=== PATIENT | female | born 1955 | race Caucasian/White ===

== ENCOUNTER → 2016-09-09 | Outpatient (REF) | payer MEDICARE ==
[~2016-09-09] MED LIST: AMIT24CA5 PO; CRAN250C2 PO; DITR5TAB PO; FISH1000 PO; GING500C2 PO; MAGN250T2 PO; MIRA33504 PO; OMEP40CA2 PO; PHAZ1CAP7 PO; PROBCAP4 PO; VENL37CA PO; VITA200T2 PO; [UNRECOGNIZED DRUG - OTHER] PO
[2016-09-09 12:07] LABS: BASO # 0.1 K/mm3 (0.0-0.2); BASO % 1.6 % (0.0-1.0); EOS # 0.1 K/mm3 (0.0-0.50); EOS % 2.2 % (0.0-3.0); LARGE UNSTAINED CELL # 0.4 K/mm3 (0.0-0.4); LARGE UNSTAINED CELL % 5.5 % (0.0-4.0); LYMPH # 2.1 K/mm3 (1.5-4.5); LYMPH % 27.1 % (24.0-44.0); MEAN CORPUSCULAR HEMOGLOBIN 29.4 pg (27.0-33.0); MEAN CORPUSCULAR HGB CONC 34.1 g/dl (32.0-36.5); MEAN CORPUSCULAR VOLUME 86.1 fl (80.0-96.0); MONO # 0.8 K/mm3 (0.0-0.8); MONO % 12.1 % (0.0-5.0); NEUTROPHILS # 3.3 K/mm3 (1.8-7.7); NEUTROPHILS % 51.5 % (36.0-66.0); PLATELET COUNT, AUTOMATED 273 k/mm3 (150-450); RED CELL DISTRIBUTION WIDTH 12.9 % (11.5-14.5); WHITE BLOOD COUNT 6.4 K/mm3 (4.0-10.0)
[2016-09-09 12:27] LABS: VITAMIN B12 LEVEL 507 PG/ML (247-911)
[2016-09-09 12:28] LABS: ALBUMIN 3.8 GM/DL (3.2-5.2); ALBUMIN/GLOBULIN RATIO 1.27 (1.00-1.93); ALKALINE PHOSPHATASE 78 U/L (45-117); ALT/SGPT 20 U/L (12-78); ANION GAP 8 MEQ/L (8-16); AST/SGOT 15 U/L (15-37); BILIRUBIN,TOTAL 0.6 MG/DL (0.2-1.0); BLOOD UREA NITROGEN 18 MG/DL (7-18); CALCIUM LEVEL 9.1 MG/DL (8.5-10.1); CARBON DIOXIDE LEVEL 29 MEQ/L (21-32); CHLORIDE LEVEL 106 MEQ/L (98-107); CHOLESTEROL LEVEL 251 MG/DL (<200); CREATININE FOR GFR 0.67 MG/DL (0.55-1.02); FERRITIN 27 NG/ML (8-252); GLOMERULAR FILTRATION RATE > 60.0 (>51); GLUCOSE, FASTING 86 MG/DL (70-105); POTASSIUM SERUM 4.9 MEQ/L (3.5-5.1); SODIUM LEVEL 143 MEQ/L (136-145); TOTAL PROTEIN 6.8 GM/DL (6.4-8.2); TRIGLYCERIDES LEVEL 88 MG/DL (<150)
== END ==
LOC: M SFHCCLAY 09:12
PROVIDERS: ATTEND Family Medicine
DX: R53.83 Other fatigue (principal); E78.2 Mixed hyperlipidemia; E16.2 Hypoglycemia, unspecified; R06.09 Other forms of dyspnea; Z79.899 Other long term (current) drug therapy
CPT/HCPCS: 80053; 80061; 82306; 82607; 82728; 83036; 84439; 84443; 85025; 93005; G0463

== ENCOUNTER → 2017-04-06 | Outpatient (REF) | payer MEDICARE ==
[~2017-04-06] MED LIST changes: -AMIT24CA5 PO; +AMIT24CA7 PO; -MAGN250T2 PO; +MAGN250T7 PO; +VENL37.52 PO; -VENL37CA PO
== END ==
LOC: M SMT 17:09
PROVIDERS: ATTEND Nurse Practitioner Women's Health
DX: N39.46 Mixed incontinence (principal)
CPT/HCPCS: 81001; 87088; 87186; G0463

== ENCOUNTER → 2017-04-14 | Outpatient (CLI) | payer MEDICARE ==
--- NOTE | 2017-04-14 15:54 | REP ---
Acute abdominal series including PA chest, upright abdomen and two supine views of the abdomen, total of four views: PA chest: The there are no comparisons. The lung ramirez are clear. Cardiac size is normal. The mj, mediastinum, and bony thorax are unremarkable. There is no free subdiaphragmatic air. Impression: Negative PA chest. Abdomen, supine upright views: There is a large volume of fecal residue throughout the colon. There is no bowel obstruction. There are one or two air-fluid levels in nondistended bowel loops. There are pelvic calcifications, likely phleboliths. There is a electronic device in the pelvis on the left. Impression: Large volume of fecal residue throughout the colon. Otherwise, negative supine and upright abdomen. There is an electronic device in the pelvis on the left. Signed by Mikel Goddard MD 04/14/2017 03:46 P
== END ==
LOC: M RAD 13:49
PROVIDERS: ATTEND Physician Assistant Medical
DX: K58.1 Irritable bowel syndrome with constipation (principal)

== ENCOUNTER → 2017-04-28 | Outpatient (REF) | payer MEDICARE | LOC: M SMT 17:11 | PROVIDERS: ATTEND Nurse Practitioner Women's Health | DX: N39.0 Urinary tract infection, site not specified (principal) ==

== ENCOUNTER → 2017-05-08 | Outpatient (REF) | payer MEDICARE ==
[2017-05-08 12:27] LABS: ALBUMIN 3.7 GM/DL (3.2-5.2); ALBUMIN/GLOBULIN RATIO 1.19 (1.00-1.93); ALKALINE PHOSPHATASE 75 U/L (45-117); ALT/SGPT 24 U/L (12-78); ANION GAP 9 MEQ/L (8-16); AST/SGOT 19 U/L (15-37); BILIRUBIN,TOTAL 0.6 MG/DL (0.2-1.0); BLOOD UREA NITROGEN 14 MG/DL (7-18); CALCIUM LEVEL 8.8 MG/DL (8.8-10.2); CARBON DIOXIDE LEVEL 29 MEQ/L (21-32); CHLORIDE LEVEL 108 MEQ/L (98-107); CHOLESTEROL LEVEL 274 MG/DL (<200); CREATININE FOR GFR 0.57 MG/DL (0.55-1.02); GLOMERULAR FILTRATION RATE > 60.0 (>45); GLUCOSE, FASTING 93 MG/DL (80-110); SODIUM LEVEL 146 MEQ/L (136-145); TOTAL PROTEIN 6.8 GM/DL (6.4-8.2); TRIGLYCERIDES LEVEL 91 MG/DL (<150)
== END ==
LOC: M SFHCCLAY 08:43
PROVIDERS: ATTEND Family Medicine
DX: E78.2 Mixed hyperlipidemia (principal)

== ENCOUNTER → 2017-05-11 | Outpatient (REF) | payer MEDICARE ==
[2017-05-12 12:38] LABS: MEAN CORPUSCULAR HEMOGLOBIN 30.2 pg (27.0-33.0); MEAN CORPUSCULAR HGB CONC 33.3 g/dl (32.0-36.5); MEAN CORPUSCULAR VOLUME 90.6 fl (80.0-96.0); RED CELL DISTRIBUTION WIDTH 12.4 % (11.5-14.5); WHITE BLOOD COUNT 5.7 K/mm3 (4.0-10.0)
[2017-05-12 23:26] LABS: EOSINOPHILS 2 % (0-5)
== END ==
LOC: M SFHCCLAY 18:52
PROVIDERS: ATTEND Family Medicine
DX: R53.83 Other fatigue (principal); E78.2 Mixed hyperlipidemia; K58.9 Irritable bowel syndrome, unspecified; K21.9 Gastro-esophageal reflux disease without esophagitis; F41.9 Anxiety disorder, unspecified; Z80.3 Family history of malignant neoplasm of breast; Z79.899 Other long term (current) drug therapy
CPT/HCPCS: 82306; 82607; 82728; 84439; 84443; 85007; 85027; G0463

== ENCOUNTER → 2017-11-13 | Outpatient (REF) | payer MEDICARE ==
[2017-11-13 17:36] LABS: ALBUMIN 3.9 GM/DL (3.2-5.2); ALBUMIN/GLOBULIN RATIO 1.26 (1.00-1.93); ALKALINE PHOSPHATASE 71 U/L (45-117); ALT/SGPT 18 U/L (12-78); ANION GAP 9 MEQ/L (8-16); AST/SGOT 20 U/L (7-37); BLOOD UREA NITROGEN 19 MG/DL (7-18); CALCIUM LEVEL 8.9 MG/DL (8.8-10.2); CARBON DIOXIDE LEVEL 29 MEQ/L (21-32); CHLORIDE LEVEL 103 MEQ/L (98-107); CHOLESTEROL LEVEL 241 MG/DL (<200); CHOLESTEROL RISK RATIO 4.547 (<5); CREATININE FOR GFR 0.77 MG/DL (0.55-1.30); FREE T4 1.04 NG/DL (0.76-1.46); GLOMERULAR FILTRATION RATE > 60.0 (>45); GLUCOSE, FASTING 87 MG/DL (70-100); HDL CHOLESTEROL 53 MG/DL (>40); LDL CHOLESTEROL 169.2 MG/DL (<100); NON-HDL-C 188 MG/DL; POTASSIUM SERUM 4.1 MEQ/L (3.5-5.1); SODIUM LEVEL 141 MEQ/L (136-145); TRIGLYCERIDES LEVEL 94 MG/DL (<150)
== END ==
LOC: M SFHCCLAY 09:35
DX: E78.2 Mixed hyperlipidemia (principal); R53.83 Other fatigue
CPT/HCPCS: 84443

== ENCOUNTER → 2017-11-25 | Outpatient (REF) | payer MEDICARE ==
[2017-11-25 16:40] LABS: ERYTHROCYTE SEDIMENTATION RATE 6 mm/hr (0-30)
[2017-11-25 17:07] LABS: C REACTIVE PROTEIN QUANTITATIV < 0.30 MG/DL (0.00-0.30)
[2017-11-25 17:07] LABS: RHEUMATOID FACTOR QUANT < 10.0 IU/ML (<15.0)
[2017-11-28 00:08] LABS: CYCLIC CITRULLINATED PEPTIDE 4 units (0-19)
[2017-11-28 00:08] LABS: ANA (HEP2) Negative (.)
== END ==
LOC: M SFHCCLAY 10:00
DX: R51 Headache (principal); R53.83 Other fatigue; R21 Rash and other nonspecific skin eruption
CPT/HCPCS: 86140

== ENCOUNTER → 2018-04-07 | Outpatient (REF) | payer MEDICARE ==
[2018-04-07 18:31] LABS: APPEARANCE, URINE HAZY (CLEAR); BACTERIA, URINE AUTO 1+ (NEGATIVE); BILIRUBIN, URINE AUTO NEGATIVE (NEGATIVE); BLOOD, URINE BLOOD NEGATIVE (NEGATIVE); CALCIUM OXALATE CRYSTALS LARGE; COLOR, URINE YELLOW (YELLOW); GLUCOSE, URINE (UA) AUTO NEGATIVE (NEGATIVE); KETONE, URINE AUTO NEGATIVE (NEGATIVE); LEUKOCYTE ESTERASE, URINE AUTO TRACE (NEGATIVE); MUCUS, URINE SMALL (NEGATIVE); NITRITE, URINE AUTO NEGATIVE (NEGATIVE); PROTEIN, URINE AUTO NEGATIVE (NEGATIVE); RBC, URINE AUTO 0 /HPF (0-3); SPECIFIC GRAVITY URINE AUTO 1.021 (1.002-1.035); SQUAMOUS EPITHELIAL CELL UR AU 2 /HPF (0-6); UROBILINOGEN, URINE AUTO 0.2 mg/dL (0.0-2.0); WBC, URINE AUTO 6 /HPF (0-3)
== END ==
LOC: M SMT 16:47
DX: R30.0 Dysuria (principal)
CPT/HCPCS: 81001

== ENCOUNTER → 2018-04-20 | Outpatient (REF) | payer MEDICARE ==
[2018-04-20 18:53] LABS: APPEARANCE, URINE CLEAR (CLEAR); BACTERIA, URINE AUTO NEGATIVE (NEGATIVE); BILIRUBIN, URINE AUTO NEGATIVE (NEGATIVE); BLOOD, URINE BLOOD NEGATIVE (NEGATIVE); COLOR, URINE YELLOW (YELLOW); GLUCOSE, URINE (UA) AUTO NEGATIVE (NEGATIVE); KETONE, URINE AUTO NEGATIVE (NEGATIVE); LEUKOCYTE ESTERASE, URINE AUTO NEGATIVE (NEGATIVE); MUCUS, URINE SMALL (NEGATIVE); NITRITE, URINE AUTO NEGATIVE (NEGATIVE); PROTEIN, URINE AUTO NEGATIVE (NEGATIVE); RBC, URINE AUTO 0 /HPF (0-3); SPECIFIC GRAVITY URINE AUTO 1.023 (1.002-1.035); SQUAMOUS EPITHELIAL CELL UR AU 1 /HPF (0-6); UROBILINOGEN, URINE AUTO 0.2 mg/dL (0.0-2.0); WBC, URINE AUTO 2 /HPF (0-3)
== END ==
LOC: M SMT 17:24
DX: N39.0 Urinary tract infection, site not specified (principal)
CPT/HCPCS: 81001

== ENCOUNTER 2018-05-04 15:40 | Emergency (ER) | payer MEDICARE ==
[2018-05-04 17:19] LABS: BASO # 0.1 10^3/uL (0.0-0.2); BASO % 0.6 % (0.0-1.0); EOS # 0.1 10^3/uL (0.0-0.50); EOS % 1.2 % (0.0-3.0); HEMATOCRIT 47.6 % (36.0-47.0); HEMOGLOBIN 15.8 g/dl (12.0-15.5); IMMATURE GRANULOCYTE % 0.4 % (0-3.0); LYMPH # 2.9 10^3/uL (1.5-4.5); LYMPH % 30.9 % (24.0-44.0); MEAN CORPUSCULAR HEMOGLOBIN 29.3 pg (27.0-33.0); MEAN CORPUSCULAR HGB CONC 33.2 g/dl (32.0-36.5); MEAN CORPUSCULAR VOLUME 88.1 fl (80.0-96.0); MONO # 0.7 10^3/uL (0.0-0.8); MONO % 7.6 % (0.0-5.0); NEUTROPHILS # 5.5 10^3/uL (1.8-7.7); NEUTROPHILS % 59.3 % (36.0-66.0); PLATELET COUNT, AUTOMATED 299 10^3/uL (150-450); RED CELL DISTRIBUTION WIDTH 12.1 % (11.5-14.5); WHITE BLOOD COUNT 9.3 10^3/uL (4.0-10.0)
[2018-05-04 17:25] LABS: KETONE, URINE AUTO RFX NEGATIVE (NEGATIVE); LEUKOCYTE ESTERASE UR AUTO RFX NEGATIVE (NEGATIVE); MUCUS, URINE RFX SMALL (NEGATIVE); NITRITE, URINE AUTO RFX NEGATIVE (NEGATIVE); RBC, URINE AUTO RFX 1 /HPF (0-3); SQUAM EPITHELIAL CELL UR AURFX 0 /HPF (0-6); WBC, URINE AUTO RFX 1 /HPF (0-3)
[2018-05-04 17:39] LABS: ALBUMIN 4.4 GM/DL (3.2-5.2); ALKALINE PHOSPHATASE 89 U/L (45-117); ALT/SGPT 21 U/L (12-78); ANION GAP 8 MEQ/L (8-16); AST/SGOT 19 U/L (7-37); BILIRUBIN,DIRECT 0.2 MG/DL (0.0-0.2); BILIRUBIN,TOTAL 0.8 MG/DL (0.2-1.0); BLOOD UREA NITROGEN 13 MG/DL (7-18); CALCIUM LEVEL 9.3 MG/DL (8.8-10.2); CARBON DIOXIDE LEVEL 29 MEQ/L (21-32); CHLORIDE LEVEL 102 MEQ/L (98-107); CREATININE FOR GFR 0.73 MG/DL (0.55-1.30); GLOMERULAR FILTRATION RATE > 60.0 (>45); GLUCOSE, FASTING 85 MG/DL (70-100); LIPASE 144 U/L (73-393); POTASSIUM SERUM 4.2 MEQ/L (3.5-5.1); SODIUM LEVEL 139 MEQ/L (136-145); TOTAL PROTEIN 8.4 GM/DL (6.4-8.2)
[2018-05-04] MEDS ORDERED: ISOVUE-370 76% 100ML VIAL (Q9967) As Ordered (17:51)
== END 2018-05-04 19:34 | disposition home or self-care (01) ==
LOC: M ED 15:40
DX: K59.00 Constipation, unspecified (principal); F41.9 Anxiety disorder, unspecified; K21.9 Gastro-esophageal reflux disease without esophagitis; Z87.19 Personal history of other diseases of the digestive system; Z79.899 Other long term (current) drug therapy
CPT/HCPCS: Q9967

== ENCOUNTER → 2018-06-08 | Outpatient (REF) | payer MEDICARE | LOC: M LAB REF 17:15 | DX: L98.8 Other specified disorders of the skin and subcutaneous tissue (principal) | CPT/HCPCS: 88305 ==

== ENCOUNTER → 2018-07-19 | Outpatient (REF) | payer MEDICARE ==
[2018-07-19 13:33] LABS: APPEARANCE, URINE HAZY (CLEAR); BACTERIA, URINE AUTO 1+ (NEGATIVE); BILIRUBIN, URINE AUTO NEGATIVE (NEGATIVE); BLOOD, URINE BLOOD NEGATIVE (NEGATIVE); COLOR, URINE YELLOW (YELLOW); GLUCOSE, URINE (UA) AUTO NEGATIVE (NEGATIVE); KETONE, URINE AUTO TRACE mg/dL (NEGATIVE); LEUKOCYTE ESTERASE, URINE AUTO 1+ (NEGATIVE); MUCUS, URINE SMALL (NEGATIVE); NITRITE, URINE AUTO NEGATIVE (NEGATIVE); PROTEIN, URINE AUTO 1+ mg/dL (NEGATIVE); RBC, URINE AUTO 1 /HPF (0-3); SPECIFIC GRAVITY URINE AUTO 1.025 (1.002-1.035); SQUAMOUS EPITHELIAL CELL UR AU 5 /HPF (0-6); WBC, URINE AUTO 39 /HPF (0-3); YEAST LIKE CELL URINE AUTO SMALL
== END ==
LOC: M SMT 13:11
DX: R10.9 Unspecified abdominal pain (principal)
CPT/HCPCS: 81001

== ENCOUNTER → 2018-07-28 | Outpatient (CLI) | payer MEDICARE | LOC: M RAD 08:52 | DX: R10.9 Unspecified abdominal pain (principal); Z87.442 Personal history of urinary calculi | CPT/HCPCS: 74176 ==

== ENCOUNTER → 2018-08-19 | Outpatient (REF) | payer MEDICARE ==
[~2018-08-19] MED LIST changes: +MYRB50TA; +YUVA10TA3; +mag citrate
== END ==
LOC: M SFHCCLAY 14:06
PROVIDERS: ATTEND Family Medicine
DX: Z87.440 Personal history of urinary (tract) infections (principal); K59.00 Constipation, unspecified; K58.9 Irritable bowel syndrome, unspecified
CPT/HCPCS: 87088; 87186; G0463

== ENCOUNTER → 2018-11-15 | Outpatient (REF) | payer MEDICARE ==
[2018-11-16 11:41] LABS: BASO # 0.1 10^3/uL (0.0-0.2); BASO % 0.7 % (0.0-1.0); EOS # 0.1 10^3/uL (0.0-0.50); HEMATOCRIT 44.1 % (36.0-47.0); HEMOGLOBIN 14.3 g/dl (12.0-15.5); LYMPH # 2.1 10^3/uL (1.5-4.5); LYMPH % 30.3 % (24.0-44.0); MEAN CORPUSCULAR HEMOGLOBIN 29.5 pg (27.0-33.0); MEAN CORPUSCULAR HGB CONC 32.4 g/dl (32.0-36.5); MEAN CORPUSCULAR VOLUME 90.9 fl (80.0-96.0); MONO # 0.6 10^3/uL (0.0-0.8); MONO % 8.2 % (0.0-5.0); NEUTROPHILS % 59.2 % (36.0-66.0); PLATELET COUNT, AUTOMATED 323 10^3/uL (150-450); RED BLOOD COUNT 4.85 10^6/uL (4.00-5.40); WHITE BLOOD COUNT 6.8 10^3/uL (4.0-10.0)
[2018-11-16 12:56] LABS: ALBUMIN 3.9 GM/DL (3.2-5.2); ALT/SGPT 18 U/L (12-78); BILIRUBIN,TOTAL 0.6 MG/DL (0.2-1.0); BLOOD UREA NITROGEN 15 MG/DL (7-18); CALCIUM LEVEL 8.9 MG/DL (8.8-10.2); CARBON DIOXIDE LEVEL 25 MEQ/L (21-32); CHLORIDE LEVEL 110 MEQ/L (98-107); CHOLESTEROL LEVEL 277 MG/DL (<200); CHOLESTEROL RISK RATIO 5.326 (<5); CREATININE FOR GFR 0.76 MG/DL (0.55-1.30); GLOMERULAR FILTRATION RATE > 60.0 (>45); GLUCOSE, FASTING 84 MG/DL (70-100); HDL CHOLESTEROL 52 MG/DL (>40); LDL CHOLESTEROL 209 MG/DL (<100); NON-HDL-C 225 MG/DL; POTASSIUM SERUM 5.5 MEQ/L (3.5-5.1); SODIUM LEVEL 141 MEQ/L (136-145); TOTAL PROTEIN 7.3 GM/DL (6.4-8.2); TRIGLYCERIDES LEVEL 80 MG/DL (<150)
== END ==
LOC: M SFHCCLAY 14:18
PROVIDERS: ATTEND Family Medicine
DX: E78.2 Mixed hyperlipidemia (principal); R53.82 Chronic fatigue, unspecified; R06.09 Other forms of dyspnea; Z13.21 Encounter for screening for nutritional disorder

== ENCOUNTER 2019-03-15 08:09 | Day surgery (SDC) | payer MEDICARE ==
[~2019-03-15] VITALS: Ht 162.6 cm; Wt 65.8 kg
[~2019-03-15 08:09] MED LIST changes: +EFFE37.5 PO; +EFFE75CA2 PO; +GREE250C2 PO; +LINZ145C PO; +MYRB50TA PO; +OMEG1CAP16 PO; +OSTE5TAB PO; +TOPA100T12 PO
[2019-03-15] MEDS ORDERED: NS 1,000 ML IV ONE (08:30)
[2019-03-15] MEDS ORDERED: PROPOFOL 200 MG/20 ML VIAL As Ordered ONE ×2 (09:10→09:20)
--- NOTE | 2019-03-15 09:35 | ROOR ---
Patient Name: Mirela Briones Procedure Date: 03/15/2019 9:05 AM Date of : 1955 Age: 64 Room: [facility] Gender: Female Note Status: Finalized Procedure: Colonoscopy Indications: High risk colon cancer surveillance: Personal history of colonic polyps, Family history of colon cancer in a first-degree relative Providers: Andrew WEBSTER MD Referring MD: JERRY YU DO Requesting Provider: Medicines: Monitored Anesthesia Care Complications: No immediate complications. Procedure: Pre-Anesthesia Assessment: - The heart rate, respiratory rate, oxygen saturations, blood pressure, adequacy of pulmonary ventilation, and response to care were monitored throughout the procedure. The Colonoscope was introduced through the anus and advanced to the terminal ileum, with identification of the appendiceal orifice and IC valve. The colonoscopy was performed without difficulty. The patient tolerated the procedure well. The quality of the bowel preparation was good. Findings: The perianal and digital rectal examinations were normal. A 5 mm polyp was found in the descending colon. The polyp was sessile. The polyp was removed with a cold snare. Resection and retrieval were complete. Internal hemorrhoids were found during retroflexion. The hemorrhoids were moderate. A diffuse area of mildly melanotic mucosa was found in the entire colon. The exam was otherwise without abnormality on direct and retroflexion views. Impression: - One 5 mm polyp in the descending colon, removed with a cold snare. Resected and retrieved. - Internal hemorrhoids. - The colon examination was otherwise normal on direct and retroflexion views. Recommendation: - Repeat colonoscopy in 5 years. Andrew Webster MD Andrew WEBSTER MD 03/15/2019 9:34:42 AM Electronically signed by Andrew WEBSTER MD Number of Addenda: 0 Note Initiated On: 03/15/2019 9:05 AM Estimated Blood Loss: Estimated blood loss: none.
[2019-03-15 09:50] VITALS: BP 116/68
== END 2019-03-15 09:59 | disposition home or self-care (01) ==
LOC: M OPP 08:09
PROVIDERS: ATTEND Internal Medicine Gastroenterology
DX: Z12.11 Encounter for screening for malignant neoplasm of colon (principal); Z86.010 Personal history of colon polyps; Z80.0 Family history of malignant neoplasm of digestive organs; K64.8 Other hemorrhoids; K63.89 Other specified diseases of intestine

== ENCOUNTER → 2019-05-23 | Outpatient (REF) | payer MEDICARE ==
[~2019-05-23] MED LIST changes: +APPL300T4 PO; +B-122500 PO; +BERBERINE PO; +GNP250TA9 PO; -OMEP40CA2 PO; +OMEP40CA97 PO; +VENL37.598 PO; +[UNRECOGNIZED DRUG - OTHER] PO
[2019-05-24 12:09] LABS: ALBUMIN 3.8 GM/DL (3.2-5.2); ALT/SGPT 15 U/L (12-78); BILIRUBIN,TOTAL 0.6 MG/DL (0.2-1.0); BLOOD UREA NITROGEN 14 MG/DL (7-18); CARBON DIOXIDE LEVEL 24 MEQ/L (21-32); CHLORIDE LEVEL 112 MEQ/L (98-107); CHOLESTEROL LEVEL 256 MG/DL (<200); CHOLESTEROL RISK RATIO 4.413 (<5); CREATININE FOR GFR 0.79 MG/DL (0.55-1.30); GLOMERULAR FILTRATION RATE > 60.0 (>45); GLUCOSE, FASTING 101 MG/DL (70-100); HDL CHOLESTEROL 58 MG/DL (>40); LDL CHOLESTEROL 176 MG/DL (<100); NON-HDL-C 198 MG/DL; POTASSIUM SERUM 4.1 MEQ/L (3.5-5.1); SODIUM LEVEL 142 MEQ/L (136-145); TOTAL PROTEIN 6.8 GM/DL (6.4-8.2); TRIGLYCERIDES LEVEL 108 MG/DL (<150)
[2019-05-24 12:15] LABS: VITAMIN B12 LEVEL 451 PG/ML (247-911)
== END ==
LOC: M SFHCCLAY 14:06
PROVIDERS: ATTEND Family Medicine
DX: E78.2 Mixed hyperlipidemia (principal); E53.8 Deficiency of other specified B group vitamins

== ENCOUNTER 2019-06-02 11:15 | Day surgery (SDC) | payer MEDICARE ==
[~2019-06-02] VITALS: Ht 162.6 cm; Wt 69.8 kg
[~2019-06-02 11:15] MED LIST changes: -APPL300T4 PO; -GNP250TA9 PO; +OMEP40CA2 PO; -OMEP40CA97 PO
[2019-06-02] MEDS ORDERED: NS 1,000 ML IV ONE (11:45)
[2019-06-02] MEDS ORDERED: LIDOCAINE 2% INJ 100 MG/5 ML SDV (FOR ANES.) As Ordered ONE (13:21)
[2019-06-02] MEDS ORDERED: PROPOFOL 200 MG/20 ML VIAL As Ordered ONE ×2 (13:21→13:29)
--- NOTE | 2019-06-02 13:32 | ROOR ---
Patient Name: Mirela Briones Procedure Date: 06/02/2019 1:15 PM Date of : 1955 Age: 64 Room: [facility] Gender: Female Note Status: Finalized Procedure: Upper GI endoscopy Indications: Heartburn, Abnormal CT of the GI tract Providers: Andrew WEBSTER MD Referring MD: JERRY YU DO Requesting Provider: Medicines: Monitored Anesthesia Care Complications: No immediate complications. Procedure: Pre-Anesthesia Assessment: - The heart rate, respiratory rate, oxygen saturations, blood pressure, adequacy of pulmonary ventilation, and response to care were monitored throughout the procedure. The Endoscope was introduced through the mouth, and advanced to the second part of duodenum. The upper GI endoscopy was accomplished without difficulty. The patient tolerated the procedure well. Findings: The esophagus was normal. The stomach was normal. The examined duodenum was normal. Biopsies were taken with a cold forceps in the entire examined stomach for histology. Impression: - Normal esophagus. - Normal stomach. - Normal examined duodenum. - Biopsies were taken with a cold forceps for histology in the entire examined stomach. Recommendation: - Telephone endoscopist for pathology results in 2 weeks. - Observe patient's clinical course. Andrew Webster MD Andrew WEBSTER MD 06/02/2019 1:32:24 PM Electronically signed by Andrew WEBSTER MD Number of Addenda: 0 Note Initiated On: 06/02/2019 1:15 PM Estimated Blood Loss: Estimated blood loss: none.
[2019-06-02 13:55] VITALS: BP 121/84
== END 2019-06-02 14:07 | disposition home or self-care (01) ==
LOC: M OPP 11:15
PROVIDERS: ATTEND Internal Medicine Gastroenterology
DX: R93.3 Abnormal findings on diagnostic imaging of other parts of digestive tract (principal); R12 Heartburn; M19.90 Unspecified osteoarthritis, unspecified site; F41.9 Anxiety disorder, unspecified; R51 Headache; Z97.8 Presence of other specified devices; Z87.442 Personal history of urinary calculi; Z91.048 Other nonmedicinal substance allergy status; Z91.040 Latex allergy status

== ENCOUNTER 2019-09-08 11:23 | Day surgery (SDC) | payer MEDICARE ==
[~2019-09-08] VITALS: Ht 162.6 cm; Wt 72.6 kg
[~2019-09-08 11:23] MED LIST changes: +APPL300T4 PO; +GNP250TA9 PO; +LR 1,000 ML IV ONE; -OMEP40CA2 PO; +OMEP40CA97 PO
[2019-09-08] MEDS ORDERED: BERBERINE PO (12:27)
[2019-09-08] MEDS ORDERED: propofoL 200 MG/20 ML VIAL As Ordered ONE (12:49)
[2019-09-08] MEDS ORDERED: MIDAZOLAM INJ 2 MG/2 ML VIAL (J2250) As Ordered ONE (12:50)
[2019-09-08] MEDS ORDERED: fentaNYL 100 MCG/2 ML INJECTION (J3010) As Ordered ONE (12:51)
[2019-09-08] MEDS ORDERED: LIDOCAINE 2% INJ 100 MG/5 ML SDV (FOR ANES.) As Ordered ONE (12:51)
[2019-09-08] MEDS ORDERED: dexameTHASONE 4 MG/ML 1ML VIAL (J1100) As Ordered ONE (12:51)
[2019-09-08] MEDS ORDERED: ONDANSETRON 4MG/2ML VIAL (J2405) As Ordered ONE (12:51)
[2019-09-08] MEDS ORDERED: ROCURONIUM BROMIDE 50 MG/5 ML VIAL As Ordered ONE (12:52)
[2019-09-08] MEDS ORDERED: LIDOCAINE 1% SDV INJ 30 ML VIAL As Ordered ONE (14:13)
[2019-09-08] MEDS ORDERED: KETAMINE HCL 200 MG/20 ML VIAL As Ordered ONE (15:00)
[2019-09-08 15:55] VITALS: BP 110/61
--- NOTE | 2019-09-08 17:35 | RO ---
DATE OF PROCEDURE: 09/08/2019 PREOPERATIVE DIAGNOSIS: Desire for removal of her InterStim. POSTOPERATIVE DIAGNOSIS: Desire for removal of her InterStim. PROCEDURE: Removal of InterStim device and lead. SURGEON: Saray Triana MD CERTIFIED MEDICINE AIDE: None. ANESTHESIA: Monitored anesthesia care (MAC) and local. DESCRIPTION OF PROCEDURE: Mirela was brought to the operating room where sufficient MAC sedation was given, and she was placed prone as typical for these cases and prepped and draped in the usual fashion. Local 1% lidocaine was injected over the midline site of the lead placement and the site of the pocket placement. That was given a full minute to set up and then we incised over the device, carefully dissected down to the pocket and removed the InterStim device. We then wiggled the connection to the lead so that we could locate the lead over the lower spine/upper sacrum and then made a careful incision there over the site of previous placement. And using the angled forceps, we were able to bring the lead out through that wound. We then cut it from the actual device and withdrew the rest of the lead through the wound so that we could wrap that around a Ava to hold the lead carefully. And placing it in the proper direction and under gentle but persistent tension, carefully sahra the lead out from its third sacrum foramen placement. We were able to draw the lead out and see the end where we had all of the end of the lead all the metal sites, all four of them intact, then we withdrew the lead intact and complete. Then, carefully did a deep closure of the pocket over the patient's posterior left side and then used #3-0 Vicryl for the skin of the two wounds and put dry sterile dressings in place. Estimated blood loss for the procedure was maybe 3 mL. Fluid replacement: Crystalloid. Complications: None. Condition and Disposition: Mirela tolerated the procedure well and was recovering in the recovery room in good condition.
== END 2019-09-08 16:05 | disposition home or self-care (01) ==
LOC: M SDC 11:23
PROVIDERS: ATTEND Obstetrics & Gynecology
DX: Z45.49 Encounter for adjustment and management of other implanted nervous system device (principal); R51 Headache; F41.9 Anxiety disorder, unspecified; K21.9 Gastro-esophageal reflux disease without esophagitis; K58.9 Irritable bowel syndrome, unspecified; K59.00 Constipation, unspecified; E78.2 Mixed hyperlipidemia; J45.909 Unspecified asthma, uncomplicated; N28.9 Disorder of kidney and ureter, unspecified; M54.9 Dorsalgia, unspecified; Z87.440 Personal history of urinary (tract) infections; E53.8 Deficiency of other specified B group vitamins; M19.90 Unspecified osteoarthritis, unspecified site; Z87.891 Personal history of nicotine dependence; Z91.048 Other nonmedicinal substance allergy status; Z79.899 Other long term (current) drug therapy
CPT/HCPCS: 64595; J1100; J2250; J2405; J3010

== ENCOUNTER → 2019-10-14 | Outpatient (CLI) | payer MEDICARE ==
[~2019-10-14] MED LIST changes: -LR 1,000 ML IV ONE
--- NOTE | 2019-10-14 15:04 | REPVR ---
PROCEDURE INFORMATION: Exam: MR Lumbar Spine Without Contrast. Exam date and time: 10/14/2019 1:29 PM Age: 64 years old Clinical indication: Low back pain; Additional info: Lbp TECHNIQUE: Imaging protocol: Multiplanar magnetic resonance images of the lumbar spine without intravenous contrast. COMPARISON: No relevant prior studies available. FINDINGS: Vertebrae: Unremarkable. Spinal cord: Normal signal. No cord compression. L1-L2: There is degenerative disc disease including disc space narrowing and dessication. There is a small right paracentral disc protrusion with moderate compromise of the right lateral recess and right neuroforamen. There is facet arthropathy and ligamentum flavum hypertrophy. L2-L3: There is degenerative disc disease including disc space narrowing and dessication. There is mild disc bulging. Disc bulging extends into both neural foramen causing mild bilateral neural foraminal narrowing. There is facet arthropathy and ligamentum flavum hypertrophy. L3-L4: There is disc desiccation. There is mild disc bulging. Disc bulging extends into both neural foramen causing mild bilateral neural foraminal narrowing. There is exuberant bilateral facet arthropathy and ligamentum flavum hypertrophy. There is mild spinal canal stenosis. L4-L5: There is grade 1 anterior spondylolisthesis at L4/5. There is disc desiccation. There is exuberant bilateral facet arthropathy and ligamentum flavum hypertrophy. There is moderate spinal canal stenosis. L5-S1: There is mild disc bulging. There is facet arthropathy and ligamentum flavum hypertrophy. There is mild spinal canal stenosis. There is what likely represents a right foraminal nerve sheath cyst. Soft tissues: Unremarkable. IMPRESSION: Multilevel degenerative changes causing variable degrees of spinal canal and neuroforaminal narrowing as described above. Electronically signed by: Ashkan Flores On 10/14/2019 15:04:35 PM
== END ==
LOC: M RAD 12:38
PROVIDERS: ATTEND Orthopaedic Surgery
DX: M51.26 Other intervertebral disc displacement, lumbar region (principal)

== ENCOUNTER → 2019-11-02 | Outpatient (CLI) | payer MEDICARE ==
--- NOTE | 2019-11-02 16:57 | REPVR ---
PROCEDURE INFORMATION: Exam: MR Head Without Contrast Exam date and time: 11/02/2019 3:21 PM Age: 64 years old Clinical indication: Condition or disease; Other: Other disorders of pituitary gland; Patient HX: Rathkes cleft cyst TECHNIQUE: Imaging protocol: MR of the head without contrast. COMPARISON: No relevant prior studies available. FINDINGS: Brain: No restricted diffusion is seen to suggest acute infarction. There is no acute intracranial hemorrhage, cerebral edema, or midline shift. Age-related cerebral and cerebellar substance loss is present. Scattered increased T2 and FLAIR signal within the periventricular and subcortical white matter is present. This is nonspecific but likely related to chronic microangiopathic ischemic change. Ventricles: No hydrocephalus. Bones/joints: Unremarkable. Soft tissues: Unremarkable. Sinuses: Normal as visualized. No acute sinusitis. Mastoid air cells: Normal as visualized. No mastoid effusion. Orbits: Unremarkable. Sella: Evaluation of the pituitary gland is limited on this examination. There is a nonspecific 10 x 8 x 6 mm high T1 signal lesion within the posterior pituitary gland. A complex Rathke's cleft cyst or an adenoma with proteinaceous or hemorrhagic material within it are possibilities. Correlation with previous imaging is suggested. IMPRESSION: 1. No acute intracranial abnormality. 2. Nonspecific 10 mm pituitary lesion as discussed above. Correlation with previous imaging is recommended. Electronically signed by: Mariano Baig On 11/02/2019 16:57:31 PM
== END ==
LOC: M RAD 14:49
PROVIDERS: ATTEND Neurological Surgery
DX: E23.6 Other disorders of pituitary gland (principal)

== ENCOUNTER → 2020-02-28 | Outpatient (CLI) | payer MEDICARE ==
[~2020-02-28] MED LIST changes: +PROHANCE 279.3MG/ML 15ML VIAL As Ordered ONE
[2020-02-28 14:07] LABS: BLOOD UREA NITROGEN 10 MG/DL (7-18); CREATININE FOR GFR 0.81 MG/DL (0.55-1.30); GLOMERULAR FILTRATION RATE > 60.0 (>45)
--- NOTE | 2020-03-01 09:50 | REP ---
MRI lumbar spine: 02/28/2020. Indication: Low back pain. Technique: Multiplanar short and long TR sequences of the lumbar spine were obtained including IV gadolinium images. Comparison: 10/14/2019. Findings: There are no areas of pathologic gadolinium enhancement. Interosseous hemangioma is noted within the inferior right L1 vertebral body. There are no significant change as compared to the previous study. There are no new disc herniations or areas of severe spinal canal / neural foraminal narrowing. Minimal anterolisthesis of L4 and L5 is present with diffuse disc uncovering/bulge and bilateral facet arthrosis resulting in mild recess and neural foraminal narrowing. Impression: No areas of pathologic gadolinium enhancement. Otherwise stable examination compared to approximately 4 months earlier. Electronically Signed by Oliver Laurent DO 03/01/2020 09:41 A
== END ==
LOC: M RAD 12:35
PROVIDERS: ATTEND Physician Assistant
DX: M47.896 Other spondylosis, lumbar region (principal)
CPT/HCPCS: 36415; 72158; 82565; 84520; A9576

== ENCOUNTER → 2020-03-16 | Outpatient (REF) | payer MEDICARE ==
[~2020-03-16] MED LIST changes: -PROHANCE 279.3MG/ML 15ML VIAL As Ordered ONE
[2020-03-16 12:49] LABS: BASO # 0.1 10^3/uL (0.0-0.2); BASO % 0.7 % (0.0-1.0); EOS # 0.1 10^3/uL (0.0-0.5); EOS % 1.7 % (0.0-3.0); HEMATOCRIT 43.5 % (36.0-47.0); HEMOGLOBIN 14.2 g/dl (12.0-15.5); LYMPH # 2.2 10^3/uL (1.5-5.0); LYMPH % 28.8 % (24.0-44.0); MEAN CORPUSCULAR HEMOGLOBIN 29.3 pg (27.0-33.0); MEAN CORPUSCULAR HGB CONC 32.6 g/dl (32.0-36.5); MEAN CORPUSCULAR VOLUME 89.9 fl (80.0-96.0); MONO # 0.6 10^3/uL (0.0-0.8); MONO % 7.7 % (0.0-5.0); NEUTROPHILS # 4.6 10^3/uL (1.5-8.5); NEUTROPHILS % 60.7 % (36.0-66.0); PLATELET COUNT, AUTOMATED 277 10^3/uL (150-450); RED BLOOD COUNT 4.84 10^6/uL (4.00-5.40); WHITE BLOOD COUNT 7.6 10^3/uL (4.0-10.0)
[2020-03-16 13:13] LABS: ERYTHROCYTE SEDIMENTATION RATE 10 mm/hr (0-30)
[2020-03-16 13:20] LABS: ALBUMIN 3.5 GM/DL (3.2-5.2); ALT/SGPT 17 U/L (12-78); BILIRUBIN,TOTAL 0.4 MG/DL (0.2-1.0); BLOOD UREA NITROGEN 17 MG/DL (7-18); C REACTIVE PROTEIN QUANTITATIV < 0.30 MG/DL (0.00-0.30); CALCIUM LEVEL 8.4 MG/DL (8.8-10.2); CARBON DIOXIDE LEVEL 26 MEQ/L (21-32); CHLORIDE LEVEL 113 MEQ/L (98-107); CREATININE FOR GFR 0.71 MG/DL (0.55-1.30); GLOMERULAR FILTRATION RATE > 60.0 (>45); GLUCOSE, FASTING 91 MG/DL (70-100); RHEUMATOID FACTOR QUANT < 10.0 IU/ML (<15.0); SODIUM LEVEL 146 MEQ/L (136-145); TOTAL PROTEIN 6.9 GM/DL (6.4-8.2)
[2020-03-18 18:14] LABS: ANA (HEP2) Negative (.); CYCLIC CITRULLINATED PEPTIDE 5 units (0-19); Lyme Disease IgG/IgM Antibodie <0.91 ISR (0.00-0.90); Lyme Disease IgM Ab Quantitati <0.80 index (0.00-0.79)
== END ==
LOC: M SFHCCLAY 09:35
PROVIDERS: ATTEND Family Medicine
DX: R21 Rash and other nonspecific skin eruption (principal)

== ENCOUNTER → 2020-05-16 | Outpatient (REF) | payer MEDICARE ==
[2020-05-16 18:53] LABS: APPEARANCE, URINE CLEAR (CLEAR); BACTERIA, URINE AUTO NEGATIVE (NEGATIVE); BILIRUBIN, URINE AUTO NEGATIVE (NEGATIVE); BLOOD, URINE BLOOD NEGATIVE (NEGATIVE); COLOR, URINE YELLOW (YELLOW); GLUCOSE, URINE (UA) AUTO NEGATIVE (NEGATIVE); KETONE, URINE AUTO TRACE mg/dL (NEGATIVE); LEUKOCYTE ESTERASE, URINE AUTO NEGATIVE (NEGATIVE); MUCUS, URINE SMALL (NEGATIVE); NITRITE, URINE AUTO NEGATIVE (NEGATIVE); PROTEIN, URINE AUTO NEGATIVE (NEGATIVE); RBC, URINE AUTO 1 /HPF (0-3); SPECIFIC GRAVITY URINE AUTO 1.021 (1.002-1.035); SQUAMOUS EPITHELIAL CELL UR AU 1 /HPF (0-6); UROBILINOGEN, URINE AUTO 0.2 mg/dL (0.0-2.0); WBC, URINE AUTO 3 /HPF (0-3)
== END ==
LOC: M SMT 17:10
PROVIDERS: ATTEND Nurse Practitioner Women's Health
DX: R35.0 Frequency of micturition (principal)

== ENCOUNTER → 2020-05-31 | Outpatient (REF) | payer MEDICARE ==
[2020-05-31 13:36] LABS: APPEARANCE, URINE CLEAR (CLEAR); BACTERIA, URINE AUTO NEGATIVE (NEGATIVE); BILIRUBIN, URINE AUTO NEGATIVE (NEGATIVE); BLOOD, URINE BLOOD NEGATIVE (NEGATIVE); COLOR, URINE AMBER (YELLOW); GLUCOSE, URINE (UA) AUTO NEGATIVE (NEGATIVE); KETONE, URINE AUTO NEGATIVE (NEGATIVE); LEUKOCYTE ESTERASE, URINE AUTO TRACE (NEGATIVE); MUCUS, URINE SMALL (NEGATIVE); NITRITE, URINE AUTO NEGATIVE (NEGATIVE); PROTEIN, URINE AUTO NEGATIVE (NEGATIVE); RBC, URINE AUTO 2 /HPF (0-3); SPECIFIC GRAVITY URINE AUTO 1.023 (1.002-1.035); SQUAMOUS EPITHELIAL CELL UR AU 1 /HPF (0-6); UROBILINOGEN, URINE AUTO 0.2 mg/dL (0.0-2.0); WBC, URINE AUTO 11 /HPF (0-3)
== END ==
LOC: M SMT 13:02
PROVIDERS: ATTEND Nurse Practitioner Women's Health
DX: N39.0 Urinary tract infection, site not specified (principal)

== ENCOUNTER → 2020-07-09 | Outpatient (REF) | payer MEDICARE ==
[2020-07-10 11:44] LABS: BASO # 0.1 10^3/uL (0.0-0.2); BASO % 0.9 % (0.0-1.0); EOS # 0.1 10^3/uL (0.0-0.5); EOS % 1.5 % (0.0-3.0); HEMATOCRIT 44.1 % (36.0-47.0); HEMOGLOBIN 14.3 g/dl (12.0-15.5); LYMPH # 2.3 10^3/uL (1.5-5.0); LYMPH % 35.2 % (24.0-44.0); MEAN CORPUSCULAR HEMOGLOBIN 29.5 pg (27.0-33.0); MEAN CORPUSCULAR HGB CONC 32.4 g/dl (32.0-36.5); MEAN CORPUSCULAR VOLUME 90.9 fl (80.0-96.0); MONO # 0.5 10^3/uL (0.0-0.8); MONO % 8.2 % (0.0-5.0); NEUTROPHILS # 3.5 10^3/uL (1.5-8.5); NEUTROPHILS % 53.9 % (36.0-66.0); PLATELET COUNT, AUTOMATED 276 10^3/uL (150-450); RED BLOOD COUNT 4.85 10^6/uL (4.00-5.40); WHITE BLOOD COUNT 6.5 10^3/uL (4.0-10.0)
[2020-07-10 13:12] LABS: ERYTHROCYTE SEDIMENTATION RATE 7 mm/hr (0-30)
[2020-07-10 13:25] LABS: ALBUMIN 3.9 GM/DL (3.2-5.2); ALT/SGPT 17 U/L (12-78); BILIRUBIN,TOTAL 0.8 MG/DL (0.2-1.0); BLOOD UREA NITROGEN 15 MG/DL (7-18); CARBON DIOXIDE LEVEL 25 MEQ/L (21-32); CHLORIDE LEVEL 111 MEQ/L (98-107); CHOLESTEROL LEVEL 252 MG/DL (<200); CREATININE FOR GFR 0.78 MG/DL (0.55-1.30); GLOMERULAR FILTRATION RATE > 60.0 (>45); GLUCOSE, FASTING 86 MG/DL (70-100); HDL CHOLESTEROL 56 MG/DL (>40); LDL CHOLESTEROL 175 MG/DL (<100); NON-HDL-C 196 MG/DL; POTASSIUM SERUM 5.3 MEQ/L (3.5-5.1); SODIUM LEVEL 141 MEQ/L (136-145); TRIGLYCERIDES LEVEL 105 MG/DL (<150)
== END ==
LOC: M SFHCCLAY 14:28
PROVIDERS: ATTEND Family Medicine
DX: R51.9 Headache, unspecified (principal); K58.9 Irritable bowel syndrome, unspecified; R53.82 Chronic fatigue, unspecified; E78.2 Mixed hyperlipidemia

== ENCOUNTER → 2020-08-22 | Outpatient (CLI) | payer MEDICARE ==
--- NOTE | 2020-08-22 09:44 | REP ---
INDICATION: R06.09,DYSPNEA ON EXERTION,R05,COUGH COMPARISON: 04/14/2017 TECHNIQUE: PA and lateral. FINDINGS: The mediastinum and cardiac silhouette are normal. The lung ramirez are clear and without acute consolidation, effusion, or pneumothorax. The skeletal structures are intact and normal. IMPRESSION: No acute cardiopulmonary process. If the patient remains symptomatic consider chest CT for further investigation <Electronically signed by Bandar Koo > 08/22/20 0918
== END ==
LOC: M CLY 08:58
PROVIDERS: ATTEND Family Medicine
DX: R06.09 Other forms of dyspnea (principal); R05 Cough

== ENCOUNTER → 2020-10-12 | Outpatient (CLI) | payer MEDICARE ==
--- NOTE | 2020-10-12 15:54 | REPVR ---
PROCEDURE INFORMATION: Exam: MR Head Without Contrast Exam date and time: 10/12/2020 2:57 PM Age: 65 years old Clinical indication: Condition or disease; Other: Cyst; Additional info: Rathkes cleft cyst TECHNIQUE: Imaging protocol: MR of the head without contrast. COMPARISON: MRI-Brain without Contrast 11/02/2019 3:06 PM FINDINGS: Brain: Comparison to the previous MRI brain study from 11/02/2019 shows no interval change in the high T1 signal pituitary gland mass measuring 10 x 8 x 7 mm in size. No acute infarct or intracerebral bleed. Moderately extensive patchy periventricular leukomalacia in both cerebral hemispheres, consistent most likely with chronic underlying small vessel ischemic disease. The position, size and shape of the cerebellar tonsils are normal. The vestibulocochlear complexes bilaterally are normal. Normal base of skull vasculature flow voids. The mesial temporal lobes and hippocampal regions are normal. Cerebral ventricles: Normal. No ventriculomegaly. Bones/joints: Unremarkable. Paranasal sinuses: Normal as visualized. No acute sinusitis. Mastoid air cells: Normal as visualized. No mastoid effusion. Orbital cavity: Unremarkable. Soft tissues: Unremarkable. IMPRESSION: 1. Comparison to the previous MRI brain study from 11/02/2019 shows no interval change in the high T1 signal pituitary gland mass measuring 10 x 8 x 7 mm in size. The differential diagnosis is principally a complex Rathke's cleft cyst versus less likely a pituitary adenoma containing proteinaceous or hemorrhagic material or an intrasellar craniopharyngioma. 2. No acute infarct or intracerebral bleed. 3. Moderately extensive patchy periventricular leukomalacia in both cerebral hemispheres, consistent most likely with chronic underlying small vessel ischemic disease. Electronically signed by: Mendel Enrique On 10/12/2020 15:54:40 PM
== END ==
LOC: M RAD 14:16
PROVIDERS: ATTEND Neurological Surgery
DX: E23.6 Other disorders of pituitary gland (principal)

== ENCOUNTER 2020-10-22 16:11 | Emergency (ER) | payer MEDICARE ==
[~2020-10-22] VITALS: Ht 162.6 cm; Wt 76.9 kg
[2020-10-22] MEDS ORDERED: DULO1CAP5 (16:20)
[2020-10-22] MEDS ORDERED: OXYB-54 (16:20)
[2020-10-22] MEDS ORDERED: TOPI100T9 (16:20)
[2020-10-22] MEDS ORDERED: ALEN70TA82 (16:20)
--- OUTSIDE RECORDS SUMMARY | 2020-10-22 16:22 | CCD | Continuity of Care Document ---
Author Author Mirela REID MD Organization Unknown Address [address] [place] [id number] Phone [phone] Care Team Providers Care Hydraulic Riveter Name Role Phone Sherin Aburto N.P. AUTM Donovan Jensen D.O. AUTM [phone] Problems Active Problems Provider Date Urinary tract infectious disease Ruth Pompa MD Onset: 12/09/2011 Angel hematuria Lashell Rogers, N.P. Onset: 12/09/2011 Disorder of kidney and/or ureter Lashell Rogers N.P. Onsbrian t: 12/09/2011 H/O: urinary stone Lashell Rogers, N.P. Onset: 04/05/2012 Disorder of kidney and/or ureter Lashell Rogers N.PInez Onsbrian t: 04/05/2012 Social History Type Date Description Comments Sex Unknown Tobacco Use Start: Unknown End: Former Cigarette Sm oker Smoking Status Reviewed: 09/20/20 Former Cigarette Smoker ETOH Use Occ Alcohol Intake Allergies, Adverse Reactions, Alerts Description No Known Drug Allergies Medications Active Medications SIG Qnty Indications Ordering Provide r Date Osteo Bi-Flex Capsules Unknown Topiramate 100mg Tablets Take One Tablet By Mouth Twice A Day Unknown Alendronate Sodium 70mg Tablets Take 1 Tablet By Mouth 30 Minutes Before The First Food Beverage Or Medicine Of The Day With Plain Water Once Weekly Unknown Duloxetine HCL 30mg Caps DR Part Take One Capsule By Mouth Every Day Unknown Oxybutynin Chloride ER 5mg Tablets ER 24HR Take One Tablet By Mouth Once Daily Unkno wn Omeprazole 40mg Capsules DR Take One Capsule By Mouth Twice A Day Unknown Berberine 1000MG Unknown 00 Multi Vitamin Tablets take 1 tablet by mouth daily. Unknown Vitamin B12 100mcg Tablets 1 by mouth every day Unknown Apple Cider Vinegar Unknown Immunizations Description No Information Available Vital Signs Date Vital Result Comment 09/24/2020 12:47pm Body Temperature 97.0 F 09/05/2020 11:55am Height 64 inches 5'4" Weight 163.00 lb Weight 73.937 kg BMI (Body Mass Index) 28.0 kg/m2 BP Systolic 127 mmHg BP Diastolic 90 mmHg Heart Rate 78 /min Results Test Acquired Date Facility Test Result H/L Range Note 230 Ua Routine 09/24/2020 [facility] REF TO ADDRESS ON ORDER FOR (979)- - Ua Glucose Negative Ua Protein Negative Ua Nitrite Positive Ua Leuko Negative Ua Blood Negative Ua Color Not Entered Ua Ketones Negative Ua Clarity Not Entered Ua Specific [place] <=1.005 1.003-1.030 Ua PH 5.5 5.0-7.5 Ua Bilirubin Negative Ua Urobilinogen 0.2 E.U./dL 0.0-1.0 BUN And Creatinine 09/05/2020 [facility] [address] [place] [address] [id number] [phone] BUN 14.0 mg/dL 7.0-24.0 #Creat 09/05/2020 [facility] [address] [address] [phone] Creatinine 0.74 mg/dL 0.57-1.11 eGFR - Descent 93.3 >60.0 eGFR -- Non- Descent 77.0 >60.0 230 Ua Routine 09/05/2020 [facility] REF TO ADDRESS ON ORDER FOR (391)- - Ua Glucose Negative Ua Protein Negative Ua Nitrite Negative Ua Leuko Negative Ua Blood Negative Ua Color Not Entered Ua Ketones Trace Ua Clarity Not Entered Ua Specific [place] 1.020 1.003-1.030 Ua PH 5.5 5.0-7.5 Ua Bilirubin Small Ua Urobilinogen 0.2 E.U./dL 0.0-1.0 Procedures Date Code Description Status 09/24/2020 58998 Cystourethroscopy, Separate Proc edure Completed Medical Devices Description No Information Available Encounters Type Date Location Provider Dx Diagnosis Office Visit 09/24/2020 2:30p [facility] Aby Rueda MD N28.1 Cyst of kidney, acquired Z87.442 Personal history of urinary calculi Z87.440 Personal history of urinary (tract) infections N32.81 Overactive bladder Office Visit 09/05/2020 11:30a [facility]/ [facility] Aby Rueda MD R31.29 Other microscopic hematuria N39.0 Urinary tract infection, sit e not specified Z87.442 Personal history of urinary calculi Assessments Date Code Description Provider 09/24/2020 N28.1 Cyst of kidney, acquired Aby Sims MD 09/24/2020 Z87.442 Personal history of urinary calc arabella Aby Reid MD 09/24/2020 Z87.440 Personal history of urinary (tra ct) infections Aby Rueda MD 09/24/2020 N32.81 Overactive bladder Aby Rueda MD 09/05/2020 R31.29 Other microscopic hematuria Kristel Reid MD 09/05/2020 N39.0 Urinary tract infection, site no t specified Aby Rueda MD 09/05/2020 Z87.442 Personal history of urinary calc arabella Aby Reid MD 09/05/2020 R31.29 Other microscopic hematuria Niru Ruvalcaba MD Plan of Treatment No Information Available Functional Status Description No Information Available Mental Status Description No Information Available Referrals Refer to Dr Reason for Referral Status Appt Date Aby Reid M.D. Per Dylan Arroyo ([employer]) CPT Code: 01915 Description: CT ABD & PELV W/O & W CONTRAST Authorization Number: [id number] Review Date: 09/11/2020 2:49:03 PM Expiration Date: 03/10/2021 Status: Your case has been Approved. Created [facility] [address] [place] [address] [phone]
--- OUTSIDE RECORDS SUMMARY | 2020-10-22 16:22 | CCD ---
Author Author [facility] Organization [facility] Address Unknown Phone Unavailable Care Team Providers Care Block Layer Name Role Phone Donovan Jensen Unavailable PROBLEMS Type Condition ICD9-CM Code QDE78-RO Code Onset Dates Condition S tatus SNOMED Code Notes Problem History of nephrolithiasis Z87.442 Active 38000 5008 Problem Overactive Bladder 596.51 Active 782319641 Problem GERD (gastroesophageal reflux disease) K21.9 A ctive 018896354 Problem IBS (irritable bowel syndrome) K58.9 Active 1 1875333 Problem Mixed hyperlipidemia E78.2 Active 924100954 Problem Anxiety F41.9 Active 85160274 Problem Chronic sinusitis, unspecified location J32.9 Active 56547202 Problem Low blood sugar E16.2 Active 806474869 Problem Overactive bladder N32.81 Active 889376711 Problem 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 Active 672734 08 Problem Constipation, unspecified constipation type K59.00 Active 35250217 Problem 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 Active 83960818 Problem Mixed incontinence N39.46 Active 778976176 Problem 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 Active 698260686 Problem Family history of breast cancer Z80.3 Active 397095579 Problem Mixed incontinence urge and stress (male)(female) 788.33 Active 390797744 Problem 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 Act bryce 004570202 Problem Chronic fatigue R53.82 Active 11707528 Problem Post menopausal syndrome N95.1 Active 0830870 00 Problem Age-related osteoporosis without current pathological fracture M81.0 Active 28155892 ALLERGIES Allergen (clinical drug ingredient) Drug/Non Drug Allergy do cumented on EMR Reaction Allergy Type Onset Date Status oxybutynin Oxybutynin Chloride ER([facility] Code:[address]-95) Unknown Drug Allergy Active ENCOUNTERS from 1955 to 2020-08-21 Encounter Location Date Provider Diagnosis [facility] [place] [address] Jul Donovan Huizengalisa Dyspnea on exertion R06.09 and Cough R05 IMMUNIZATIONS Vaccine Route Administration Date Status Influenza (18 yrs & older) Flublok IM Intramuscular Jul 06, 2020 Administered Influenza (18 yrs & older) Flublok IM Intramuscular Aug 15, 2019 Administered Influenza (6mo & up) Fluzone IM Intramuscular May 20, 2016 Ad ministered SOCIAL HISTORY Tobacco Use: Social History Observation Description Date Details (start date - stop date) Former Smoker Sex Assigned At : Social History Observation Description Sex Assigned At Unknown Audit Question Answer Notes Total Score: 1 Interpretation: Alcohol Education Yarsani: Question Answer Notes Yarsani 25 [employer] Drug and Alcohol Question Answer Notes Total Score: 0 Interpretation: No problems reported Alcohol Screening: Question Answer Notes Did you have a drink containing alcohol in the past year? Ye s Points 2 Interpretation Negative How often did you have six or more drinks on one occas ion in the past year? Never (0 points) How many drinks did you have on a typica l day when you were drinking in the past year? 1 or 2 (0 points) How often did you have a drink containing alcohol in t he past year? Two to four times a month (2 points) BMI Care Goal Follow-Up Question Answer Notes Above Normal BMI Follow-Up Giving encouragement to exercise Tobacco Use: Question Answer Notes Are you a: former smoker How long has it been since you last smoked? > 10 years REASON FOR REFERRAL No Information VITAL SIGNS No information MEDICATIONS Medication SIG (Take, Route, Frequency, Duration) Notes Start Da te End Date Status Ct Root 550 MG Orally Dailyprn Active Omeprazole 40 MG TAKE ONE CAPSULE BY MOUTH TWICE A DAY Active Hydrocortisone 2.5 % 1 application Externally Four times a day Feb, Active Alendronate Sodium 70 MG 1 tablet 30 minutes before t he first food, beverage or medicine of the day with plain water Orally Weekly Aug, Active Topamax 100 MG 1 tablet Orally Twice a day Active Oxybutynin Chloride ER 5 MG 1 tablet Orally Once a day for 30 day(s) Active Probiotic - Orally Daily Active Osteo Bi-Flex Regular Strength 250-200 MG 1 tablet wit h a meal Orally Once a day Active Aleve 220 MG 1 tablet as needed Orally every 12 hrs Active Green Tea Orally Daily Active Maxalt 10 MG 1 tablet Orally Once a day- may repeat in 2 hours if headache persists for 30 Days Jul, Active Duloxetine HCl 30 MG 1 capsule Orally Once a day for 30 day(s) May, Active Linzess 145 MCG 1 capsule Orally Once a day for 90 day(s) Active PROCEDURES No Information RESULTS No Results REASON FOR VISIT requesting xray order MEDICAL (GENERAL) HISTORY Type Description Date Medical History Anxiety Medical History Nephrolithiasis Medical History Hypertension-previous Medical History Hematuria-unknown etiology Medical History Overactive bladder, pelvic floor dysfunc tion Medical History Constipation Medical History IBS Medical History Pituitary cyst- follows with Dr Marcus Medical History Frequent UTIs Surgical History Hysterectomy 1995 Surgical History Lumpectomy - left breast (benign) 1996 Surgical History Tumor like cyst removed from pituitary g land 2004 Surgical History Stent placement (kidney) 2010 Surgical History Removal of bone spurs from e ach shoulder & repair of torn bicep 2011 Surgical History Interstim implant 04/18/13 Surgical History Cyst removed from left foot 2013 Surgical History Cyst removed from back 2015 Surgical History Colonoscopy- 3 incomplete Surgical History Colonoscopy- Dr Webster- 2 polyps 11/2015 Surgical History BIOPSY OF THUMB MAY-2017 Surgical History Colonscopy- polyp x1 - repeat in 5 yrs Surgical History EGD- Dr Webster- normal 05/2019 Hospitalization History Surgery related Goals Section No Information Health Concerns No Information MEDICAL EQUIPMENT No Information MENTAL STATUS No Information FUNCTIONAL STATUS No Information ASSESSMENTS Encounter Date Diagnosis Assessment Notes Treatment Notes Treatm ent Clinical Notes Jul, Dyspnea on exertion (ICD-10 - R06.09) Jul, Cough (ICD-10 - R05) PLAN OF TREATMENT Medication Medication Name Sig Start Date Stop Date Maxalt 10 MG 1 tablet Orally Once a day- may repeat in 2 hours if headache persists for 30 Days Jul, Linzess 145 MCG 1 capsule Orally Once a day for 90 day(s) Treatment Notes Test Name Order Date SOCRATES CHEST 2 VIEW 2020-08-21 Next Appt Details Provider Name:Donovan Jensen, 02:00:00 PM, [address], [place], [address], Provider Name:Lucretia Scott Wong, 2020-10-29 7 09:30:00 AM, [address], [place], [address], Insurance Providers Payer Name Payer Address Payer Phone Insured Name Patient Relati onship to Insured Coverage Start Date Coverage End Date AETNA MEDICARE A[employer] INSURANCE [facility] [address] [facility] [id number] [place] self
--- OUTSIDE RECORDS SUMMARY | 2020-10-22 16:22 | CCD | Continuity of Care Document ---
Author Author Mirela REID MD Organization Unknown Address [address] [place] [address] Phone [phone] Care Team Providers Care Laundry Assistant Name Role Phone Sherin Aburto N.P. AUTM Donovan Jensen D.O. AUTM [phone] Problems Active Problems Provider Date Urinary tract infectious disease Ruth Pompa MD Onset: 12/09/2011 Angel hematuria Lashell Rogers, N.P. Onset: 12/09/2011 Disorder of kidney and/or ureter Lashell Rogers, N.P. Onsbrian t: 12/09/2011 H/O: urinary stone Lashell Rogers, N.P. Onset: 04/05/2012 Disorder of kidney and/or ureter Lashell Rogers, N.P. Onsbrian t: 04/05/2012 Social History Type Date Description Comments Sex Unknown Tobacco Use Start: Unknown End: Former Cigarette Sm oker ETOH Use Occ Alcohol Intake Allergies, Adverse [...] Available Vital Signs Date Vital Result Comment 09/05/2020 11:55am Height 64 inches 5'4" Weight 163.00 lb Weight 73.937 kg BMI (Body Mass Index) 28.0 kg/m2 BP Systolic 127 mmHg BP Diastolic 90 mmHg Heart Rate 78 /min 04/05/2012 11:50am Height 64 inches 5'4" Weight 160.00 lb Weight 72.576 kg BMI (Body Mass Index) 27.5 kg/m2 BP Systolic 138 mmHg BP Diastolic 98 mmHg Results Test Acquired Date Facility Test Result H/L Range Note BUN And Creatinine 09/05/2020 [facility] [address] [id number] [phone] BUN 14.0 mg/dL 7.0-24.0 #Creat 09/05/2020 [facility] [address] [address] [phone] Creatinine 0.74 mg/dL 0.57-1.11 eGFR - Descent 93.3 >60.0 eGFR -- Non- Descent 77.0 >60.0 230 Ua Routine 09/05/2020 [facility] REF TO DR ADDRESS ON ORDER FOR (592)- - Ua Glucose Negative Ua Protein Negative Ua Nitrite Negative Ua Leuko Negative Ua Blood Negative Ua Color Not Entered Ua Ketones Trace Ua Clarity Not Entered Ua Specific [place] 1.020 1.003-1.030 Ua PH 5.5 5.0-7.5 Ua Bilirubin Small Ua Urobilinogen 0.2 E.U./dL 0.0-1.0 Procedures Description No Information Available Medical Devices Description No Information Available Encounters Type Date Location Provider Dx Diagnosis Office Visit 09/05/2020 11:30a [facility]/ [facility] Aby Rueda MD R31.29 Other microscopic hematuria N39.0 Urinary tract infection, sit e not specified Z87.442 Personal history of urinary calculi Assessments Date Code Description Provider 09/05/2020 R31.29 Other microscopic hematuria Kristel Reid MD 09/05/2020 N39.0 Urinary tract infection, site no t specified Aby Rueda MD 09/05/2020 Z87.442 Personal history of urinary calc arabella Aby Reid MD 09/05/2020 R31.29 Other microscopic hematuria Niru Ruvalcaba MD Plan of Treatment Future Appointment(s):* 09/24/2020 2:30 pm - Aby Reid MD at [facility]/ [facility] 09/05/2020 - Aby Reid MD* R31.29 Other microscopic hematuria* New Xrays:* CT Abdomen And Pelvis W/O And W Contrast, Scheduled: 09/24/20 * N39.0 Urinary tract infection, site not specified * Z87.442 Personal history of urinary calculi Functional Status Description No Information Available Mental Status Description No Information Available Referrals Description No Information Available
--- OUTSIDE RECORDS SUMMARY | 2020-10-22 16:22 | CCD | Summary of Care ---
Author Author [facility] Organization [facility] Address Unknown Phone Unavailable Care Team Providers Care Supervisor Transcribing Operators Name Role Phone Juan RRicci cuellar Mirela HEBERT PCP Reason for Visit * Reason Comments Brain Tumor Encounter Details Care Team Description Date Type Department Jordin Marcus MD [address] [facility] [address] [place] [address] Rathke's cleft cyst (Primary Dx) 10/16/2020 Telemedicine [facility] [address] [facility] 1[address] [place] [address] Allergies No Known Allergiesdocumented as of this encounter (statuses as of 10/16/2020) Medications End Date Status Medication Sig Dispensed Refills Start Date Active omeprazole (PRILOSEC) 40 0 MG capsule 6 Active oxybutynin (DITROPAN-XL) 0 5 MG 24 hr tablet 6 Active venlafaxine (EFFEXOR-XR) 0 37.5 MG 24 hr capsule 6 Active YUVAFEM 10 MCG TABS 0 7 Active mupirocin (BACTROBAN) 2 % Use to left 22 g 3 ointment nares BID for 7 2 weeks Active Sennosides (SENNA) 8.6 MG TAKE TWO 3 11/30 TABS tablet TABLETS BY 8 MOUTH EVERY DAY FOR CONSTIPATION documented as of this encounter (statuses as of 10/16/2020) Active Problems Problem Noted Date Chronic rhinitis 01/22/2017 Rathke's cleft cyst 07/25/2014 documented as of this encounter (statuses as of 10/16/2020) Social History Date Tobacco Use Types Packs/Day Years Used Former Smoker Smokeless Tobacco: Never Used Drinks/Week oz/Week Comments Alcohol Use Yes Sex Assigned at Date Recorded Not on file documented as of this encounter Last Filed Vital Signs Not on filedocumented in this encounter Progress Notes * Jordin Marcus MD - 10/16/2020 1:00 PM EST The telephone service was performed during the state of emergency during the COV ID-19 outbreak. I have discussed this request and the patient has given their verbal consent to use Telecommunications in lieu of a [id number] visit in the office. I have spent 11-20 minutes reviewing imaging and discussing current symptoms, fi ndings and recommendations. Patient had a Rathke's cleft cyst drained in 2008. She was last seen in 02/15. She has no complaints. On my review, the new MRI is stable when compared to her last MRI scan. The last few radiology reports have indicated that the cyst is stable in size. RTC with repeat MRI in 2 years. documented in this encounter Plan of Treatment Health Maintenance Due Date Last Done Comments Hepatitis C Screening (B. 1955 [id number]) MMR Vaccines (1 of 1 - 1958 Standard series) Varicella Vaccines (1 of 1958 2 - 2-dose childhood series) DTaP,Tdap,and Td Vaccines 02/21/1964 (1 - Tdap) HIV Screening 1970 Cervical Cancer Screening 1978 5 years Breast Cancer Screening 2 2007 years Colon Cancer Screening 10 2007 yrs Zoster Vaccines (1 of 2) 2007 Influenza Vaccine 05/31/2020 Pneumococcal Vaccine: 65+ 2022 Years (1 of 1 - PPSV23) HIB Vaccines Aged Out No longer eligible based on patient's age to complete this topic Hepatitis A Vaccines Aged Out No longer eligibl e based on patient's age to complete this topic Hepatitis B Vaccines Aged Out No longer eligibl e based on patient's age to complete this topic IPV Vaccines Aged Out No longer eligible based on patient's age to complete this topic Pneumococcal Vaccine: Aged Out No longer eligib le based on patient's age to Pediatrics (0 to 5 Years) complete this topic and At-Risk Patients (6 to 64 Years) documented as of this encounter Results Not on filedocumented in this encounter Visit Diagnoses Diagnosis Rathke's cleft cyst - Primary 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
--- OUTSIDE RECORDS SUMMARY | 2020-10-22 16:22 | CCD | Continuity of Care Document ---
Author Author Mirela REID MD Organization Unknown Address [address] [place] [address] Phone [phone] Care Team Providers Care Banking Attorney Name Role Phone Sherin Aburto N.P. AUTM [phone] Donovan Jensen D.O. AUTM [phone] Problems Active Problems Provider Date Urinary tract [...] Lab REF TO ADDRESS ON ORDER FOR (697)- - Ua Glucose Negative Ua Protein Negative Ua Nitrite Positive Ua Leuko Negative Ua Blood Negative Ua Color Not Entered Ua Ketones Negative Ua Clarity Not Entered Ua Specific [place] <=1.005 1.003-1.030 Ua PH 5.5 5.0-7.5 Ua Bilirubin Negative Ua Urobilinogen 0.2 E.U./dL 0.0-1.0 BUN And Creatinine 09/05/2020 [facility] [address] [place] [address] [id number] [phone] BUN 14.0 mg/dL 7.0-24.0 #Creat 09/05/2020 [facility] [address] [address] [phone] Creatinine 0.74 mg/dL 0.57-1.11 eGFR - Descent 93.3 >60.0 eGFR -- Non- Descent 77.0 >60.0 230 Ua Routine 09/05/2020 [facility] REF TO ADDRESS ON ORDER FOR (001)- - Ua Glucose Negative Ua Protein Negative Ua Nitrite Negative Ua Leuko Negative Ua Blood Negative Ua Color Not Entered Ua Ketones Trace Ua Clarity Not Entered Ua Specific [place] 1.020 1.003-1.030 Ua PH 5.5 5.0-7.5 Ua Bilirubin Small Ua Urobilinogen 0.2 E.U./dL 0.0-1.0 Procedures Date Code Description Status 09/24/[address] Abdomen/Pelvis With W/Wo Cont rast Completed 09/24/2020 54549 Cystourethroscopy, Separate Proc edure Completed Medical Devices Description No Information Available Encounters Type Date Location Provider Dx Diagnosis Office Visit 09/24/2020 2:30p [facility]/ [facility] Aby Rueda MD N28.1 Cyst of kidney, acquired Z87.442 Personal history of urinary calculi Z87.440 Personal history of urinary (tract) infections N32.81 Overactive bladder Office Visit 09/05/2020 11:30a [facility]/ [facility] Aby Rueda MD R31.29 Other microscopic hematuria N39.0 Urinary tract infection, sit e not specified Z87.442 Personal history of urinary calculi Assessments Date Code Description Provider 09/24/2020 N28.9 Disorder of kidney and ureter, u nspecified Aby Rueda MD 09/24/2020 N28.1 Cyst of kidney, acquired Aby [...] Description No Information Available Referrals Refer to Reason for Referral Status Appt Date Aby Reid M.D. Per [employer] [facility] ([employer]) CPT Code: 73618 Description: CT ABD & PELV W/O & W CONTRAST Authorization Number: [id number] Review Date: 09/11/2020 2:49:03 PM Expiration Date: 03/10/2021 Status: Your case has been Approved. Created [facility] [address] [place] [phone]
--- OUTSIDE RECORDS SUMMARY | 2020-10-22 16:22 | CCD | Continuity of Care Document ---
Author Author Mirela REID MD Organization Unknown Address [address] [place] [address] Phone [phone] Care Team Providers Care Field Coil Winder Name Role Phone Sherin Aburto N.P. AUTM Donovan Jensen D.O. AUTM [phone] Problems Active Problems Provider Date Urinary tract [...] Note BUN And Creatinine 09/05/2020 [place] [address] [phone] BUN <pending> #Creat <pending> 230 Ua Routine 09/05/2020 [facility] REF TO DR ADDRESS ON ORDER FOR (588)- - Ua Glucose Negative Ua Protein Negative Ua Nitrite Negative Ua Leuko Negative Ua Blood Negative Ua Color Not Entered Ua Ketones Trace Ua Clarity Not Entered Ua Specific [place] 1.020 1.003-1.030 Ua PH 5.5 5.0-7.5 Ua Bilirubin Small Ua Urobilinogen 0.2 E.U./dL 0.0-1.0 Procedures Description No Information Available Medical Devices Description No Information Available Encounters Type Date Location Provider Dx Diagnosis Office Visit 09/05/2020 11:30a [facility]/ [facility] Aby Rueda MD R31.29 Other microscopic hematuria N39.0 Urinary tract infection, sit e not specified Z87.442 Personal history of urinary calculi Assessments Date Code Description Provider 09/05/2020 R31.29 Other microscopic hematuria Kristel Reid MD 09/05/2020 N39.0 Urinary tract infection, site no t specified Aby Rueda MD 09/05/2020 Z87.442 Personal history of urinary calc arabella Aby Reid MD Plan of Treatment Future Appointment(s):* 09/24/2020 2:30 pm - Aby Reid MD at [facility]/ [facility] 09/05/2020 - Aby Reid MD* R31.29 Other microscopic hematuria* New Xrays:* CT Abdomen And Pelvis W/O And W Contrast, Scheduled: 09/24/20 * N39.0 Urinary tract infection, site not specified * Z87.442 Personal history of urinary calculi Functional Status Description No Information Available Mental Status Description No Information Available Referrals Description No Information Available
--- OUTSIDE RECORDS SUMMARY | 2020-10-22 16:22 | CCD ---
Author Author [facility] Organization [facility] Address Unknown Phone Unavailable Care Team Providers Care Fire Technology Instructor Name Role Phone Donovan Jensen Unavailable PROBLEMS Type Condition ICD9-CM Code [id number] Code Onset Dates Condition S tatus W/U Status Risk SNOMED Code Notes Problem History of nephrolithiasis Z87.442 Active confirmed 458115163 Problem Overactive Bladder 596.51 Active confirmed 2 65423642 Problem GERD (gastroesophageal reflux disease) K21.9 A ctive confirmed 836919184 Problem IBS (irritable bowel syndrome) K58.9 Active confir med 30997347 Problem Mixed hyperlipidemia E78.2 Active confirmed 900271625 Problem Anxiety F41.9 Active confirmed 22253076 Problem Chronic sinusitis, unspecified location J32.9 Active confirmed 63991438 Problem Low blood sugar E16.2 Active confirmed 3028 42197 Problem Overactive bladder N32.81 Active confirmed 2 32943894 Problem 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 Active confirmed 24081885 Problem Constipation, unspecified constipation type K59.00 Active confirmed 53184722 Problem 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 Active confirmed 95363431 Problem Mixed incontinence N39.46 Active confirmed 4 83587210 Problem 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 Active confirmed 73930 6008 Problem Family history of breast cancer Z80.3 Active confi rmed 990263131 Problem Mixed incontinence urge and stress (male)(female) 788.33 Active confirmed 412470384 Problem 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 Act bryce confirmed 393068057 Problem Chronic fatigue R53.82 Active confirmed 8422 9001 Problem Post menopausal syndrome N95.1 Active confirmed 473183394 Problem Age-related osteoporosis without current pathological fracture M81.0 Active confirmed 97450395 ALLERGIES Allergen (clinical drug ingredient) Drug/Non Drug Allergy do cumented on EMR Reaction Allergy Type Onset Date Status oxybutynin Oxybutynin Chloride ER([facility] Code:[address]-48) Unknown Drug Allergy Active ENCOUNTERS from 1955 to 2020-10-05 Encounter Location Date Provider Diagnosis [facility] [address] [place] [address] Oct Donovan Jensen Daily headache R51.9 ; Anxiety F41.9 ; G ERD (gastroesophageal reflux disease) K21.9 ; IBS (irritable bowel syndrome) K58.9 ; Constipation, unspecified constipation type K59.00 ; Mixed hyperlipidemia E78.2 ; History of urinary tract infection Z87.440 ; Chronic fatigue R53.82 ; B12 deficiency E53.8 ; 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 and Difficulty breathing R06.89 IMMUNIZATIONS Vaccine Route Administration Date Status Influenza [...] Unknown Audit Question Answer Notes Total Score: 0 Interpretation: Alcohol Education Anabaptist: Question Answer Notes Anabaptist 23 Jehovah Witness Drug and Alcohol Question [...] REASON FOR REFERRAL No Information VITAL SIGNS Weight 165 lbs Oct, Height 5'3.5" in Oct, BMI 28.77 kg/m2 Oct, Heart Rate 95 /min Oct, Respiratory Rate 16 /min Oct, Temperature 97.3 degrees Fahrenheit Oct, Oximetry 99ra Oct, Blood pressure systolic 115 mm Hg Oct, Blood pressure diastolic 79 mm Hg Oct, MEDICATIONS Medication SIG (Take, Route, Frequency, Duration) Notes Start Da te End Date Status Hydrocortisone 2.5 % 1 application Externally Four times a day Feb, Active Osteo Bi-Flex Regular Strength 250-200 MG 1 tablet wit h a meal Orally Once a day Active Alendronate Sodium 70 MG 1 tablet 30 minutes before t he first food, beverage or medicine of the day with plain water Orally Weekly for 28 Active Linzess 145 MCG 1 capsule Orally Once a day for 90 day(s) Active Aleve 220 MG 1 tablet as needed Orally every 12 hrs Active Omeprazole 40 MG TAKE ONE CAPSULE BY MOUTH TWICE A DAY Active Oxybutynin Chloride ER 5 MG 1 tablet Orally Once a day for 30 day(s) Active Green Tea Orally Daily Active Topamax 100 MG 1 tablet Orally Twice a day Active Probiotic - Orally Daily Active Maxalt 10 MG 1 tablet Orally Once a day- may repeat in 2 hours if headache persists for 30 Days Active Duloxetine HCl 30 MG 1 capsule Orally Once a day for [address] Root 550 MG Orally Dailyprn Active PROCEDURES No Information RESULTS No Results REASON FOR VISIT 3 mo followup MEDICAL (GENERAL) HISTORY Type Description Date Medical [...] 2013 Surgical History Cyst removed from back 2014 Surgical History Colonoscopy- 3 incomplete Surgical History Colonoscopy- Dr Webster- 2 polyps 11/2015 Surgical History BIOPSY OF THUMB MAY-2017 Surgical History Colonscopy- polyp x1 - repeat in 5 yrs Surgical History EGD- Dr Webster- normal 05/2019 Surgical History Interstim removal- Dr Triana 08/2019 Hospitalization History Surgery related Goals Section No Information Health Concerns No Information MEDICAL EQUIPMENT No Information MENTAL STATUS No Information FUNCTIONAL STATUS No Information ASSESSMENTS Encounter Date Diagnosis Assessment Notes Treatment Notes Treatm ent Clinical Notes Oct, Daily headache (ICD-10 - R51.9) Cont topamax. She will trial maxalt, was afraid to use both. Will check on neuro referral. Pt agreeable. Oct, Anxiety (ICD-10 - F41.9) She will remain on cymbalta. Doing okay at this time. Pt agreeable. Oct, GERD (gastroesophageal reflux disease) (ICD-10 - K21.9) Cont to f/u with Dr Webster. Oct, IBS (irritable bowel syndrome) (ICD-10 - K58.9) Cont with Dr Webster. Oct, Constipation, unspecified constipation type (ICD -10 - K59.00) Currently doing okay on Pro Colostrum-LD and Linzess. Oct, Mixed hyperlipidemia (ICD-10 - E78.2) Cont to monitor risk. Pt is agreeable. Oct, History of urinary tract infection (ICD-10 - Z87 .440) Currently stable. Oct, Chronic fatigue (ICD-10 - R53.82) Likely multifactorial with some concern for mild depression. She is mostly stable. She has seen cardiology. Pt agreeable. Oct, B12 deficiency (ICD-10 - E53.8) Stable. Oct, Rathke's cleft cyst (ICD-10 - E23.6) Cont with Dr Marcus. Oct, Difficulty breathing (ICD-10 - R06.89) Will get PFTs. PLAN OF TREATMENT Medication Medication Name Sig Start Date Stop Date Maxalt 10 MG 1 tablet Orally Once a day- may repeat in 2 hours if headache persists for 30 Days Linzess 145 MCG 1 capsule Orally Once a day for 90 day(s) Treatment Notes Assessment Notes Clinical Notes Daily headache Cont topamax. She w ill trial maxalt, was afraid to use both. Will check on neuro referral. Pt agreeable. Anxiety She will remain on c ymbalta. Doing okay at this time. Pt agreeable. GERD (gastroesophageal reflux disease) C ont to f/u with Dr Webster. IBS (irritable bowel syndrome) Cont with Dr Webster. Constipation, unspecified constipation type Currently doing okay on Pro Colostrum-LD and Linzess. Mixed hyperlipidemia Cont to monitor ris k. Pt is agreeable. History of urinary tract infection Curre ntly stable. Chronic fatigue Likely multifactoria l with some concern for mild depression. She is mostly stable. She has seen cardiology. Pt agreeable. B12 deficiency Stable. Rathke's cleft cyst Cont with Dr Marcus. Difficulty breathing Will get PFTs. Treatment Notes Test Name Order Date PFT with DLCO 2020-10-02 Future Test Test Name Order Date CBC - Complete Blood Count [id number] Next Appt Details 3 Months Reason: Provider Name:Lucretia Wong, 2020-10-29 7 09:30:00 AM, [address], [place], [address], Provider Name:Donovan Jensen, 01:45:00 PM, [address], [place], [address], Insurance Providers Payer Name Payer Address Payer Phone Insured Name Patient Relati onship to Insured Coverage Start Date Coverage End Date AETNA MEDICARE AETNA [employer] INSURANCE [employer] [address] [facility] [phone] SANTOS GARCIA self
--- OUTSIDE RECORDS SUMMARY | 2020-10-22 16:22 | CCD ---
Author Author [facility] Organization [facility] Address Unknown Phone Unavailable Care Team Providers Care Loan Funder Name Role Phone Donovan Jensen Unavailable PROBLEMS Type Condition ICD9-CM Code IPJ41-IE Code Onset Dates Condition S tatus W/U Status Risk SNOMED Code Notes Problem History of nephrolithiasis Z87.442 Active confirmed 172479859 Problem Overactive Bladder 596.51 Active confirmed 2 37353159 Problem GERD (gastroesophageal reflux disease) K21.9 A ctive confirmed 970627446 Problem IBS (irritable bowel syndrome) K58.9 Active confir med 22833373 Problem Mixed hyperlipidemia E78.2 Active confirmed 142962632 Problem Anxiety F41.9 Active confirmed 33311029 Problem Chronic sinusitis, unspecified location J32.9 Active confirmed 82695960 Problem Low blood sugar E16.2 Active confirmed 3028 06157 Problem Overactive bladder N32.81 Active confirmed 2 64682034 Problem 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 Active confirmed 04010897 Problem Constipation, unspecified constipation type K59.00 Active confirmed 71140643 Problem 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 Active confirmed 83626042 Problem Mixed incontinence N39.46 Active confirmed 4 00652439 Problem 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 Active confirmed 76972 6008 Problem Family history of breast cancer Z80.3 Active confi rmed 056127682 Problem Mixed incontinence urge and stress (male)(female) 788.33 Active confirmed 357660356 Problem 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 Act bryce confirmed 596847613 Problem Chronic fatigue R53.82 Active confirmed 8422 9001 Problem Post menopausal syndrome N95.1 Active confirmed 684260539 Problem Age-related osteoporosis without current pathological fracture M81.0 Active confirmed 40445105 ALLERGIES Allergen (clinical drug ingredient) Drug/Non Drug Allergy do cumented on EMR Reaction Allergy Type Onset Date Status oxybutynin Oxybutynin Chloride ER([facility] Code:[address]-39) Unknown Drug Allergy Active ENCOUNTERS from 1955 to 2020-10-05 Encounter Location Date Provider Diagnosis [facility] [address] [place] [address] Oct Donovan Jensen IMMUNIZATIONS Vaccine Route Administration Date Status Influenza [...] Notes Total Score: 0 Interpretation: Alcohol Education Catholic: Question Answer Notes Catholic 23 Jehovah Witness Drug and Alcohol Question [...] Information RESULTS No Results REASON FOR VISIT Neuro referral MEDICAL (GENERAL) HISTORY Type Description Date Medical [...] polyps 11/2015 Surgical History BIOPSY OF THUMB MAY-2018 Surgical History Colonscopy- polyp x1 - repeat in 5 yrs Surgical History EGD- Dr Webster- normal 05/2019 Surgical History Interstim removal- Dr Triana 08/2019 Hospitalization History Surgery related Goals Section No Information Health Concerns No Information MEDICAL EQUIPMENT No Information MENTAL STATUS No Information FUNCTIONAL STATUS No Information ASSESSMENTS No Information PLAN OF TREATMENT Medication Medication Name Sig Start Date Stop Date Maxalt 10 MG 1 tablet Orally Once a day- may repeat in 2 hours if headache persists for 30 Days Linzess 145 MCG 1 capsule Orally Once a day for 90 day(s) Next Appt Details Provider Name:Lucretia Wong, 2020-10-29 7 09:30:00 AM, [address], [place], [address], Provider Name:Donovan Jensen, 01:45:00 PM, [address], [place], [address], Insurance Providers Payer Name Payer Address Payer Phone Insured Name Patient Relati onship to Insured Coverage Start Date Coverage End Date AETNA MEDICARE AETNA [employer] INSURANCE [employer] [address] [facility] [phone] S[place]OS GARCIA self
--- OUTSIDE RECORDS SUMMARY | 2020-10-22 16:22 | CCD ---
Author Author [facility] Organization [facility] Address Unknown Phone Unavailable Care Team Providers Care Director Of Content And Programming Name Role Phone Donovan Jensen Unavailable PROBLEMS Type Condition ICD9-CM Code OXW08-JN Code Onset Dates Condition S tatus SNOMED Code Notes Problem History of nephrolithiasis Z87.442 Active 34708 5008 Problem Overactive Bladder 596.51 Active 282272335 Problem GERD (gastroesophageal reflux disease) K21.9 A ctive 914437796 Problem IBS (irritable bowel syndrome) K58.9 Active 1 3050467 Problem Mixed hyperlipidemia E78.2 Active 687987752 Problem Anxiety F41.9 Active 40172358 Problem Chronic sinusitis, unspecified location J32.9 Active 86995480 Problem Low blood sugar E16.2 Active 314421305 Problem Overactive bladder N32.81 Active 456429650 Problem 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 Active 764157 08 Problem Constipation, unspecified constipation type K59.00 Active 81846273 Problem 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 Active 70188279 Problem Mixed incontinence N39.46 Active 514819773 Problem 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 Active 482480338 Problem Family history of breast cancer Z80.3 Active 510002285 Problem Mixed incontinence urge and stress (male)(female) 788.33 Active 080924657 Problem 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 Act bryce 678027717 Problem Chronic fatigue R53.82 Active 89546418 Problem Post menopausal syndrome N95.1 Active 6155353 00 Problem Age-related osteoporosis without current pathological fracture M81.0 Active 36659962 ALLERGIES Allergen (clinical drug ingredient) Drug/Non Drug Allergy do cumented on EMR Reaction Allergy Type Onset Date Status oxybutynin Oxybutynin Chloride ER([facility] Code:[address]-16) Unknown Drug Allergy Active ENCOUNTERS from 1955 to 2020-08-23 Encounter Location Date Provider Diagnosis [facility] [place] [address] Jul Donovan Mikey IMMUNIZATIONS Vaccine Route Administration Date Status Influenza [...] Notes Total Score: 1 Interpretation: Alcohol Education Anabaptism: Question Answer Notes Anabaptism 23 Jehovah Witness Drug and Alcohol Question [...] Information RESULTS No Results REASON FOR VISIT CXR results MEDICAL (GENERAL) HISTORY Type Description Date Medical [...] for 90 day(s) Next Appt Details Provider Name:Donovan Jensen, 02:00:00 PM, [address], [place], [address], Provider Name:Lucretia Wong, 2020-10-29 7 09:30:00 AM, [address], [place], [address], Insurance Providers Payer Name Payer Address Payer Phone Insured Name Patient Relati onship to Insured Coverage Start Date Coverage End Date AETNA MEDICARE AETNA [employer] INSURANCE [employer] [address] [facility] [id number] SANTOS GARCIA self
--- OUTSIDE RECORDS SUMMARY | 2020-10-22 16:22 | CCD | Continuity of Care Document ---
Author Author Mirela RUVALCABA MD Organization Unknown Address [address] [place] [address] Phone [phone] Care Team Providers Care Poultry Farmworker Name Role Phone Sherin Aburto N.P. AUTM [phone] Donovan Jensen D.O. AUTM [phone] Problems Active Problems Provider Date Urinary tract infectious disease Ruth Pompa MD Onset: 12/09/2011 Angel hematuria Lashell Rogers, N.P. Onset: 12/09/2011 Disorder of kidney and/or ureter Lashell Rogers N.PInez Onsbrian t: 12/09/2011 H/O: urinary stone Lashell Rogers, N.P. Onset: 04/05/2012 Disorder of kidney and/or ureter Lashell Rogers N.Zeina Onsbrian t: 04/05/2012 Social History Type Date [...] Note BUN And Creatinine 09/05/2020 [facility] [address] [id number] [phone] BUN 14.0 mg/dL 7.0-24.0 #Creat 09/05/[address] [facility] [address] [id number] [phone] Creatinine 0.74 mg/dL 0.57-1.11 eGFR - Descent 93.3 >60.0 eGFR -- Non- Descent 77.0 >60.0 230 Ua Routine 09/05/2020 [facility] REF TO DR ADDRESS ON ORDER FOR (946)- - Ua Glucose Negative Ua Protein Negative Ua Nitrite Negative Ua Leuko Negative Ua Blood Negative Ua Color Not Entered Ua Ketones Trace Ua Clarity Not Entered Ua Specific Mcclure 1.020 1.003-1.030 Ua PH 5.5 5.0-7.5 Ua Bilirubin Small Ua Urobilinogen 0.2 E.U./dL 0.0-1.0 Procedures Description No Information Available Medical Devices Description No Information Available Encounters Type Date Location Provider Dx Diagnosis Office Visit 09/05/2020 11:30a [facility] Aby Rueda MD R31.29 Other microscopic hematuria N39.0 Urinary tract infection, sit e not specified Z87.442 Personal history of urinary calculi Assessments Date Code Description Provider 09/05/2020 R31.29 Other microscopic hematuria Kristel Bass MD 09/05/2020 N39.0 Urinary tract infection, site no t specified Aby Rueda MD 09/05/2020 Z87.442 Personal history of urinary calc arabella Aby Bass MD 09/05/2020 R31.29 Other microscopic hematuria Niru Ruvalcaba MD Plan of Treatment Future Appointment(s):* 09/24/2020 2:30 pm - Aby Bass MD at [facility] 09/05/2020 - Aby Bass MD* R31.29 Other microscopic hematuria* New Xrays:* CT Abdomen And Pelvis W/O And W Contrast, Scheduled: 09/24/20 * N39.0 Urinary tract infection, site not specified * Z87.442 Personal history of urinary calculi Functional Status Description No Information Available Mental Status Description No Information Available Referrals Description No Information Available
--- OUTSIDE RECORDS SUMMARY | 2020-10-22 16:23 | CCD ---
Author Author [facility] Organization [facility] Address Unknown Phone Unavailable Care Team Providers Care Catering Operations Manager Name Role Phone Hammad YU DO Unavailable Unavailable HUIZENGA, D JERRY DO Unavailable Unavailable HUIZENGA, D JERRY DO Unavailable Unavailable HUIZENGA, D JERRY DO Unavailable Unavailable HUIZENGAHammad DO Unavailable Unavailable HUIZENGA D JERRY DO Unavailable Unavailable HUIZENGAHammad DO Unavailable Unavailable HUIZENGAHammad DO Unavailable Unavailable HUIZENGAHammad DO Unavailable Unavailable HUIZENGAHammad DO Unavailable Unavailable HUIZENGAHammad DO Unavailable Unavailable HUIZENGAHammad DO Unavailable Unavailable HUIZENGAHammad DO Unavailable Unavailable HUIZENGA D JERRY DO Unavailable Unavailable HUIZENGAHammad DO Unavailable Unavailable HUIZENGA D JERRY DO Unavailable Unavailable HUIZENGA D JERRY DO Unavailable Unavailable HUIZENGA D JERRY DO Unavailable Unavailable HUIZENGA D JERRY DO Unavailable Unavailable HUIZENGA D JERRY DO Unavailable Unavailable HUIZENGA Hammad EDWARDS DO Unavailable Unavailable HUIZENGA, Hammad EDWARDS DO Unavailable Unavailable HUIZENGA, Hammad EDWARDS DO Unavailable Unavailable HUIZENGA, Hammad EDWARDS DO Unavailable Unavailable HUIZENGA, Hammad EDWARDS DO Unavailable Unavailable HUIZENGA, Hammad EDWARDS DO Unavailable Unavailable HUIZENGA, Hammad EDWARDS DO Unavailable Unavailable HUIZENGA, Hammad EDWARDS DO Unavailable Unavailable HUIZENGA, Hammad EDWARDS DO Unavailable Unavailable HUIZENGA, Hammad EDWARDS DO Unavailable Unavailable HUIZENGA, Hammad EDWARDS DO Unavailable Unavailable HUIZENGA, Hammad EDWARDS DO Unavailable Unavailable HUIZENGA, Hammad EDWARDS DO Unavailable Unavailable HUIZENGA, Hammad EDWARDS DO Unavailable Unavailable HUIZENGA, Hammad EDWARDS DO Unavailable Unavailable HUIZENGA, Hammad EDWARDS DO Unavailable Unavailable HUIZENGA, Hammad EDWARDS DO Unavailable Unavailable HUIZENGA, Hammad EDWARDS DO Unavailable Unavailable HUIZENGA, Hammad EDWARDS DO Unavailable Unavailable HUIZENGA, Hammad EDWARDS DO Unavailable Unavailable HUIZENGA, Hammad EDWARDS DO Unavailable Unavailable HUIZENGA, Hammad EDWARDS DO Unavailable Unavailable HUIZENGA, Hammad EDWARDS DO Unavailable Unavailable HUIZENGA, Hammad EDWADRS DO Unavailable Unavailable HUIZENGA, Hammad EDWARDS DO Unavailable Unavailable HUIZENGA, Hammad EDWARDS DO Unavailable Unavailable HUIZENGA, Hammad EDWARDS DO Unavailable Unavailable HUIZENGA, Hammad EDWARDS DO Unavailable Unavailable HUIZENGA, Hammad EDWARDS DO Unavailable Unavailable HUIZENGA, Hammad EDWARDS DO Unavailable Unavailable HUIZENGA, Hammad EDWARDS DO Unavailable Unavailable HUIZENGA, Hammad EDWARDS DO Unavailable Unavailable HUIZENGA, Hammad EDWARDS DO Unavailable Unavailable HUIZENGA, Hammad EDWARDS DO Unavailable Unavailable HUIZENGA, Hammad EDWARDS DO Unavailable Unavailable HUIZENGA, Hammad EDWARDS DO Unavailable Unavailable HUIZENGA, Hammad EDWARDS DO Unavailable Unavailable HUIZENGA, Hammad EDWARDS DO Unavailable Unavailable HUIZENGA, Hammad EDWARDS DO Unavailable Unavailable HUIZENGA, Hammad EDWARDS DO Unavailable Unavailable HUIZENGA, Hammad EDWARDS DO Unavailable Unavailable HUIZENGA, Hammad EDWARDS DO Unavailable Unavailable HUIZENGA, Hammad EDWARDS DO Unavailable Unavailable HUIZENGA, Hammad EDWARDS DO Unavailable Unavailable HUIZENGA, Hammad EDWARDS DO Unavailable Unavailable HUIZENGA, D JERRY DO Unavailable Unavailable HUIZENGA, D JERRY DO Unavailable Unavailable HUIZENGA, D JERRY DO Unavailable Unavailable HUIZENGA, D JERRY DO Unavailable Unavailable HUIZENGA, D JERRY DO Unavailable Unavailable HUIZENGA, D JERRY DO Unavailable Unavailable HUIZENGA, D JERRY DO Unavailable Unavailable HUIZENGA, D JERRY DO Unavailable Unavailable Maxime Zuleta MD Unavailable Unavailable Maxime Zuleta MD Unavailable Unavailable Maxime Zuleta MD Unavailable Unavailable Maxime Zuleta MD Unavailable Unavailable Maxime Zuleta MD Unavailable Unavailable Maxime Zuleta MD Unavailable Unavailable Maxime Zuleta MD Unavailable Unavailable Maxime Zuleta MD Unavailable Unavailable Maxime Zuleta MD Unavailable Unavailable Maxime Zuleta MD Unavailable Unavailable Maxime Zuleta MD Unavailable Unavailable Maxime Zuleta MD Unavailable Unavailable Maxime Zuleta MD Unavailable Unavailable Maxime Zuleta MD Unavailable Unavailable Maxime Zuleta MD Unavailable Unavailable Maxime Zuleta MD Unavailable Unavailable Maxime Zuleta MD Unavailable Unavailable Maxime Zuleta MD Unavailable Unavailable Maxime Zuleta MD Unavailable Unavailable Maxime Zuleta MD Unavailable Unavailable Maxime Zuleta MD Unavailable Unavailable Maxime Zuleta MD Unavailable Unavailable Maxime Zuleta MD Unavailable Unavailable Maxime Zuleta MD Unavailable Unavailable Maxime Zuleta MD Unavailable Unavailable Maxime Zuleta MD Unavailable Unavailable Maxime Zuleta MD Unavailable Unavailable Maxime Zuleta MD Unavailable Unavailable Maxime Zuleta MD Unavailable Unavailable Maxime Zuleta MD Unavailable Unavailable Maxime Zuleta MD Unavailable Unavailable Maxime Zuleta MD Unavailable Unavailable Maxime Zuleta MD Unavailable Unavailable Maxime Zuleta MD Unavailable Unavailable Maxime Zuleta MD Unavailable Unavailable Maxime Zuleta MD Unavailable Unavailable Maxime Zuleta MD Unavailable Unavailable Maxime Zuleta MD Unavailable Unavailable Maxime Zuleta MD Unavailable Unavailable Maxime Zuleta MD Unavailable Unavailable Maxime Zuleta MD Unavailable Unavailable Maxime Zuleta MD Unavailable Unavailable Maxime Zuleta MD Unavailable Unavailable Maxime Zuleta MD Unavailable Unavailable Maxime Zuleta MD Unavailable Unavailable Maxime Zuleta MD Unavailable Unavailable Maxime Zuleta MD Unavailable Unavailable Maxime Zuleta MD Unavailable Unavailable Maxime Zuleta MD Unavailable Unavailable Maxime Zuleta MD Unavailable Unavailable Maxime Zuleta MD Unavailable Unavailable Maxime Zuleta MD Unavailable Unavailable Maxime Zuleta MD Unavailable Unavailable Maxime Zuleta MD Unavailable Unavailable Maxime Zuleta MD Unavailable Unavailable Maxime Zuleta MD Unavailable Unavailable Maxime Zuleta MD Unavailable Unavailable Maxime Zuleta MD Unavailable Unavailable VILLALBA, MARLENE OLGA DISCHARGE SPECIALIST Unavailable Unavailable VILLALBA, MARLENE OLGA DISCHARGE SPECIALIST Unavailable Unavailable VILLALBA, MARLENE OLGA DISCHARGE SPECIALIST Unavailable Unavailable VILLALBA, MARLENE OLGA DISCHARGE SPECIALIST Unavailable Unavailable VILLALBA, MARLENE OLGA DISCHARGE SPECIALIST Unavailable Unavailable VILLALBA, MARLENE OLGA DISCHARGE SPECIALIST Unavailable Unavailable VILLALBA, MARLENE OLGA DISCHARGE SPECIALIST Unavailable Unavailable VILLALBA, MARLENE OLGA DISCHARGE SPECIALIST Unavailable Unavailable VILLALBA, MARLENE OLGA DISCHARGE SPECIALIST Unavailable Unavailable VILLALBA, MARLENE OLGA DISCHARGE SPECIALIST Unavailable Unavailable VILLALBA, MARLENE OLGA DISCHARGE SPECIALIST Unavailable Unavailable VILLALBA, MARLENE OLGA DISCHARGE SPECIALIST Unavailable Unavailable VILLALBA, MARLENE OLGA DISCHARGE SPECIALIST Unavailable Unavailable VILLALBA, MARLENE OLGA DISCHARGE SPECIALIST Unavailable Unavailable VILLALBA, MARLENE OLGA DISCHARGE SPECIALIST Unavailable Unavailable VILLALBA, MARLENE OLGA DISCHARGE SPECIALIST Unavailable Unavailable VILLALBA, MARLENE OLGA DISCHARGE SPECIALIST Unavailable Unavailable VILLALBA, MARLENE OLGA DISCHARGE SPECIALIST Unavailable Unavailable VILLALBA, MARLENE OLGA DISCHARGE SPECIALIST Unavailable Unavailable VILLALBA, MARLENE OLGA DISCHARGE SPECIALIST Unavailable Unavailable VILLALBA, MARLENE OLGA DISCHARGE SPECIALIST Unavailable Unavailable VILLALBA, MARLENE OLGA DISCHARGE SPECIALIST Unavailable Unavailable VILLALBA, MARLENE OLGA DISCHARGE SPECIALIST Unavailable Unavailable VILLALBA, MARLENE OLGA DISCHARGE SPECIALIST Unavailable Unavailable VILLALBA, MARLENE OLGA DISCHARGE SPECIALIST Unavailable Unavailable VILLALBA, MARLENE OLGA DISCHARGE SPECIALIST Unavailable Unavailable VILLALBA, MARLENE OLGA DISCHARGE SPECIALIST Unavailable Unavailable VILLALBA, MARLENE OLGA DISCHARGE SPECIALIST Unavailable Unavailable VILLALBA, MARLENE OLGA DISCHARGE SPECIALIST Unavailable Unavailable VILLALBA, MARLENE OLGA DISCHARGE SPECIALIST Unavailable Unavailable VILLALBA, MARLENE OLGA DISCHARGE SPECIALIST Unavailable Unavailable VILLALBA, MARLENE OLGA DISCHARGE SPECIALIST Unavailable Unavailable VILLALBA, MARLENE OLGA DISCHARGE SPECIALIST Unavailable Unavailable VILLALBA, MARLENE OLGA DISCHARGE SPECIALIST Unavailable Unavailable VILLALBA, MARLENE OLGA DISCHARGE SPECIALIST Unavailable Unavailable VILLALBA, MARLENE OLGA DISCHARGE SPECIALIST Unavailable Unavailable VILLALBA, MARLENE OLGA DISCHARGE SPECIALIST Unavailable Unavailable VILLALBA, MARLENE OLGA DISCHARGE SPECIALIST Unavailable Unavailable VILLALBA, MARLENE OLGA DISCHARGE SPECIALIST Unavailable Unavailable VILLALBA, MARLENE OLGA DISCHARGE SPECIALIST Unavailable Unavailable VILLALBA, MARLENE OLGA DISCHARGE SPECIALIST Unavailable Unavailable VILLALBA, MARLENE OLGA DISCHARGE SPECIALIST Unavailable Unavailable VILLALBA, MARLENE OLGA DISCHARGE SPECIALIST Unavailable Unavailable VILLALBA, MARLENE OLGA DISCHARGE SPECIALIST Unavailable Unavailable VILLALBA, MARLENE OLGA DISCHARGE SPECIALIST Unavailable Unavailable VILLALBA, MARLENE OLGA DISCHARGE SPECIALIST Unavailable Unavailable VILLALBA, MARLENE OLGA DISCHARGE SPECIALIST Unavailable Unavailable VILLALBA, MARLENE OLGA DISCHARGE SPECIALIST Unavailable Unavailable VILLALBA, MARLENE OLGA DISCHARGE SPECIALIST Unavailable Unavailable VILLALBA, MARLENE OLGA DISCHARGE SPECIALIST Unavailable Unavailable Fish, B Paco RAE Unavailable Unavailable Fish, B Paco RAE Unavailable Unavailable Fish, B Paco RAE Unavailable Unavailable Fish, B Paco RAE Unavailable Unavailable Fish, B Paco RAE Unavailable Unavailable Fish, B Paco RAE Unavailable Unavailable Fish, B Paco RAE Unavailable Unavailable Fish, B Paco RAE Unavailable Unavailable Fish, B Paco RAE Unavailable Unavailable Fish, B Paco RAE Unavailable Unavailable Fish, B Paco RAE Unavailable Unavailable Fish, B Paco RAE Unavailable Unavailable Fish, B Paco RAE Unavailable Unavailable Fish, B Paco RAE Unavailable Unavailable Fish, B Paco RAE Unavailable Unavailable Fish, B Paco RAE Unavailable Unavailable Fish, B Paco RAE Unavailable Unavailable Fish, B Paco RAE Unavailable Unavailable Fish, B Paco RAE Unavailable Unavailable Fish, B Paco RAE Unavailable Unavailable Fish, B Paco RAE Unavailable Unavailable Fish, B Paco RAE Unavailable Unavailable Fish, B Paco RAE Unavailable Unavailable Fish, B Paco RAE Unavailable Unavailable Fish, B Paco RAE Unavailable Unavailable Fish, B Paco RAE Unavailable Unavailable Fish, B Paco RAE Unavailable Unavailable Fish, B Paco RAE Unavailable Unavailable Fish, B Paco RAE Unavailable Unavailable Fish, B Paco RAE Unavailable Unavailable Fish, B Paco RAE Unavailable Unavailable Fish, B Paco RAE Unavailable Unavailable Fish, B Paco RAE Unavailable Unavailable Fish, B Paco RAE Unavailable Unavailable Fish, B Paco RAE Unavailable Unavailable Fish, B Paco RAE Unavailable Unavailable Fish, B Paco RAE Unavailable Unavailable Fish, B Paco RAE Unavailable Unavailable Fish, B Paco RAE Unavailable Unavailable Fish, B Paco RAE Unavailable Unavailable Fish, B Paco RAE Unavailable Unavailable Fish, B Paco RAE Unavailable Unavailable Fish, B Paco RAE Unavailable Unavailable Fish, B Paco RAE Unavailable Unavailable Fish, B Paco RAE Unavailable Unavailable Fish, B Paco RAE Unavailable Unavailable Fish, B Paco RAE Unavailable Unavailable Fish, B Paco RAE Unavailable Unavailable Fish, B Paco RAE Unavailable Unavailable Fish, B Paco MD Unavailable Unavailable Ambika Abarca MD Unavailable Unavailable Ambika Abarca MD Unavailable Unavailable Ambika Abarca MD Unavailable Unavailable DRAZEK, I PATRICK PA Unavailable Unavailable DRAZEK, I PATRICK PA Unavailable Unavailable DRAZEK, I PATRICK PA Unavailable Unavailable DRAZEK, I PATRICK PA Unavailable Unavailable DRAZEK, I PATRICK PA Unavailable Unavailable DRAZEK, I PATRICK PA Unavailable Unavailable DRAZEK, I PATRICK PA Unavailable Unavailable DRAZEK, I PATRICK PA Unavailable Unavailable DRAZEK, I PATRICK PA Unavailable Unavailable DRAZEK, I PATRICK PA Unavailable Unavailable DRAZEK, I PATRICK PA Unavailable Unavailable DRAZEK, I PATRICK PA Unavailable Unavailable DRAZEK, I PATRICK PA Unavailable Unavailable DRAZEK, I PATRICK PA Unavailable Unavailable DRAZEK, I PATRICK PA Unavailable Unavailable DRAZEK, I PATRICK PA Unavailable Unavailable DRAZEK, I PATRICK PA Unavailable Unavailable DRAZEK, I PATRICK PA Unavailable Unavailable DRAZEK, I PATRICK PA Unavailable Unavailable DRAZEK, I PATRICK PA Unavailable Unavailable DRAZEK, I PATRICK PA Unavailable Unavailable DRAZEK, I PATRICK PA Unavailable Unavailable DRAZEK, I PATRICK PA Unavailable Unavailable DRAZEK, I PATRICK PA Unavailable Unavailable DRAZEK, I PATRICK PA Unavailable Unavailable DRAZEK, I PATRICK PA Unavailable Unavailable DRAZEK, I PATRICK PA Unavailable Unavailable DRAZEK, I PATRICK PA Unavailable Unavailable DRAZEK, I PATRICK PA Unavailable Unavailable DRAZEK, I PATRICK PA Unavailable Unavailable Hammad Maria MD Unavailable Unavailable Hammad Maria MD Unavailable Unavailable Hammad Maria MD Unavailable Unavailable Hammad Maria MD Unavailable Unavailable Hammad Maria MD Unavailable Unavailable Hammad Maria MD Unavailable Unavailable Hammad Maria MD Unavailable Unavailable Hammad Maria MD Unavailable Unavailable Hammad Maria MD Unavailable Unavailable Hammad Maria MD Unavailable Unavailable Hammad Maria MD Unavailable Unavailable Hammad Maria MD Unavailable Unavailable Hammad Maria MD Unavailable Unavailable Hammad Maria MD Unavailable Unavailable Hammad Maria MD Unavailable Unavailable Hammad Maria MD Unavailable Unavailable Hammad Maria MD Unavailable Unavailable Hammad Maria MD Unavailable Unavailable Hammad Maria MD Unavailable Unavailable Hammad Maria MD Unavailable Unavailable Hammad Maria MD Unavailable Unavailable Hammad Maria MD Unavailable Unavailable Hammad Maria MD Unavailable Unavailable Hammad Maria MD Unavailable Unavailable Hammad Maria MD Unavailable Unavailable Hammad Maria MD Unavailable Unavailable Hammad Maria MD Unavailable Unavailable Hammad Maria MD Unavailable Unavailable Hammad Maria MD Unavailable Unavailable Hammad Maria MD Unavailable Unavailable Hammad Maria MD Unavailable Unavailable Hammad Maria MD Unavailable Unavailable Hammad Maria MD Unavailable Unavailable Hammad Maria MD Unavailable Unavailable Hammad Maria MD Unavailable Unavailable Hammad Maria MD Unavailable Unavailable Hammad Maria MD Unavailable Unavailable Hammad Maria MD Unavailable Unavailable Hammad Maria MD Unavailable Unavailable Hammad Maria MD Unavailable Unavailable Hammad Maria MD Unavailable Unavailable Hammad Maria MD Unavailable Unavailable Hammad Maria MD Unavailable Unavailable Hammad Maria MD Unavailable Unavailable Hammad Maria MD Unavailable Unavailable Hammad Maria MD Unavailable Unavailable Hammad Maria MD Unavailable Unavailable Hammad Maria MD Unavailable Unavailable Hammad Maria MD Unavailable Unavailable Hammad Maria MD Unavailable Unavailable Hammad Maria MD Unavailable Unavailable Hammad Maria MD Unavailable Unavailable Hammad Maria MD Unavailable Unavailable Hammad Maria MD Unavailable Unavailable Hammad Maria MD Unavailable Unavailable Hammad Maria MD Unavailable Unavailable Hammad Maria MD Unavailable Unavailable Hammad Maria MD Unavailable Unavailable Hammad Maria MD Unavailable Unavailable Hammad Maria MD Unavailable Unavailable Hammad Maria MD Unavailable Unavailable Hammad Maria MD Unavailable Unavailable Hammad Mraia MD Unavailable Unavailable Hammad Maria MD Unavailable Unavailable Hammad Maria MD Unavailable Unavailable Hammad Maria MD Unavailable Unavailable Hammad Maria MD Unavailable Unavailable Hammad Maria MD Unavailable Unavailable Hammad Maria MD Unavailable Unavailable Hammad Maria MD Unavailable Unavailable Hammad Maria MD Unavailable Unavailable Hammad Maria MD Unavailable Unavailable EVELYN ZHU MD Unavailable Unavailable EVELYN ZHU MD Unavailable Unavailable EVELYN ZHU MD Unavailable Unavailable EVELYN ZHU MD Unavailable Unavailable EVELYN ZHU MD Unavailable Unavailable EVELYN ZHU MD Unavailable Unavailable EVELYN ZHU MD Unavailable Unavailable EVELYN ZHU MD Unavailable Unavailable MARKO, EVELYN MD Unavailable Unavailable MARKO, EVELYN MD Unavailable Unavailable MARKO, EVELYN MD Unavailable Unavailable MARKO, EVELYN MD Unavailable Unavailable MARKO, EVELYN MD Unavailable Unavailable MARKO, EVELYN MD Unavailable Unavailable MARKO, EVELYN MD Unavailable Unavailable MARKO, EVELYN MD Unavailable Unavailable MARKO, EVELYN MD Unavailable Unavailable MARKO, EVELYN MD Unavailable Unavailable MARKO, EVELYN MD Unavailable Unavailable AMRKO, EVELYN MD Unavailable Unavailable MARKO, EVELYN MD Unavailable Unavailable MARKO, EVELYN MD Unavailable Unavailable MARKO, EVELYN MD Unavailable Unavailable MARKO, EVELYN MD Unavailable Unavailable MARKO, EVELYN MD Unavailable Unavailable MARKO, EVELYN MD Unavailable Unavailable MARKO, EVELYN MD Unavailable Unavailable MARKO, EVELYN MD Unavailable Unavailable MARKO, EVELYN MD Unavailable Unavailable MARKO, EVELYN MD Unavailable Unavailable MARKO, EVELYN MD Unavailable Unavailable MARKO, EVELYN MD Unavailable Unavailable MARKO, EVELYN MD Unavailable Unavailable MARKO, EVELYN MD Unavailable Unavailable MARKO, EVELYN MD Unavailable Unavailable MARKO, EVELYN MD Unavailable Unavailable MARKO, EVELYN MD Unavailable Unavailable MARKO, EVELYN MD Unavailable Unavailable MARKO, EVELYN MD Unavailable Unavailable MARKO, EVELYN MD Unavailable Unavailable MARKO, EVELYN MD Unavailable Unavailable MARKO, EVELYN MD Unavailable Unavailable RuyAby Liang MD Unavailable Unavailable Aby Mills MD Unavailable Unavailable Aby Mills MD Unavailable Unavailable RuyAby Liang MD Unavailable Unavailable RuyAby Carter MD Unavailable Unavailable Aby Mills MD Unavailable Unavailable Aby Mills MD Unavailable Unavailable Aby Mills MD Unavailable Unavailable Aby Mills MD Unavailable Unavailable Aby Mills MD Unavailable Unavailable Aby Mills MD Unavailable Unavailable Aby Mills MD Unavailable Unavailable Aby Mills MD Unavailable Unavailable RuyAby Carter MD Unavailable Unavailable Aby Mills MD Unavailable Unavailable RuyAby Carter MD Unavailable Unavailable RuyAby Carter MD Unavailable Unavailable Ruy Rueda, Aby RAE Unavailable Unavailable Ruy Rueda, Aby RAE Unavailable Unavailable Ruy Rueda, Aby RAE Unavailable Unavailable Ruy Rueda, Aby RAE Unavailable Unavailable Ruy Rueda, Aby RAE Unavailable Unavailable Ruy Rueda, Aby RAE Unavailable Unavailable Ruy Rueda, Aby RAE Unavailable Unavailable Ruy Rueda, Aby RAE Unavailable Unavailable Ruy Rueda, Aby RAE Unavailable Unavailable Ruy Rueda, Aby MD Unavailable Unavailable Ruy Rueda, Aby MD Unavailable Unavailable Ruy Rueda, Aby RAE Unavailable Unavailable Ruy Rueda, Aby RAE Unavailable Unavailable Ruy Rueda, Aby MD Unavailable Unavailable Ruy Rueda, Aby MD Unavailable Unavailable Ruy Rueda, Aby RAE Unavailable Unavailable Ruy Rueda, Aby MD Unavailable Unavailable Ruy Rueda, Aby MD Unavailable Unavailable Ruy Rueda, Aby MD Unavailable Unavailable Ruy Rueda, Aby RAE Unavailable Unavailable Ruy Rueda, Aby RAE Unavailable Unavailable Ruy Rueda, Aby RAE Unavailable Unavailable Ruy Rueda, Aby RAE Unavailable Unavailable Ruy Rueda, Aby RAE Unavailable Unavailable Ruy Rueda, Aby RAE Unavailable Unavailable Ruy Rueda, Aby RAE Unavailable Unavailable Ruy Rueda, Aby RAE Unavailable Unavailable Ruy Rueda, Aby RAE Unavailable Unavailable Ruy Rueda, Aby RAE Unavailable Unavailable Ruy Rueda, Aby RAE Unavailable Unavailable Ruy Rueda, Aby RAE Unavailable Unavailable Ruy Rueda, Aby RAE Unavailable Unavailable Ruy Rueda, Aby RAE Unavailable Unavailable Ruy Rueda, Aby RAE Unavailable Unavailable Ruy Rueda, Aby RAE Unavailable Unavailable Ruy Rueda, Aby RAE Unavailable Unavailable Ruy Rueda, Aby RAE Unavailable Unavailable Ruy Rueda, Aby RAE Unavailable Unavailable Ruy Rueda, Aby RAE Unavailable Unavailable Ruy Rueda, Aby RAE Unavailable Unavailable Ruy Rueda, Aby RAE Unavailable Unavailable Ruy Rueda, Aby RAE Unavailable Unavailable Ruy Rueda, Aby RAE Unavailable Unavailable Ruy Rueda, Aby RAE Unavailable Unavailable Ruy Rueda, Aby RAE Unavailable Unavailable Ruy Rueda, Aby RAE Unavailable Unavailable Ruy Rueda, Aby RAE Unavailable Unavailable Ruy Rueda, Aby RAE Unavailable Unavailable Ruy Rueda, Aby RAE Unavailable Unavailable Ruy Rueda, Aby MD Unavailable Unavailable Ruy Rueda, Aby MD Unavailable Unavailable Ruy Rueda, Aby MD Unavailable Unavailable Ruy Rueda, Aby MD Unavailable Unavailable Ruy Rueda, Aby MD Unavailable Unavailable Ruy Rueda, Aby MD Unavailable Unavailable Ruy Rueda, Aby MD Unavailable Unavailable Ruy Rueda, Aby MD Unavailable Unavailable Ruy Rueda, Aby MD Unavailable Unavailable Marcus, A Jordin MD Unavailable Unavailable Marcus, A Jordin MD Unavailable Unavailable Marcus, A Jordin MD Unavailable Unavailable Marcus, A Jordin MD Unavailable Unavailable Marcus, A Jordin MD Unavailable Unavailable Marcus, A Jordin MD Unavailable Unavailable Marcus, A Jordin MD Unavailable Unavailable Marcus, A Jordin MD Unavailable Unavailable Marcus, A Jordin MD Unavailable Unavailable Marcus, A Jordin MD Unavailable Unavailable Marcus, A Jordin MD Unavailable Unavailable Marcus, A Jordin MD Unavailable Unavailable Marcus, A Jordin MD Unavailable Unavailable Marcus, A Jordin MD Unavailable Unavailable Marcus, A Jordin MD Unavailable Unavailable Marcus, A Jordin MD Unavailable Unavailable Marcus, A Jordin MD Unavailable Unavailable Marcus, A Jordin MD Unavailable Unavailable Marcus, A Jordin MD Unavailable Unavailable Marcus, A Jordin MD Unavailable Unavailable Marcus, A Jordin MD Unavailable Unavailable Marcus, A Jordin MD Unavailable Unavailable Marcus, A Jordin MD Unavailable Unavailable Marcus, A Jordin MD Unavailable Unavailable Marcus, A Jordin MD Unavailable Unavailable Marcus, A Jordin MD Unavailable Unavailable Marcus, A Jordin MD Unavailable Unavailable Marcus, A Jordin MD Unavailable Unavailable Marcus, A Jordin MD Unavailable Unavailable Marcus, A Jordin MD Unavailable Unavailable Marcus, A Jordin MD Unavailable Unavailable Marcus, A Jordin MD Unavailable Unavailable Marcus, A Jordin MD Unavailable Unavailable Marcus, A Jordin MD Unavailable Unavailable Marcus, A Jordin MD Unavailable Unavailable Marcus, A Jordin MD Unavailable Unavailable Marcus, A Jordin MD Unavailable Unavailable Marcus, A Jordin MD Unavailable Unavailable Marcus, A Jordin MD Unavailable Unavailable Marcus, A Jordin MD Unavailable Unavailable Marcus, A Jordin MD Unavailable Unavailable Marcus, A Jordin MD Unavailable Unavailable Marcus, A Jordin MD Unavailable Unavailable Marcus, A Jordin MD Unavailable Unavailable Marcus, A Jordin MD Unavailable Unavailable Marcus, A Jordin MD Unavailable Unavailable Marcus, A Jordin MD Unavailable Unavailable Marcus, A Jordin MD Unavailable Unavailable Marcus, A Jordin MD Unavailable Unavailable Marcus, A Jordin MD Unavailable Unavailable Marcus, A Jordin MD Unavailable Unavailable Marcus, A Jordin MD Unavailable Unavailable Marcus, A Jordin MD Unavailable Unavailable Marcus, A Jordin MD Unavailable Unavailable Marcus, A Jordin MD Unavailable Unavailable Marcus, A Jordin MD Unavailable Unavailable Marcus, A Jordin MD Unavailable Unavailable Marcus, A Jordin MD Unavailable Unavailable Marcus, A Jordin MD Unavailable Unavailable Marcus, A Jordin MD Unavailable Unavailable Marcus, A Jordin MD Unavailable Unavailable Marcus, A Jordin MD Unavailable Unavailable Marcus, A Jordin MD Unavailable Unavailable Marcus, A Jordin MD Unavailable Unavailable Marcus, A Jordin MD Unavailable Unavailable Marcus, A Jordin MD Unavailable Unavailable Marcus, A Jordin MD Unavailable Unavailable Marcus, A Jordin MD Unavailable Unavailable Marcus, A Jordin MD Unavailable Unavailable Marcus, A Jordin MD Unavailable Unavailable Marcus, A Jordin MD Unavailable Unavailable Marcus, A Jordin MD Unavailable Unavailable Marcus, A Jordin MD Unavailable Unavailable Marcus, A Jordin MD Unavailable Unavailable Marcus, A Jordin MD Unavailable Unavailable Marcus, A Jordin MD Unavailable Unavailable Marcus, A Jordin MD Unavailable Unavailable Marcus, A Jordin MD Unavailable Unavailable Marcus, A Jordin MD Unavailable Unavailable Marcus, A Jordin MD Unavailable Unavailable Marcus, A Jordin MD Unavailable Unavailable Marcus, A Jordin MD Unavailable Unavailable HUIZENGA, D JERRY DO Unavailable Unavailable HUIZENGA, D JERRY DO Unavailable Unavailable HUIZENGA, D JERRY DO Unavailable Unavailable HUIZENGA, D JERRY DO Unavailable Unavailable HUIZENGA, D JERRY DO Unavailable Unavailable HUIZENGA, D JERRY DO Unavailable Unavailable HUIZENGA, Hammad EDWARDS DO Unavailable Unavailable HUIZENGA, Hammad EDWARDS DO Unavailable Unavailable HUIZENGA, D JERRY DO Unavailable Unavailable HUIZENGA, D JERRY DO Unavailable Unavailable HUIZENGA, D JERRY DO Unavailable Unavailable HUIZENGA, D JERRY DO Unavailable Unavailable HUIZENGA, D JERRY DO Unavailable Unavailable HUIZENGA, D JERRY DO Unavailable Unavailable HUIZENGA, D JERRY DO Unavailable Unavailable HUIZENGA, D JERRY DO Unavailable Unavailable HUIZENGA, D JERRY DO Unavailable Unavailable HUIZENGA, D JERRY DO Unavailable Unavailable HUIZENGA, D JERRY DO Unavailable Unavailable HUIZENGA, D JERRY DO Unavailable Unavailable HUIZENGA, D JERRY DO Unavailable Unavailable HUIZENGA, D JERRY DO Unavailable Unavailable HUIZENGA, D JERRY DO Unavailable Unavailable HUIZENGA, D JERRY DO Unavailable Unavailable HUIZENGA, Hammad EDWARDS DO Unavailable Unavailable HUIZENGA, Hammad EDWARDS DO Unavailable Unavailable HUIZENGA, Hammad EDWARDS DO Unavailable Unavailable HUIZENGA, Hammad EDWARDS DO Unavailable Unavailable HUIZENGA, Hammad EDWARDS DO Unavailable Unavailable HUIZENGA, Hammad EDWARDS DO Unavailable Unavailable HUIZENGA, Hammad EDWARDS DO Unavailable Unavailable HUIZENGA, Hammad EDWARDS DO Unavailable Unavailable HUIZENGA, Hammad EDWARDS DO Unavailable Unavailable HUIZENGA, Hammad EDWARDS DO Unavailable Unavailable HUIZENGA, Hammad EDWARDS DO Unavailable Unavailable HUIZENGA, Hammad EDWARDS DO Unavailable Unavailable HUIZENGA, Hammad EDWARDS DO Unavailable Unavailable HUIZENGA, Hammad EDWARDS DO Unavailable Unavailable HUIZENGA, Hammad EDWARDS DO Unavailable Unavailable HUIZENGA, Hammad EDWARDS DO Unavailable Unavailable HUIZENGA, Hammad EDWARDS DO Unavailable Unavailable HUIZENGA, Hammad EDWARDS DO Unavailable Unavailable HUIZENGA, Hammad EDWARDS DO Unavailable Unavailable HUIZENGA, Hammad EDWARDS DO Unavailable Unavailable HUIZENGA, Hammad EDWARDS DO Unavailable Unavailable HUIZENGA, Hammad EDWARDS DO Unavailable Unavailable HUIZENGA, Hammad EDWARDS DO Unavailable Unavailable HUIZENGA, Hammad EDWARDS DO Unavailable Unavailable HUIZENGA, Hammad EDWARDS DO Unavailable Unavailable HUIZENGA, Hammda EDWARDS DO Unavailable Unavailable HUIZENGA, Hammad EDWARDS DO Unavailable Unavailable HUIZENGA, Hammad EDWARDS DO Unavailable Unavailable HUIZENGA, Hammad EDWARDS DO Unavailable Unavailable HUIZENGA, Hammad EDWARDS DO Unavailable Unavailable HUIZENGA, Hammad EDWARDS DO Unavailable Unavailable HUIZENGA, Hammad EDWARDS DO Unavailable Unavailable HUIZENGA, Hammad EDWARDS DO Unavailable Unavailable HUIZENGA, Hammad EDWARDS DO Unavailable Unavailable HUIZENGA, Hammad EDWARDS DO Unavailable Unavailable HUIZENGA, Hammad EDWARDS DO Unavailable Unavailable HUIZENGA, Hammad EDWARDS DO Unavailable Unavailable HUIZENGA, Hammad EDWARDS DO Unavailable Unavailable HUIZENGA, Hammad EDWARDS DO Unavailable Unavailable HUIZENGA, Hammad EDWARDS DO Unavailable Unavailable HUIZENGA, Hammad EDWARDS DO Unavailable Unavailable HUIZENGA, Hammad EDWARDS DO Unavailable Unavailable HUIZENGA, Hammad EDWARDS DO Unavailable Unavailable HUIZENGA, Hammad EDWARDS DO Unavailable Unavailable HUIZENGA, Hammad EDWARDS DO Unavailable Unavailable HUIZENGA, D JERRY DO Unavailable Unavailable HUIZENGA, D JERRY DO Unavailable Unavailable HUIZENGA, D JERRY DO Unavailable Unavailable HUIZENGA, D JERRY DO Unavailable Unavailable Re-disclosure Warning The records that you are about to access may contain information from federally-assisted alcohol or drug abuse programs. If such information is present, then the following federally mandated warning applies: This information has been disclosed to you from records protected by federal confidentiality rules (42 CFR part 2). The federal rules prohibit you from making any further disclosure of this information unless further disclosure is expressly permitted by the written consent of the person to whom it pertains or as otherwise permitted by 42 CFR part 2. A general authorization for the release of medical or other information is NOT sufficient for this purpose. The Federal rules restrict any use of the information to criminally investigate or prosecute any alcohol or drug abuse patient.The records that you are about to access may contain highly sensitive health information, the redisclosure of which is protected by Article 27-F of the [facility] Public Health law. If you continue you may have access to information: Regarding HIV / AIDS; Provided by facilities licensed or operated by the [facility] Office of Mental Health; or Provided by the [facility] Office for People With Developmental Disabilities. If such information is present, then the following [facility] mandated warning applies: This information has been disclosed to you from confidential records which are protected by state law. State law prohibits you from making any further disclosure of this information without the specific written consent of the person to whom it pertains, or as otherwise permitted by law. Any unauthorized further disclosure in violation of state law may result in a fine or halfway sentence or both. A general authorization for the release of medical or other information is NOT sufficient authorization for further disc losure. Allergies and Adverse Reactions Type Description Substance Reaction Status Data Source(s ) Drug Class NO KNOWN ALLERGIES NO KNOWN ALLERGIES [facility] Drug allergy Oxybutynin Chloride ER oxybutynin Unknown Active eCW1 ([facility]) Family History Family Member Name Family Member Gender Family Member Status Date o f Status Description Data Source(s) Unknown Unknown Problem MEDENT ([facility]) Encounters Encounter Providers Location Date Indications Data Source(s ) Unknown [address] [facility], [facility] [address] 10/17/2020 12:00:00 AM EST eCW1 ([facility]) Outpatient Attender: Jordin Marcus MD [id number] 10/16/2020 12:00 :00 AM EST Other disorders of pituitary gland [facility] Other disorders of pituitary gland Outpatient Attender: JERRY YU DO 10/11/2020 01:30:00 PM [facility] Outpatient [address] [facility] [address] 10/02/2020 12:00:00 AM EST eCW1 ([facility]) Unknown [address] [facility] [address] 10/02/2020 12:00:00 AM EST eCW1 ([facility]) Outpatient Attender: Aby Muller/ [facility] 09/24/2020 01:30:00 PM EST [facility] ([facility]) Outpatient Attender: Aby Muller/ [facility] 09/05/2020 10:30:00 AM EST [facility] ([facility]) Outpatient Attender: EVELYN ZHU MDReferrer: JERRY ELDER DO 08/30/2020 10:00:00 AM EST - 08/30/2020 10:00:00 AM EST [facility] Unknown [address] [facility] [address] 08/22/2020 12:00:00 AM EST eCW1 ([facility]) [place] [address] [facility] [address] 08/20/2020 12:00:00 AM EST eCW1 ([facility]) Unknown [address] [facility] [place] [address] 07/10/2020 12:00:00 AM EST eCW1 ([facility]) Outpatient [address] [facility] [place] [address] 07/06/2020 12:00:00 AM EST eCW1 ([facility]) [place] [address] [facility] [place] [address] 06/07/2020 12:00:00 AM EDT eCW1 ([facility]) Unknown [address] [facility] [address] 06/04/2020 12:00:00 AM EDT eCW1 ([facility]) Unknown [address] [facility] [address] 05/31/2020 12:00:00 AM EDT eCW1 ([facility]) [facility] [address] [facility] [address] 04/02/2020 12:00:00 AM EDT eCW1 ([facility]) Unknown [address] [facility] [address] 03/14/2020 12:00:00 AM EDT eCW1 ([facility]) Outpatient Attender: PATRICK BUENO Physical Therapy 03/13/2020 0 1:45:00 PM EDT MEDENT ([facility]) Outpatient [address] [facility] [address] 03/07/2020 12:00:00 AM EDT eCW1 ([facility]) Outpatient Attender: EVELYN ZHU MDReferrer: JERRY ELDER DO 03/06/2020 01:00:00 PM [facility] Outpatient Attender: Maxime Zuleta MDReferrer: Constantine RIVERS.CARIN-SJZeinaCARIN 2020 11:30:18 AM EDT - 2020 12:07:50 PM EDT [facility] Outpatient Attender: PATRICK BUENO Physical Therapy 02/01/2020 0 3:45:00 PM EDT MEDENT ([facility]) [facility] [address] [facility] [address] 01/31/2020 12:00:00 AM EDT eCW1 ([facility]) Outpatient Attender: Maxime RIVERS.CARIN-SJNeftali.CARIN 12/29 12:00:00 AM EDT [address] [address] 12/08/2019 12:00:00 AM EDT eCW1 ([facility]) Outpatient Attender: Jordin Marcus MD 12/06/2019 12:00:[address] [address] 11/25/2019 12:00:00 AM EDT eCW1 ([facility]) Outpatient Attender: Jordin Marcus MD 11/08/2019 12:00:00 AM [facility] Outpatient Referrer: JERRY YU DO 11/07/2019 11:30:00 AM EDT [facility] Outpatient Referrer: JERRY YU DO 11/04/2019 05:28:00 AM EST [facility] Outpatient Attender: Jordin Marcus MD 11/04/2019 12:00:00 AM [facility] Outpatient Attender: PATRICK BUENO Physical Therapy 10/21/2019 0 9:00:00 AM EST MEDENT ([facility]) OFFICE OUTPATIENT NEW 30 MINUTES Attender: Paco Abarca MD Physic al Therapy 09/30/2019 01:00:00 PM EST MEDENT ([facility]) [address] [address] 09/15/2019 12:00:00 AM EST eCW1 ([facility]) [address] [address] 09/01/2019 12:00:00 AM EST eCW1 ([facility]) Outpatient Attender: Be Maria MD 08/29/2019 06:32:00 PM [facility] Admission cancelled. Disregard status an d admitted date. Outpatient Attender: Be Maria MDAend er: OLGA VILLALBA NPAttender: JERRY SCHULTZeferrer: JERRY YU DO 08/29/2019 10:00:[address] [address] 08/26/2019 12:00:00 AM EST eCW1 ([facility]) Immunizations Vaccine Date Status Description Data Source(s) influenza, recombinant, quadrIvalent,injectable, prese rvative free 07/06/2020 03:31:00 PM EST completed eCW1 ([facility]) influenza, recombinant, quadrIvalent,injectable, prese rvative free 07/06/2020 03:31:00 PM EST completed eCW1 ([facility]) influenza, recombinant, quadrIvalent,injectable, prese rvative free 07/06/2020 03:31:00 PM EST completed eCW1 ([facility]) influenza, recombinant, quadrIvalent,injectable, prese rvative free 07/06/2020 03:31:00 PM EST completed eCW1 ([facility]) influenza, recombinant, quadrIvalent,injectable, prese rvative free 07/06/2020 03:31:00 PM EST completed eCW1 ([facility]) influenza, recombinant, quadrIvalent,injectable, prese rvative free 07/06/2020 03:31:00 PM EST completed eCW1 ([facility]) influenza, recombinant, quadrIvalent,injectable, prese rvative free 07/06/2020 03:31:00 PM EST completed eCW1 ([facility]) Medications Medication Brand Name Start Date Product Form Dose Route Admi nistrative Instructions Pharmacy Instructions Status Indications Reaction Description Data Source(s) 5 mg 10/19/2020 12:00:00 AM EST tablet extended release 24hr 30 TAKE ONE TABLET BY MOUTH EVERY DAY TAKE ONE TABLET BY MOUTH EVERY DAY SOLD: 10/20/2020 [facility] 30 mg 09/13/2020 12:00:00 AM EST capsule,delayed release (DR/EC) 30 TAKE ONE CAPSULE BY MOUTH EVERY DAY TAKE ONE CAPSULE BY MOUTH EVERY DAY SOLD: 09/15/2020 [facility] 30 mg 09/13/2020 12:00:00 AM EST capsule,delayed release (DR/EC) 30 TAKE ONE CAPSULE BY MOUTH EVERY DAY TAKE ONE CAPSULE BY MOUTH EVERY DAY SOLD: 10/20/2020 [facility] 10 mg 07/08/2020 12:00:00 AM EST tablet 10 TAKE 1 TABLET BY MOUTH ONCE A DAY MAY REPEAT IN 2 HOURS IF HEADACHE PERSISTS TAKE 1 TABLET BY MOUTH ONCE A DAY MAY REPEAT IN 2 HOURS IF HEADACHE PERSISTS SOLD: 08/17/2020 [facility] 10 mg 07/08/2020 12:00:00 AM EST tablet 10 TAKE 1 TABLET BY MOUTH ONCE A DAY MAY REPEAT IN 2 HOURS IF HEADACHE PERSISTS TAKE 1 TABLET BY MOUTH ONCE A DAY MAY REPEAT IN 2 HOURS IF HEADACHE PERSISTS SOLD: 07/13/2020 [facility] rizatriptan 10 MG Oral Tablet [Maxalt] Maxalt 10 MG Maxalt 1 0 MG 07/06/2020 12:00:00 AM EST 1.0 {tablet} active Ma xalt 10 MG eCW1 ([facility]) rizatriptan 10 MG Oral Tablet [Maxalt] Maxalt 10 MG Maxalt 1 0 MG 07/06/2020 12:00:00 AM EST 1.0 {tablet} active Ma xalt 10 MG eCW1 ([facility]) rizatriptan 10 MG Oral Tablet [Maxalt] Maxalt 10 MG Maxalt 1 0 MG 07/06/2020 12:00:00 AM EST 1.0 {tablet} active Ma xalt 10 MG eCW1 ([facility]) rizatriptan 10 MG Oral Tablet [Maxalt] Maxalt 10 MG Maxalt 1 0 MG 07/06/2020 12:00:00 AM EST 1.0 {tablet} active Ma xalt 10 MG eCW1 ([facility]) 30 mg 06/08/2020 12:00:00 AM EDT capsule,delayed release (DR/EC) 30 TAKE ONE CAPSULE BY MOUTH EVERY DAY TAKE ONE CAPSULE BY MOUTH EVERY DAY SOLD: 08/17/2020 [facility] 30 mg 06/08/2020 12:00:00 AM EDT capsule,delayed release (DR/EC) 30 TAKE ONE CAPSULE BY MOUTH EVERY DAY TAKE ONE CAPSULE BY MOUTH EVERY DAY SOLD: 07/17/2020 [facility] 30 mg 06/08/2020 12:00:00 AM EDT capsule,delayed release (DR/EC) 30 TAKE ONE CAPSULE BY MOUTH EVERY DAY TAKE ONE CAPSULE BY MOUTH EVERY DAY SOLD: 06/15/2020 [facility] duloxetine 30 MG Delayed Release Oral Capsule Duloxeti ne HCl 30 MG Duloxetine HCl 30 MG 06/07/2020 12:00:00 AM EDT 1.0 {capsule} a ctive Duloxetine HCl 30 MG eCW1 ([facility]) duloxetine 30 MG Delayed Release Oral Capsule Duloxeti ne HCl 30 MG Duloxetine HCl 30 MG 06/07/2020 12:00:00 AM EDT 1.0 {capsule} a ctive Duloxetine HCl 30 MG eCW1 ([facility]) duloxetine 30 MG Delayed Release Oral Capsule Duloxeti ne HCl 30 MG Duloxetine HCl 30 MG 06/07/2020 12:00:00 AM EDT 1.0 {capsule} a ctive Duloxetine HCl 30 MG eCW1 ([facility]) duloxetine 30 MG Delayed Release Oral Capsule Duloxeti ne HCl 30 MG Duloxetine HCl 30 MG 06/07/2020 12:00:00 AM EDT 1.0 {capsule} a ctive Duloxetine HCl 30 MG eCW1 ([facility]) duloxetine 30 MG Delayed Release Oral Capsule Duloxeti ne HCl 30 MG Duloxetine HCl 30 MG 06/07/2020 12:00:00 AM EDT 1.0 {capsule} a ctive Duloxetine HCl 30 MG eCW1 ([facility]) Sulfamethoxazole 800 MG / Trimethoprim 160 MG Oral Tab let 800-160 mg SULFAMETHOXAZOLE/TRIMETHOPRIM 05/18/2020 12:00:00 AM EDT tablet 14 TAKE ONE TABLET BY MOUTH TWICE A DAY TAKE ONE TABLET BY MOUTH TWICE A DAY SOLD: 05/18/2020 [facility] 5 mg 05/17/2020 12:00:00 AM EDT tablet extended release 24hr 30 TAKE ONE TABLET BY MOUTH ONCE DAILY TAKE ONE TABLET BY MOUTH ONCE DAILY SOLD: 09/15/2020 [facility] 5 mg 05/17/2020 12:00:00 AM EDT tablet extended release 24hr 30 TAKE ONE TABLET BY MOUTH ONCE DAILY TAKE ONE TABLET BY MOUTH ONCE DAILY SOLD: 07/17/2020 [facility] 5 mg 05/17/2020 12:00:00 AM EDT tablet extended release 24hr 30 TAKE ONE TABLET BY MOUTH ONCE DAILY TAKE ONE TABLET BY MOUTH ONCE DAILY SOLD: 08/17/2020 [facility] 5 mg 05/17/2020 12:00:00 AM EDT tablet extended release 24hr 30 TAKE ONE TABLET BY MOUTH ONCE DAILY TAKE ONE TABLET BY MOUTH ONCE DAILY SOLD: 06/15/2020 [facility] 5 mg 05/17/2020 12:00:00 AM EDT tablet extended release 24hr 30 TAKE ONE TABLET BY MOUTH ONCE DAILY TAKE ONE TABLET BY MOUTH ONCE DAILY SOLD: 05/18/2020 [facility] 2.5 % 05/09/2020 12:00:00 AM EDT cream 28 APPLY TO AFFECTED AREA(S) FOUR TIMES A DAY APPLY TO AFFECTED AREA(S) FOUR TIMES A DAY SOLD: 05/18/2020 [facility] 30 mg 04/03/2020 12:00:00 AM EDT capsule,delayed release (DR/EC) 30 TAKE ONE CAPSULE BY MOUTH EVERY DAY TAKE ONE CAPSULE BY MOUTH EVERY DAY SOLD: 05/07/2020 [facility] 30 mg 04/03/2020 12:00:00 AM EDT capsule,delayed release (DR/EC) 30 TAKE ONE CAPSULE BY MOUTH EVERY DAY TAKE ONE CAPSULE BY MOUTH EVERY DAY SOLD: 04/10/2020 [facility] Hydrocortisone 25 MG/ML Topical Cream Hydrocortisone 2.5 % H ydrocortisone 2.5 % 03/07/2020 12:00:00 AM EDT 1.0 {application} act bryce Hydrocortisone 2.5 % eCW1 ([facility]) Hydrocortisone 25 MG/ML Topical Cream Hydrocortisone 2.5 % H ydrocortisone 2.5 % 03/07/2020 12:00:00 AM EDT 1.0 {application} act bryce Hydrocortisone 2.5 % eCW1 ([facility]) Hydrocortisone 25 MG/ML Topical Cream Hydrocortisone 2.5 % H ydrocortisone 2.5 % 03/07/2020 12:00:00 AM EDT 1.0 {application} act bryce Hydrocortisone 2.5 % eCW1 ([facility]) Hydrocortisone 25 MG/ML Topical Cream Hydrocortisone 2.5 % H ydrocortisone 2.5 % 03/07/2020 12:00:00 AM EDT 1.0 {application} act bryce Hydrocortisone 2.5 % eCW1 ([facility]) 2.5 % 03/07/2020 12:00:00 AM EDT cream 28 APPLY TO AFFECTED AREA(S) FOUR TIMES A DAY APPLY TO AFFECTED AREA(S) FOUR TIMES A DAY SOLD: 03/07/2020 [facility] Hydrocortisone 25 MG/ML Topical Cream Hydrocortisone 2.5 % H ydrocortisone 2.5 % 03/07/2020 12:00:00 AM EDT 1.0 {application} act bryce Hydrocortisone 2.5 % eCW1 ([facility]) Hydrocortisone 25 MG/ML Topical Cream Hydrocortisone 2.5 % H ydrocortisone 2.5 % 03/07/2020 12:00:00 AM EDT 1.0 {application} act bryce Hydrocortisone 2.5 % eCW1 ([facility]) 2.5 % 03/07/2020 12:00:00 AM EDT cream 28 APPLY TO AFFECTED AREA(S) FOUR TIMES A DAY APPLY TO AFFECTED AREA(S) FOUR TIMES A DAY SOLD: 04/10/2020 [facility] Hydrocortisone 25 MG/ML Topical Cream Hydrocortisone 2.5 % H ydrocortisone 2.5 % 03/07/2020 12:00:00 AM EDT 1.0 {application} act bryce Hydrocortisone 2.5 % eCW1 ([facility]) Hydrocortisone 25 MG/ML Topical Cream Hydrocortisone 2.5 % H ydrocortisone 2.5 % 03/07/2020 12:00:00 AM EDT 1.0 {application} act bryce Hydrocortisone 2.5 % eCW1 ([facility]) Hydrocortisone 25 MG/ML Topical Cream Hydrocortisone 2.5 % H ydrocortisone 2.5 % 03/07/2020 12:00:00 AM EDT 1.0 {application} act bryce Hydrocortisone 2.5 % eCW1 ([facility]) Hydrocortisone 25 MG/ML Topical Cream Hydrocortisone 2.5 % H ydrocortisone 2.5 % 03/07/2020 12:00:00 AM EDT 1.0 {application} act bryce Hydrocortisone 2.5 % eCW1 ([facility]) Hydrocortisone 25 MG/ML Topical Cream Hydrocortisone 2.5 % H ydrocortisone 2.5 % 03/07/2020 12:00:00 AM EDT 1.0 {application} act bryce Hydrocortisone 2.5 % eCW1 ([facility]) Hydrocortisone 25 MG/ML Topical Cream Hydrocortisone 2.5 % H ydrocortisone 2.5 % 03/07/2020 12:00:00 AM EDT 1.0 {application} act bryce Hydrocortisone 2.5 % eCW1 ([facility]) Medrol Medrol 02/01/2020 12:00:00 AM EDT active MEDENT ([facility]) 4 mg 02/01/2020 12:00:00 AM EDT tablets,dose pack 21 USE DIRECTED ON PACKAGE USE DIRECTED ON PACKAGE SOLD: 02/02/2020 [facility] 150 mg 01/31/2020 12:00:00 AM EDT capsule,extended releas e 24hr 90 TAKE ONE CAPSULE BY MOUTH EVERY DAY WITH FOOD TAKE ONE CAPSULE BY MOUTH EVERY DAY WITH FOOD SOLD: 02/02/2020 [facility] 150 mg 01/31/2020 12:00:00 AM EDT capsule,extended releas e 24hr 90 TAKE ONE CAPSULE BY MOUTH EVERY DAY WITH FOOD TAKE ONE CAPSULE BY MOUTH EVERY DAY WITH FOOD SOLD: 05/07/2020 [facility] 50 mg 01/09/2020 12:00:00 AM EDT tablet extended release 24 hr 90 TAKE ONE TABLET BY MOUTH EVERY DAY TAKE ONE TABLET BY MOUTH EVERY DAY SOLD: 01/14/2020 [facility] 50 mg 01/09/2020 12:00:00 AM EDT tablet extended release 24 hr 90 TAKE ONE TABLET BY MOUTH EVERY DAY TAKE ONE TABLET BY MOUTH EVERY DAY SOLD: 04/17/2020 [facility] 100 mg 10/10/2019 12:00:00 AM EST tablet 180 TAKE ONE TABLET BY MOUTH TWICE A DAY TAKE ONE TABLET BY MOUTH TWICE A DAY SOLD: 08/25/2020 [facility] 100 mg 10/10/2019 12:00:00 AM EST tablet 180 TAKE ONE TABLET BY MOUTH TWICE A DAY TAKE ONE TABLET BY MOUTH TWICE A DAY SOLD: 10/16/2019 [facility] 100 mg 10/10/2019 12:00:00 AM EST tablet 180 TAKE ONE TABLET BY MOUTH TWICE A DAY TAKE ONE TABLET BY MOUTH TWICE A DAY SOLD: 05/27/2020 [facility] 37.5 mg 10/08/2019 12:00:00 AM EST capsule,extended releas e 24hr 90 TAKE ONE CAPSULE BY MOUTH EVERY DAY WITH FOOD (TOTAL DAILY DOSE 112.5MG) TAKE ONE CAPSULE BY MOUTH EVERY DAY WITH FOOD (TOTAL DAILY DOSE 112.5MG) SOLD: 10/16/2019 [facility] 75 mg 10/08/2019 12:00:00 AM EST capsule,extended releas e 24hr 90 TAKE ONE CAPSULE BY MOUTH EVERY DAY WITH FOOD (TOTAL DAILY DOSE IS 112.5MG) TAKE ONE CAPSULE BY MOUTH EVERY DAY WITH FOOD (TOTAL DAILY DOSE IS 112.5MG) SOLD: 10/16/2019 [facility] 40 mg 10/08/2019 12:00:00 AM EST capsule,delayed release (DR/EC) 180 TAKE ONE CAPSULE BY MOUTH TWICE A DAY TAKE ONE CAPSULE BY MOUTH TWICE A DAY SOLD: 10/16/2019 [facility] 800 mg 09/24/2019 12:00:00 AM EST tablet 15 TAKE ONE TABLET BY MOUTH THREE TIMES A DAY NEEDED FOR PAIN FOR 5 DAYS TAKE ONE TABLET BY MOUTH THREE TIMES A DAY NEEDED FOR PAIN FOR 5 DAYS SOLD: 09/24/2019 [facility] 10 mg 09/24/2019 12:00:00 AM EST tablet 21 TAKE ONE TABLET BY MOUTH THREE TIMES A DAY NEEDED FOR 7 DAYS TAKE ONE TABLET BY MOUTH THREE TIMES A D AY NEEDED FOR 7 DAYS SOLD: 09/24/2019 [facility] 70 mg 09/15/2019 12:00:00 AM EST tablet 4 TAKE 1 TABLET BY MOUTH 30 MINUTES BEFORE THE FIRST FOOD, BEVERAGE OR MEDICINE OF THE DAY WITH PLAIN WATER ONCE WEEKLY TAKE 1 TABLET BY MOUTH 30 MINUTES BEFORE THE FIRST FOOD, BEVERAGE OR MEDICINE OF THE DAY WITH PLAIN WATER ONCE WEEKLY SOLD: 09/16/2019 [facility] Alendronic acid 70 MG Oral Tablet Alendronate Sodium 7 0 MG Alendronate Sodium 70 MG 09/15/2019 12:00:00 AM EST active Alendronate Sodium 70 MG eCW1 ([facility]) Alendronic acid 70 MG Oral Tablet Alendronate Sodium 7 0 MG Alendronate Sodium 70 MG 09/15/2019 12:00:00 AM EST active 1 tablet 30 minutes before the first food, beverage or medicine of the day with plain water eCW1 ([facility]) Alendronic acid 70 MG Oral Tablet Alendronate Sodium 7 0 MG Alendronate Sodium 70 MG 09/15/2019 12:00:00 AM EST active Alendronate Sodium 70 MG eCW1 ([facility]) Alendronic acid 70 MG Oral Tablet Alendronate Sodium 7 0 MG Alendronate Sodium 70 MG 09/15/2019 12:00:00 AM EST active 1 tablet 30 minutes before the first food, beverage or medicine of the day with plain water eCW1 ([facility]) 70 mg 09/15/2019 12:00:00 AM EST tablet 4 TAKE 1 TABLET BY MOUTH 30 MINUTES BEFORE THE FIRST FOOD, BEVERAGE OR MEDICINE OF THE DAY WITH PLAIN WATER ONCE WEEKLY TAKE 1 TABLET BY MOUTH 30 MINUTES BEFORE THE FIRST FOOD, BEVERAGE OR MEDICINE OF THE DAY WITH PLAIN WATER ONCE WEEKLY SOLD: 10/16/2019 [facility] Alendronic acid 70 MG Oral Tablet Alendronate Sodium 7 0 MG Alendronate Sodium 70 MG 09/15/2019 12:00:00 AM EST active Alendronate Sodium 70 MG eCW1 ([facility]) 70 mg 09/15/2019 12:00:00 AM EST tablet 4 TAKE 1 TABLET BY MOUTH 30 MINUTES BEFORE THE FIRST FOOD, BEVERAGE OR MEDICINE OF THE DAY WITH PLAIN WATER ONCE WEEKLY TAKE 1 TABLET BY MOUTH 30 MINUTES BEFORE THE FIRST FOOD, BEVERAGE OR MEDICINE OF THE DAY WITH PLAIN WATER ONCE WEEKLY SOLD: 06/28/2020 [facility] 70 mg 09/15/2019 12:00:00 AM EST tablet 4 TAKE 1 TABLET BY MOUTH 30 MINUTES BEFORE THE FIRST FOOD, BEVERAGE OR MEDICINE OF THE DAY WITH PLAIN WATER ONCE WEEKLY TAKE 1 TABLET BY MOUTH 30 MINUTES BEFORE THE FIRST FOOD, BEVERAGE OR MEDICINE OF THE DAY WITH PLAIN WATER ONCE WEEKLY SOLD: 07/24/2020 [facility] 70 mg 09/15/2019 12:00:00 AM EST tablet 4 TAKE 1 TABLET BY MOUTH 30 MINUTES BEFORE THE FIRST FOOD, BEVERAGE OR MEDICINE OF THE DAY WITH PLAIN WATER ONCE WEEKLY TAKE 1 TABLET BY MOUTH 30 MINUTES BEFORE THE FIRST FOOD, BEVERAGE OR MEDICINE OF THE DAY WITH PLAIN WATER ONCE WEEKLY SOLD: 11/23/2019 [facility] 70 mg 09/15/2019 12:00:00 AM EST tablet 4 TAKE 1 TABLET BY MOUTH 30 MINUTES BEFORE THE FIRST FOOD, BEVERAGE OR MEDICINE OF THE DAY WITH PLAIN WATER ONCE WEEKLY TAKE 1 TABLET BY MOUTH 30 MINUTES BEFORE THE FIRST FOOD, BEVERAGE OR MEDICINE OF THE DAY WITH PLAIN WATER ONCE WEEKLY SOLD: 05/27/2020 [facility] 70 mg 09/15/2019 12:00:00 AM EST tablet 4 TAKE 1 TABLET BY MOUTH 30 MINUTES BEFORE THE FIRST FOOD, BEVERAGE OR MEDICINE OF THE DAY WITH PLAIN WATER ONCE WEEKLY TAKE 1 TABLET BY MOUTH 30 MINUTES BEFORE THE FIRST FOOD, BEVERAGE OR MEDICINE OF THE DAY WITH PLAIN WATER ONCE WEEKLY SOLD: 04/28/2020 [facility] 70 mg 09/15/2019 12:00:00 AM EST tablet 4 TAKE 1 TABLET BY MOUTH 30 MINUTES BEFORE THE FIRST FOOD, BEVERAGE OR MEDICINE OF THE DAY WITH PLAIN WATER ONCE WEEKLY TAKE 1 TABLET BY MOUTH 30 MINUTES BEFORE THE FIRST FOOD, BEVERAGE OR MEDICINE OF THE DAY WITH PLAIN WATER ONCE WEEKLY SOLD: 08/25/2020 [facility] 70 mg 09/15/2019 12:00:00 AM EST tablet 4 TAKE 1 TABLET BY MOUTH 30 MINUTES BEFORE THE FIRST FOOD, BEVERAGE OR MEDICINE OF THE DAY WITH PLAIN WATER ONCE WEEKLY TAKE 1 TABLET BY MOUTH 30 MINUTES BEFORE THE FIRST FOOD, BEVERAGE OR MEDICINE OF THE DAY WITH PLAIN WATER ONCE WEEKLY SOLD: 03/31/2020 [facility] Alendronic acid 70 MG Oral Tablet Alendronate Sodium 7 0 MG Alendronate Sodium 70 MG 09/15/2019 12:00:00 AM EST active Alendronate Sodium 70 MG eCW1 ([facility]) Alendronic acid 70 MG Oral Tablet Alendronate Sodium 7 0 MG Alendronate Sodium 70 MG 09/15/2019 12:00:00 AM EST active Alendronate Sodium 70 MG eCW1 ([facility]) Alendronic acid 70 MG Oral Tablet Alendronate Sodium 7 0 MG Alendronate Sodium 70 MG 09/15/2019 12:00:00 AM EST active Alendronate Sodium 70 MG eCW1 ([facility]) 70 mg 09/15/2019 12:00:00 AM EST tablet 4 TAKE 1 TABLET BY MOUTH 30 MINUTES BEFORE THE FIRST FOOD, BEVERAGE OR MEDICINE OF THE DAY WITH PLAIN WATER ONCE WEEKLY TAKE 1 TABLET BY MOUTH 30 MINUTES BEFORE THE FIRST FOOD, BEVERAGE OR MEDICINE OF THE DAY WITH PLAIN WATER ONCE WEEKLY SOLD: 03/05/2020 [facility] Alendronic acid 70 MG Oral Tablet Alendronate Sodium 7 0 MG Alendronate Sodium 70 MG 09/15/2019 12:00:00 AM EST active Alendronate Sodium 70 MG eCW1 ([facility]) 70 mg 09/15/2019 12:00:00 AM EST tablet 4 TAKE 1 TABLET BY MOUTH 30 MINUTES BEFORE THE FIRST FOOD, BEVERAGE OR MEDICINE OF THE DAY WITH PLAIN WATER ONCE WEEKLY TAKE 1 TABLET BY MOUTH 30 MINUTES BEFORE THE FIRST FOOD, BEVERAGE OR MEDICINE OF THE DAY WITH PLAIN WATER ONCE WEEKLY SOLD: 02/02/2020 [facility] Alendronic acid 70 MG Oral Tablet Alendronate Sodium 7 0 MG Alendronate Sodium 70 MG 09/15/2019 12:00:00 AM EST active Alendronate Sodium 70 MG eCW1 ([facility]) Alendronic acid 70 MG Oral Tablet Alendronate Sodium 7 0 MG Alendronate Sodium 70 MG 09/15/2019 12:00:00 AM EST active Alendronate Sodium 70 MG eCW1 ([facility]) 70 mg 09/15/2019 12:00:00 AM EST tablet 4 TAKE 1 TABLET BY MOUTH 30 MINUTES BEFORE THE FIRST FOOD, BEVERAGE OR MEDICINE OF THE DAY WITH PLAIN WATER ONCE WEEKLY TAKE 1 TABLET BY MOUTH 30 MINUTES BEFORE THE FIRST FOOD, BEVERAGE OR MEDICINE OF THE DAY WITH PLAIN WATER ONCE WEEKLY SOLD: 01/05/2020 [facility] 250 mg 08/28/2019 12:00:00 AM EST tablet 6 TAKE TWO TABLETS BY MOUTH AT ONCE ON THE FIRST DAY THEN TAKE ONE DAILY THEREAFTER TAKE TWO TABLETS BY MOUTH AT ONCE ON THE FIRST DAY THEN TAKE ONE DAILY THEREAFTER SOLD: 08/28/2019 [facility] 145 mcg 08/11/2019 12:00:00 AM EST capsule 30 TAKE ONE CAPSULE BY MOUTH EVERY MORNING ON AN EMPTY STOMACH TAKE ONE CAPSULE BY MOUTH EVERY MORNING ON AN EMPTY STOMACH SOLD: 10/16/2019 [facility] 145 mcg 08/11/2019 12:00:00 AM EST capsule 30 TAKE ONE CAPSULE BY MOUTH EVERY MORNING ON AN EMPTY STOMACH TAKE ONE CAPSULE BY MOUTH EVERY MORNING ON AN EMPTY STOMACH SOLD: 09/16/2019 [facility] 50 mg 04/11/2019 12:00:00 AM EDT tablet extended release 24 hr 90 TAKE ONE TABLET BY MOUTH EVERY DAY TAKE ONE TABLET BY MOUTH EVERY DAY SOLD: 10/16/2019 [facility] Insurance Providers Payer name Policy type / Coverage type Policy ID Covered libertarian ID Covered libertarian's relationship to lópez Policy López Plan Information AETNA MEDICARE MEBRWWZQ SP MEBRW WZQ AETNA HEALTH INC MEBRWWZQ S MEB RWWZQ AETNA MEDICARE COMPLETE G MEBRWWZQ Self MEBRWWZQ VINI [place] W [id number] Empl [id number] AETNA MEDICARE MEBRWWZQ SP MEBRW WZQ AETNA MEDICARE COMPLETE G MEBRWWZQ Self MEBRWWZQ AETNA MEDICARE O MEBRWWZQ S MEBRW WZQ AETNA HEALTH INC MEBRWWZQ S MEB RWWZQ AETNA MEDICARE MEBRWWZQ SP MEBRW WZQ AETNA MEDICARE MEBRWWZQ Roberta MEBRW WZQ AETNA MEDICARE MEBRWWZQ SP MEBRW WZQ AETNA MEDICARE MEBRWWZQ SP MEBRW WZQ AETNA HEALTH INC MEBRWWZQ S MEB RWWZQ AETNA MEDICARE COMPLETE G MEBRWWZQ Self MEBRWWZQ AETNA MEDICARE MEBRWWZQ S MEBRW WZQ AETNA MEDICARE MEBRWWZQ SP MEBRW WZQ ANS-Medicare Part B [id number] ANS-Medicare Part B [id number] [facility] [id number] S [id number] [facility] [id number] S [id number] ESIS CLAIMS [id number] S [id number] BCBS EXCELLUS [id number] SPO RWB [id number] BCBS EXCELLUS [id number] S RWB [id number] BCBS HMO BLUE [id number] S YNE [id number] [facility] [id number] S [id number] [facility] MEDICAID [id number] SPO [id number] BC EMPIRE [id number] SPO [id number] BCBS EMPIRE [id number] S [id number] SECURE HORIZONS [id number] S [id number] AETNA MEBRWWZQ S MEBRWWZQ ANS-Medicare Part B [id number] ANSI-Medicare Part B [id number] ANSI-Medicare Part B [id number] ANSI-Medicare Part B [id number] Aetna Commercial [id number] Self [id number] ANSI-Medicare Part B [id number] ANSI-Medicare Part B [id number] AETNA MEBRWWZQ S MEBRWWZQ ANSI-Medicare Part B [id number] ANSI-Medicare Part B [id number] Medicare [facility] Medicare Primary [id number] Self [id number] Aetna Medigap Part B [id number] Self MEBRW WZQ BC/BS [place] Medigap Part B [id number] Self [id number] Excellus BCBS Medigap Part B [id number] Self [id number] [facility] Medicare Commercial [id number] Self [id number] ANSI-Medicare Part B [id number] ANSI-Medicare Part B [id number] MEDICARE [id number] SP [id number] ANSI-Commercial [id number] ANSI-Medicare Part B [id number] ANSI-Commercial [id number]-5776-[id number]-714z-2435-[id number] ANSI-Medicare Part B [id number] ANSI-Medicare Part B [id number] ANSI-Commercial [id number]-vj37-3a96-[id number] ANSI-Medicare Part B [id number] ANSI-Commercial m50po4w3-89a8-33nb-b8vr-c00d6qo44ymx j62gh6g4-34g8-62ds-y8jg-c71y8pt74nbj MEDICARE COMPLETE [id number] SP [id number] ANSI-Medicare Part B [id number] ANSI-Commercial l745bo5p-47gm-8812-ee56-u82ax5yj470l s478eg9t-09nh-1310-nz54-b09le5xk908k MEDICARE COMPLETE [id number] SP [id number] ANSI-Commercial [id number]-[id number]-[id number] ANSI-Medicare Part B [id number] UNITED HE[employer]CARE MEDICARE [id number] S [id number] ANSI-Commercial [id number]-4okd-0pq6-wfjf-[id number] [id number]-9urt-1kh4-qxwk-[id number] ANSI-Medicare Part B [id number] [facility] [place] [facility] [place] [id number] S [id number] ANSI-Commercial [id number]-r7z3-7j56-63up-[id number] [id number]-o1f5-9c50-92mv-[id number] ANSI-Medicare Part B [id number]-[id number] ANSI-Medicare Part B [id number]-[id number]-4tpl-[id number] ANSI-Commercial [id number]-l8b6-1329-jy30-o714403430nq a940b869-u3p9-2103-uy59-[id number] ANSI-Commercial 66l9371e-252l-0knk-s805-257f7l8899cf 40n0894b-445r-5syp-r452-413v9b0203sl ANSI-Medicare Part B [id number]-[id number] ANSI-Commercial 5c2838fd-9nqg-1k7f-zbzc-y12rrk175o46 [id number]-7xer-2s1w-dats-b89ggu719q56 ANSI-Medicare Part B [id number] MEDICARE COMPLETE [id number] ANSI-Commercial [id number]-[id number] [id number]-0053-15e9-9y62054xsfx0 ANSI-Medicare Part B [id number]-[id number]-[id number] ANSI-Medicare Part B [id number] [id number]-08e4-r2se-[id number] ANSI-Commercial a558i409-kd58-608b-h355-d62835s799b6 o456g891-nx94-373y-b094-l57179v057r2 ANSI-Medicare Part B [id number]-kq30wj0lo9u5 ANSI-Commercial 6erh03w9-i729-1408-hrk1-u1g1481d7wi2 5luw67f7-z838-8504-xjb1-v6v6995h8di1 ANSI-Medicare Part B [id number]-0o58-5vov-4zy3-2mq237d1k3ji ANSI-Commercial [id number]-e221-7321-[id number] 68b137it-e601-5864-a752-03k032468e86 ANSI-Medicare Part B [id number]-e96t-[id number] ANSI-Commercial or37y480-3070-7451-ps23-1854mw2293nq ay88p796-1341-5991-ff04-6055wq8860jh ANSI-Commercial e6k0f981-1i57-72m6-jt44-30nr0x2zjf13 b2z4f039-8e90-50o3-gc33-50fu3s2mjx37 ANSI-Medicare Part B [id number] [id number]-k6y5-7wv4-7k3y-s38e352c8w27 ANSI-Medicare Part B [id number]-w7j4-70r2-8y8j-ux7665a0w9d8 ANSI-Commercial [id number]-5pig-qd91yx1677w8 a6195u44-54l1-864v-1hlo-iu31uv5139q1 ANSI-Commercial 30w3m96b-8781-1529-hk20-566u672fe9yx 55p5a92u-2320-9936-zg47-618d234th5zi ANSI-Medicare Part B [id number]-ca82295z9qut UHC UNITED MEDICARE COMPLETE G [id number] Self [id number] [facility] Medicare Medigap Part B [id number] Self [id number] BS iFACETS Commercial [id number] Self [id number] BC/BS [place] Medigap Part B [id number] Self [id number] Excell[employer] BCBS Medigap Part B [id number] Self [id number] United[employer]care Medicare Commercial [id number] Self [id number] BLUE CROSS [id number] S [id number] SECURE HORIZONS [id number] S [id number] BC/BS [place] Medigap Part B [id number] Self [id number] Excell[employer] BCBS Medigap Part B [id number] Self [id number] BC/BS [place] Medigap Part B [id number] Self [id number] Excell[employer] BCBS Medigap Part B [id number] Self [id number] BC/BS [place] Medigap Part B [id number] Self [id number] Excellus BCBS Medigap Part B [id number] Self [id number] EXCELLUS C [id number] Self [id number] BC/BS [place] Medigap Part B Self Excellus BCBS Health Maintenance Organization (HMO) Self MEDICARE - [place] MCR [id number] S [id number] EXCELLUS BCBS B [id number] S TNY [id number] BCBS [place] WATN PPO 302/307 [id number] SP [id number] BS [place] Medigap Part B Family Dependent BS [place] Medigap Part B Self BS [place] Medigap Part B Family Dependent BS [place] Medigap Part B Self BS [place] Medigap Part B BS [place] Medigap Part B Self BS [place] Medigap Part B BS [place] Commercial Self BCBS [place] WATN PPO 302/307 [id number] SP [id number] [place] [id number] SP [id number] DEST[place] [id number] HU2 [id number] BCBS OF [place] BC [id number] S YNE [id number] BCBS GENERIC C [id number] Unkn [id number] BLUE CARD C [id number] Spouse [id number] DESTINEY CARE BEVERLY HMO [id number] S [id number] [place] CARE BEVERLY HMO [id number] S [id number] DESTINEY [id number] HU2 [id number] BS [place] Medigap Part B Family Dependent BS [place] Commercial Self BLUE CROSS [id number] HUS [id number] SELF PAY UNAVAILABLE [facility]NAVAILA [facility] O UNAVAILABLE C UNAVAILABLE BLUE CROSS [id number] S [id number] BCBS [place] 305/805 [id number] HU2 [id number] BLUE CROSS [id number] S [id number] BCBS OF [place] BC [id number] SPO [place]NY [id number] EXCELLUS BCBS P [id number] S [place] [id number] EXCELLUS BCBS P [id number] S RWB [id number] 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 [id number] SP [id number] [place]IS [place] CLAIMS [id number] SP [id number] OTHER WORKERS COMPENSATION [id number] SP [id number] BCBS EXCELLUS BC [id number] SPO RWB [id number] VINI [place]IS [place] WC W [id number] Empl [id number] EXCELLUS BCBS P [id number] S RWB [id number] EXCELLUS BCBS P [id number] S RWB [id number] BCBS [place] 303/803 [id number] HU2 [id number] WORKERS COMPENSATION GENERIC W [id number] Empl [id number] BCBS [place] WATN PPO 302/307 [id number] SP [id number] SELF PAY SP UNAVAILABLE UNAVAILA BLE BCBS EMPIRE [facility] 303/803 [id number] HU2 [id number] BCBS EMPIRE [facility] 303/803 [id number] SP [id number] ESIS CLAIMS WC [id number] S [id number] EXCELLUS BCBS P [id number] S RWB [id number] BCBS EMPIRE [facility] 303/803 [id number] HU2 [id number] BCBS EMPIRE [facility] 303/803 [id number] HU2 [id number] BCBS EMPIRE [facility] 303/803 [id number] SP [id number] Problems, Conditions, and Diagnoses Code Display Name Description Problem Type Effective Dates Data Source(s) E23.6 [id number] Pituitary cyst Problem 12/08/2019 12:00:00 A M EDT [facility] ([facility]) E23.6 [id number] Rathke's cleft cyst Problem 12/08/2019 12:00 :00 AM EDT [facility] ([facility]) E23.6 [id number] Rathke's cleft cyst Problem 12/08/2019 12:00 :00 AM EDT [facility] ([facility]) M81.0 [id number] Age-related osteoporosis without current pathological fracture Problem 09/15/2019 12:00:00 AM EST [facility] ([facility]) M81.0 [id number] Age-related osteoporosis without current pathological fracture Problem 09/15/2019 12:00:00 AM EST [facility] ([facility]) R06.89 Other abnormalities of breathing OTHER ABNORMALI TIES OF BREATHING Diagnosis 10/11/2020 04:21:00 PM [facility] Z12.31 Encounter for screening mammogram for ma lignant neoplasm of breast ENCNTR SCREEN MAMMOGRAM FOR MALIGNANT NEOPLASM OF BREAST Diagnosis 10:00:00 AM [facility] R92.2 Inconclusive mammogram INCONCLUSIVE MAMMOGRAM Diagnosi s 03/06/2020 01:00:00 PM [facility] R06.09 Other forms of dyspnea Other forms of dyspnea Diagnosi s 2020 11:30:18 AM EDT [facility] N95.1 Menopausal and female climacteric states MENOPAUSAL AND FEMALE CLIMACTERIC STATES Diagnosis 08/29/2019 10:00:00 AM [facility] Z78.0 Asymptomatic menopausal state ASYMPTOMATIC MENOPAUSAL STATE Diagnosis 08/29/2019 10:00:00 AM [facility] M85.88 Other specified disorders of bone densit y and structure, other site OTH DISRD OF BONE DENSITY AND STRUCTURE, OTHER SITE Diagnosis 2018 10:00:00 AM [facility] M85.80 Other specified disorders of bone density and structure, unspecified site OTH DISRD OF BONE DENSITY AND STRUCTURE, UNSPECIFIED SITE Di agnosis 08/29/2019 10:00:00 AM [facility] Surgeries/Procedures Procedure Description Date Indications Data Source(s) CYSTOURETHROSCOPY 09/24/2020 12:00:00 AM EST [facility] ([facility] CT ABDOMEN & PELVIS W/O CONTRST 1/> BODY REGIONS 09/24 12:00:00 AM EST [facility] ([facility]) Immunization: Flublok Quadrivalent (18 years & older) 0.5mL IM (Influenza) 07/06/2020 12:00:00 AM EST eCW1 ([facility]) PHYSICIAN TELEPHONE EVALUATION 11-20 MIN 12/08/2019 12 :00:00 AM EDT eCW1 ([facility]) RADEX SPINE LUMBOSACRAL MINIMUM 4 VIEWS 09/30/2019 12: 00:00 AM EST [facility] ([facility]) X-Ray Hips Bilateral With Pelvis 3-4 Views 09/30/2019 12:00:00 AM EST [facility] ([facility]) REVJ/RMVL PERIPHERAL NEUROSTIMULATOR ELECTRODE 020 12:00:00 AM EST [facility] ([facility]) REVISION/RMVL PERIPHERAL/GASTRIC NPGR 09/08/2019 12:00 :00 AM EST [facility] ([facility]) Results ID Date Data Source [id number] 10/16/2020 11:57:17 AM EST [facility] Name Value Range Interpretation Code Description Data Katty rce(s) Supporting Document(s) Progress Note [facility] [id number] lbm [file] [id number]= ID Date Data Source [id number] 09/24/2020 02:22:00 PM EST [facility] Name Value Range Interpretation Code Description Data Katty rce(s) Supporting Document(s) Protein [Presence] in Urine by Test strip Laboratory test result [facility] ([facility]) Glucose [Presence] in Urine Laboratory test result [facility] ([facility]) [facility]a Leuko Laboratory test result [facility] ([facility]) Blood [Presence] in Urine by Visual Laboratory test result [facility] ([facility]) Ua Nitrite Laboratory test result [facility] ([facility]) Ketones [Presence] in Urine by Test strip Laboratory test result [facility] ([facility] [place]) Color of Urine Laboratory test result [facility] ([facility]) pH of Urine by Test strip 5.5 5.0-7.5 [facility] ([facility]) Clarity of Urine Laboratory test result [facility] ([facility]) Ua Specific Eek Laboratory test result 1.003-1.030 [facility] ([facility]) Urobilinogen [Mass/volume] in Urine by Test strip 0.2 E.U./dL 0.0-1.0 [facility] ([facility]) Bilirubin.total [Presence] in Urine by Test strip Laboratory test res ult [facility] ([facility]) ID Date Data Source [id number] 09/05/2020 12:05:00 PM EST [facility]) Name Value Range Interpretation Code Description Data Katty rce(s) Supporting Document(s) Creatinine [Mass/volume] in Serum or Plasma 0.74 mg/dL 0.57-1.11 [facility] ([employer] [facility]) eGFR - Descent 93.3 ME DENT ([employer] [facility]) eGFR -- Non- Descent 77.0 [facility] ([employer]) ID Date Data Source [id number] 09/05/2020 12:05:00 PM EST [facility] ([facility] [employer]) Name Value Range Interpretation Code Description Data Katty rce(s) Supporting Document(s) Creatinine [Mass/volume] in Serum or Plasma Laboratory test result [facility] ([employer] [facility]) Urea nitrogen [Mass/volume] in Serum or Plasma 14.0 mg/dL 7.0-24.0 [facility] ([employer]) ID Date Data Source [id number] 09/05/2020 11:40:00 AM EST [facility] ([facility] [employer]) Name Value Range Interpretation Code Description Data Katty rce(s) Supporting Document(s) Ua Nitrite Laboratory test result ME DENT ([employer] [facility]) Protein [Presence] in Urine by Test strip Laboratory test result [facility] ([employer] [facility]) Glucose [Presence] in Urine Laboratory test result [facility] ([employer] [facility]) Ua Leuko Laboratory test result ME [facility] ([employer] [facility]) Color of Urine Laboratory test result [facility] ([employer] [employer] [facility] [place]) Blood [Presence] in Urine by Visual Laboratory test result [facility] ([employer] [facility]) Ua Specific Eek 1.020 1.003-1.030 MEDE NT ([employer] [facility]) Clarity of Urine Laboratory test result [facility] ([employer] [facility]) Ketones [Presence] in Urine by Test strip Laboratory test result [facility] ([employer] [facility]) pH of Urine by Test strip 5.5 5.0-7.5 [facility] ([employer] [facility]) Bilirubin.total [Presence] in Urine by Test strip Laboratory test res ult [facility] ([employer] [facility]) Urobilinogen [Mass/volume] in Urine by Test strip 0.2 E.U./dL 0.0-1.0 [facility] ([employer] [facility]) ID Date Data Source [id number] 09/02/2020 05:50:00 PM EST [facility] DATE OF EXAMINATION: 08/30/2020 9:52 EST MAMMO SCREEN BILAT WITH CAD HISTORY: Screening Your patient meets NCCN testing criteria and is already in her high- riskprogram. Her new risk score for this year is 21%. Comparison is made to prior study dated 08/29/2019. 2-D bilateral digital mammogram in the CC and MLO planes were performed withsupplemental 3-D tomosynthesis of both breasts. The images were analyzed through the latest version of the [employer] computer aideddiagnosis system. The patient states that her last clinical breast examination was March. Craniocaudal and oblique lateral views of the breasts were obtained. Thebreasts are extremely dense, which lowers the sensitivity of mammography. Supplemental screening MRI or Ultrasound should be considered.. There is nodominant mass, suspicious clustered calcification, or architectural distortion. IMPRESSION: There is overall no significant interval change. Given the markedly denseglandular tissue and high risk score of 21% screening breast MR or ultrasound isencouraged. BIRAD 2 - Benign Findings, Routine Yearly Mammographic Follow-up recommended. 10-15% of cancers are not identified by mammography. This usually occurs whenthe mass is of the same radiographic density as the surrounding breast tissue,emphasizing the importance of breast self examination (BSE) and physicalexamination. A normal mammogram should not delay biopsy if a suspicious mass orabnormal findings are present upon physical examination. Electronically signed in [id number] by: Shaylee Alan M.D. 09/02/2020 17:44 EST Name Value Range Interpretation Code Description Data Katty rce(s) Supporting Document(s) ID Date Data Source UA URINALYSIS 05/31/2020 03:06:16 AM EDT eCW1 ([facility]) Name Value Range Interpretation Code Description Data Katty rce(s) Supporting Document(s) Laboratory studies (set) UA URINALYS IS eCW1 ([facility]) ID Date Data Source [id number] 03/06/2020 01:44:00 PM EDT [facility] DATE OF EXAMINATION: 03/06/2020 13:00 EDT BREAST UNILATERAL COMPLETE ULTRASOUND LEFT BREAST HISTORY: Dense breasts Real-time ultrasound imaging was performed utilizing B-mode/ervin scale and colorDoppler imaging where applicable. Ultrasound evaluation of the breast was performed, revealing no solid or cysticmasses. No large calcifications can be identified. Normal-appearing glandulartissue is noted. IMPRESSION: Normal breast ultrasound. It should be emphasized that this examination does not entirely exclude subtlebreast pathology. BIRAD CATEGORY 1 - NEGATIVE, ROUTINE YEARLY FOLLOW-UP. Electronically signed in [id number] by: Shaylee Alan M.D. 03/06/2020 13:37 EDT Name Value Range Interpretation Code Description Data Katty rce(s) Supporting Document(s) ID Date Data Source [id number] 03/06/2020 01:43:00 PM EDT [facility] DATE OF EXAMINATION: 03/06/2020 13:00 EDT BREAST UNILATERAL COMPLETE ULTRASOUND RIGHT BREAST HISTORY: Dense breasts Real-time ultrasound imaging was performed utilizing B-mode/ervin scale and colorDoppler imaging where applicable. Ultrasound evaluation of the breast was performed, revealing no solid or cysticmasses. No large calcifications can be identified. Normal-appearing glandulartissue is noted. IMPRESSION: Normal breast ultrasound. It should be emphasized that this examination does not entirely exclude subtlebreast pathology. BIRAD CATEGORY 1 - NEGATIVE, ROUTINE YEARLY FOLLOW-UP. Electronically signed in [id number] by: Shaylee Alan M.D. 03/06/2020 13:37 EDT Name Value Range Interpretation Code Description Data Katty rce(s) Supporting Document(s) ID Date Data Source [id number] 02/28/2020 12:52:00 PM EDT [facility] ([facility]) Name Value Range Interpretation Code Description Data Katty rce(s) Supporting Document(s) Creatinine For GFR 0.81 mg/dL 0.55-1.30 [facility] ([facility]) Glomerular Filtration Rate Laboratory test result [facility] ([facility]) <content>Units are mL/min/1.73 m2</content>
<content></content>
<content>Chronic Kidney Disease Staging per NKF:</content>
<content></content>
<content>Stage I & II GFR >=60 Normal to Mildly Decreased</content>
<content>Stage III GFR 30- 59 Moderately Decreased</content>
<content>Stage IV GFR 15-29 Severely Decreased</content>
<content>Stage V GFR <15 Very Little GFR Left</content>
<content>ESRD GFR <15 on [employer]</content>
<content></content> ID Date Data Source [id number] 02/28/2020 12:52:00 PM EDT [facility] ([facility]) Name Value Range Interpretation Code Description Data Katty rce(s) Supporting Document(s) Urea nitrogen [Mass/volume] in Serum or Plasma 10 mg/dL 7-18 [facility] ([facility]) ID Date Data Source [id number] 2020 07:47:51 PM EDT [facility] Name Value Range Interpretation Code Description Data Katty rce(s) Supporting Document(s) &PDF [facility] [id number] [file] [id number] ID Date Data Source [id number] 08/29/2019 01:23:00 PM EST [facility] DATE OF EXAMINATION: 08/29/2019 9:57 EST MAMMO SCREEN BILAT WITH CAD HISTORY: Screening Your patient meets NCCN testing criteria and is already in her high- riskprogram. Her new risk score for this year is 21%. Comparison is made to prior study dated 08/16/2018. 2-D bilateral digital mammogram in the CC and MLO planes were performed withsupplemental 3-D tomosynthesis of both breasts. The images were analyzed through the latest version of the [place] computer aideddiagnosis system. The patient states that her last clinical breast examination was not provided. Craniocaudal and oblique lateral views of the breasts were obtained. Thebreasts are composed of dense glandular tissue. There is no dominant mass,suspicious clustered calcification, or architectural distortion. IMPRESSION: No mammographic evidence of malignancy. Given the presence of dense glandulartissue and high risk score of 21% high risk clinical assessment and screeningbreast MRI is encouraged. BIRAD 2 - Benign Findings, Routine Yearly Mammographic Follow-up recommended. Furthermore, in patients with dense glandular tissue, supplemental imagingmodalities should be considered. 10-15% of cancers are not identified by mammography. This usually occurs whenthe mass is of the same radiographic density as the surrounding breast tissue,emphasizing the importance of breast self examination (BSE) and physicalexamination. A normal mammogram should not delay biopsy if a suspicious mass orabnormal findings are present upon physical examination. Electronically signed in [id number] by: Shaylee Alan M.D. 08/29/2019 13:18 EST Name Value Range Interpretation Code Description Data Katty rce(s) Supporting Document(s) Procedure Social History Code Duration Value Status Description Data Source(s ) Smoking 10/02/2020 12:00:00 AM EST Former Smoker completed Former Smoker eCW1 ([facility]) Smoking 10/02/2020 12:00:00 AM EST Former Smoker completed Former Smoker eCW1 ([facility]) Smoking 10/02/2020 12:00:00 AM EST Former Smoker completed Former Smoker eCW1 ([facility]) Smoking 09/20/2020 12:00:00 AM EST Former Cigarette Smoker com pleted Former Cigarette Smoker [facility] ([facility]) Smoking 07/06/2020 12:00:00 AM EST Former Smoker completed Former Smoker eCW1 ([facility]) Smoking 07/06/2020 12:00:00 AM EST Former Smoker completed Former Smoker eCW1 ([facility]) Smoking 07/06/2020 12:00:00 AM EST Former Smoker completed Former Smoker eCW1 ([facility]) Smoking 07/06/2020 12:00:00 AM EST Former Smoker completed Former Smoker eCW1 ([facility]) Smoking 03/07/2020 12:00:00 AM EDT Former Smoker completed Former Smoker eCW1 ([facility]) Smoking 03/07/2020 12:00:00 AM EDT Former Smoker completed Former Smoker eCW1 ([facility]) Smoking 03/07/2020 12:00:00 AM EDT Former Smoker completed Former Smoker eCW1 ([facility]) Smoking 03/07/2020 12:00:00 AM EDT Former Smoker completed Former Smoker eCW1 ([facility]) Smoking 03/07/2020 12:00:00 AM EDT Former Smoker completed Former Smoker eCW1 ([facility]) Vital Signs ID Date Data Source UNK Name Value Range Interpretation Code Description Data Source(s) Diastolic blood pressure 79 mm[Hg] 79 mm[Hg] eCW1 ([facility]) Systolic blood pressure 115 mm[Hg] 115 mm[Hg] e CW1 ([facility]) Body temperature 97.3 [degF] 97.3 [degF] eCW1 ( [facility]) Respiratory rate 16 /min 16 /min eCW1 ([facility]) Heart rate 95 /min 95 /min eCW1 ([facility]) Body mass index (BMI) [Ratio] 28.77 kg/m2 28.77 kg/m2 eCW1 ([facility]) Body height [in_i] eCW1 ([facility]) Body weight 165 [lb_av] 165 [lb_av] eCW1 ([facility]) Body temperature 97.0 [degF] 97.0 [degF] [facility] ([facility]) Heart rate 78 /min 78 /min [facility] Diastolic blood pressure 90 mm[Hg] 90 mm[Hg] [facility] ([facility]) Systolic blood pressure 127 mm[Hg] 127 mm[Hg] M EDENT ([facility]) Body mass index (BMI) [Ratio] 28.0 kg/m2 28.0 k g/m2 [facility] ([facility]) Body weight 73.937 kg 73.937 kg [facility] ([facility] Body weight 163.00 [lb_av] 163.00 [lb_av] MEDEN T ([facility]) Body height 64 [in_i] 64 [in_i] [facility] 5'4" Diastolic blood pressure 71 mm[Hg] 71 mm[Hg] eCW1 ([facility]) Systolic blood pressure 120 mm[Hg] 120 mm[Hg] e CW1 ([facility]) Body temperature 97.8 [degF] 97.8 [degF] eCW1 ( [facility]) Respiratory rate 18 /min 18 /min eCW1 ([facility]) Heart rate 93 /min 93 /min eCW1 ([facility]) Body mass index (BMI) [Ratio] 28.07 kg/m2 28.07 kg/m2 eCW1 ([facility]) Body height [in_i] eCW1 ([facility]) Body weight 161 [lb_av] 161 [lb_av] eCW1 ([facility]) Diastolic blood pressure 84 mm[Hg] 84 mm[Hg] eCW1 ([facility]) Systolic blood pressure 129 mm[Hg] 129 mm[Hg] e CW1 ([facility]) Body temperature 96.8 [degF] 96.8 [degF] eCW1 ( [facility]) Respiratory rate 18 /min 18 /min eCW1 ([facility]) Heart rate 77 /min 77 /min eCW1 ([facility]) Body mass index (BMI) [Ratio] 27.37 kg/m2 27.37 kg/m2 eCW1 ([facility]) Body height [in_i] eCW1 ([facility]) Body weight 157 [lb_av] 157 [lb_av] eCW1 ([facility]) Body mass index (BMI) [Ratio] 27.9 kg/m2 27.9 k g/m2 [facility] ([facility]) Body weight 156.25 [lb_av] 156.25 [lb_av] MEDEN T ([facility]) Body height 62.75 [in_i] 62.75 [in_i] [facility] ([facility]) 5'2.75" Body temperature 97.9 [degF] 97.9 [degF] [facility] ([facility]) Diastolic blood pressure 66 mm[Hg] 66 mm[Hg] [facility] ([facility]) Systolic blood pressure 114 mm[Hg] 114 mm[Hg] M EDENT ([facility]) Patient Treatment Plan of Care Planned Activity Planned Date Details Description Data Source (s) rizatriptan 10 MG Oral Tablet [Maxalt] 07/06/2020 12:00:00 AM EST eCW1 ([facility]) rizatriptan 10 MG Oral Tablet [Maxalt] 07/06/2020 12:00:00 AM EST eCW1 ([facility]) rizatriptan 10 MG Oral Tablet [Maxalt] 07/06/2020 12:00:00 AM EST eCW1 ([facility]) rizatriptan 10 MG Oral Tablet [Maxalt] 07/06/2020 12:00:00 AM EST eCW1 ([facility]) duloxetine 30 MG Delayed Release Oral Capsule 06/07/2020 12:00:00 A M EDT eCW1 ([facility]) Hydrocortisone 25 MG/ML Topical Cream 03/07/2020 12:00:00 AM EDT eCW1 ([facility]) Hydrocortisone 25 MG/ML Topical Cream 03/07/2020 12:00:00 AM EDT eCW1 ([facility]) Hydrocortisone 25 MG/ML Topical Cream 03/07/2020 12:00:00 AM EDT eCW1 ([facility]) Hydrocortisone 25 MG/ML Topical Cream 03/07/2020 12:00:00 AM EDT eCW1 ([facility]) Hydrocortisone 25 MG/ML Topical Cream 03/07/2020 12:00:00 AM EDT eCW1 ([facility]) Alendronic acid 70 MG Oral Tablet 09/15/2019 12:00:00 AM EST eCW1 ([facility]) Alendronic acid 70 MG Oral Tablet 09/15/2019 12:00:00 AM EST eCW1 ([facility]) Alendronic acid 70 MG Oral Tablet 09/15/2019 12:00:00 AM EST eCW1 ([facility]) Alendronic acid 70 MG Oral Tablet 09/15/2019 12:00:00 AM EST eCW1 ([facility]) Alendronic acid 70 MG Oral Tablet 09/15/2019 12:00:00 AM EST eCW1 ([facility]) Alendronic acid 70 MG Oral Tablet 09/15/2019 12:00:00 AM EST eCW1 ([facility])
--- NOTE | 2020-10-22 17:09 | REP ---
INDICATION: DYSPNEA/COUGH COMPARISON: 08/22/2020. TECHNIQUE: PA/Lateral FINDINGS: Lungs: Clear, no infiltrate. Heart: Normal in size. Mediastinum: Mediastinal silhouette unremarkable. Pleural angles: Unremarkable.. Bones and soft tissues: Unremarkable. IMPRESSION: No acute pulmonary disease. <Electronically signed by Mikel Thakkar > 10/22/20 [id number]
[2020-10-22 17:37] LABS: BASO % 0.6 % (0.0-1.0); EOS # 0.1 10^3/uL (0.0-0.5); EOS % 1.6 % (0.0-3.0); HEMATOCRIT 41.5 % (36.0-47.0); HEMOGLOBIN 13.6 g/dl (12.0-15.5); LYMPH # 1.8 10^3/uL (1.5-5.0); LYMPH % 25.8 % (24.0-44.0); MEAN CORPUSCULAR HEMOGLOBIN 29.4 pg (27.0-33.0); MEAN CORPUSCULAR HGB CONC 32.8 g/dl (32.0-36.5); MEAN CORPUSCULAR VOLUME 89.6 fl (80.0-96.0); MONO # 0.5 10^3/uL (0.0-0.8); MONO % 7.5 % (2.0-8.0); NEUTROPHILS # 4.4 10^3/uL (1.5-8.5); NEUTROPHILS % 64.2 % (36.0-66.0); PLATELET COUNT, AUTOMATED 252 10^3/uL (150-450); RED BLOOD COUNT 4.63 10^6/uL (4.00-5.40); WHITE BLOOD COUNT 6.9 10^3/uL (4.0-10.0)
--- OUTSIDE RECORDS SUMMARY | 2020-10-22 17:39 | CCD ---
Author Author [facility] Organization [facility] Address Unknown Phone Unavailable Care Team Providers Care Bass String Winder Name Role Phone Hammad YU DO Unavailable [...] Zuleta MD Unavailable Unavailable VILLALBA, MARLENE OLGA SALES CORRESPONDENT Unavailable Unavailable VILLALBA, MARLENE OLGA SALES CORRESPONDENT Unavailable Unavailable VILLALBA, MARLENE OLGA SALES CORRESPONDENT Unavailable Unavailable VILLALBA, MARLENE OLGA SALES CORRESPONDENT Unavailable Unavailable VILLALBA, MARLENE OLGA SALES CORRESPONDENT Unavailable Unavailable VILLALBA, MARLENE OLGA SALES CORRESPONDENT Unavailable Unavailable VILLALBA, MARLENE OLGA SALES CORRESPONDENT Unavailable Unavailable VILLALBA, MARLENE OLGA SALES CORRESPONDENT Unavailable Unavailable VILLALBA, MARLENE OLGA SALES CORRESPONDENT Unavailable Unavailable VILLALBA, MARLENE OLGA SALES CORRESPONDENT Unavailable Unavailable VILLALBA, MARLENE OLGA SALES CORRESPONDENT Unavailable Unavailable VILLALBA, MARLENE OLGA SALES CORRESPONDENT Unavailable Unavailable VILLALBA, MARLENE OLGA SALES CORRESPONDENT Unavailable Unavailable VILLALBA, MARLENE OLGA SALES CORRESPONDENT Unavailable Unavailable VILLALBA, MARLENE OLGA SALES CORRESPONDENT Unavailable Unavailable VILLALBA, MARLENE OLGA SALES CORRESPONDENT Unavailable Unavailable VILLALBA, MARLENE OLGA SALES CORRESPONDENT Unavailable Unavailable VILLALBA, MARLENE OLGA SALES CORRESPONDENT Unavailable Unavailable VILLALBA, MARLENE OLGA SALES CORRESPONDENT Unavailable Unavailable VILLALBA, MARLENE OLGA SALES CORRESPONDENT Unavailable Unavailable VILLALBA, MARLENE OLGA SALES CORRESPONDENT Unavailable Unavailable VILLALBA, MARLENE OLGA SALES CORRESPONDENT Unavailable Unavailable VILLALBA, MARLENE OLGA SALES CORRESPONDENT Unavailable Unavailable VILLALBA, MARLENE OLGA SALES CORRESPONDENT Unavailable Unavailable VILLALBA, MARLENE OLGA SALES CORRESPONDENT Unavailable Unavailable VILLALBA, MARLENE OLGA SALES CORRESPONDENT Unavailable Unavailable VILLALBA, MARLENE OLGA SALES CORRESPONDENT Unavailable Unavailable VILLALBA, MARLENE OLGA SALES CORRESPONDENT Unavailable Unavailable VILLALBA, MARLENE OLGA SALES CORRESPONDENT Unavailable Unavailable VILLALBA, MARLENE OLGA SALES CORRESPONDENT Unavailable Unavailable VILLALBA, MARLENE OLGA SALES CORRESPONDENT Unavailable Unavailable VILLALBA, MARLENE OLGA SALES CORRESPONDENT Unavailable Unavailable VILLALBA, MARLENE OLGA SALES CORRESPONDENT Unavailable Unavailable VILLALBA, MARLENE OLGA SALES CORRESPONDENT Unavailable Unavailable VILLALBA, MARLENE OLGA SALES CORRESPONDENT Unavailable Unavailable VILLALBA, MARLENE OLGA SALES CORRESPONDENT Unavailable Unavailable VILLALBA, MARLENE OLGA SALES CORRESPONDENT Unavailable Unavailable VILLALBA, MARLENE OLGA SALES CORRESPONDENT Unavailable Unavailable VILLALBA, MARLENE OLGA SALES CORRESPONDENT Unavailable Unavailable VILLALBA, MARLENE OLGA SALES CORRESPONDENT Unavailable Unavailable VILLALBA, MARLENE OLGA SALES CORRESPONDENT Unavailable Unavailable VILLALBA, MARLENE OLGA SALES CORRESPONDENT Unavailable Unavailable VILLALBA, MARLENE OLGA SALES CORRESPONDENT Unavailable Unavailable VILLALBA, MARLENE LOGA SALES CORRESPONDENT Unavailable Unavailable VILLALBA, MARLENE OLGA SALES CORRESPONDENT Unavailable Unavailable VILLALBA, MARLENE OLGA SALES CORRESPONDENT Unavailable Unavailable VILLALBA, MARLENE OLGA SALES CORRESPONDENT Unavailable Unavailable VILLALBA, MARLENE OLGA SALES CORRESPONDENT Unavailable Unavailable VILLALBA, MARLENE OLGA SALES CORRESPONDENT Unavailable Unavailable VILLALBA, MARLENE OLGA SALES CORRESPONDENT Unavailable Unavailable Fish, B Paco RAE Unavailable [...] Unavailable Hammad Maria MD Unavailable Unavailable Hammad Marai MD Unavailable Unavailable Hammad Maria MD Unavailable [...] Unavailable MARKO, EVELYN MD Unavailable Unavailable MARKO, EVLEYN MD Unavailable Unavailable MARKO, EVELYN MD Unavailable [...] A Jordin MD Unavailable Unavailable Marcus, A Jodrin MD Unavailable Unavailable Marcus, A Jordin MD [...] Unavailable Marcus, A Jordin MD Unavailable Unavailable Mracus, A Jordin MD Unavailable Unavailable Marcus, A [...] is protected by Article 27-F of the [facility] Public Health law. If you continue you may have access to information: Regarding HIV / AIDS; Provided by facilities licensed or operated by the [facility] Office of Mental Health; or Provided by the [facility] Office for People With Developmental Disabilities. If such information is present, then the following [facility] mandated warning applies: This information has [...] law may result in a fine or long term sentence or both. A general authorization for the release of medical or other information is NOT sufficient authorization for further disc losure. Allergies and Adverse Reactions Type Description Substance Reaction Status Data Source(s ) Drug Class NO KNOWN ALLERGIES NO KNOWN ALLERGIES [facility] Drug allergy Oxybutynin Chloride ER oxybutynin Unknown Active eCW1 ([facility]) Family History Family Member Name Family Member Gender Family Member Status Date o f Status Description Data Source(s) Unknown Unknown Problem MEDENT ([facility]) Encounters Encounter Providers Location Date Indications Data Source(s ) Unknown [address] [facility], [facility] [address] 10/17/2020 12:00:00 AM EST eCW1 ([facility]) Outpatient Attender: Jordin Marcus MD [id number] 10/16/2020 12:00 :00 AM EST Other disorders of pituitary gland [facility] Other disorders of pituitary gland Outpatient Attender: JERRY YU DO 10/11/2020 01:30:00 PM [facility] Outpatient [address] [facility] [address] 10/02/2020 12:00:00 AM EST eCW1 ([facility]) [place] [address] [facility] [address] 10/02/2020 12:00:00 AM EST eCW1 ([facility]) Outpatient Attender: Aby Muller/ [facility] 09/24/2020 01:30:00 PM EST [facility] ([facility]) Outpatient Attender: Aby Muller/ [facility] 09/05/2020 10:30:00 AM EST MEDENT ([facility]) Outpatient Attender: EVELYN ZHU MDReferrer: JERRY ELDER DO 08/30/2020 10:00:00 AM EST - 08/30/2020 10:00:00 AM EST [facility] Unknown [address] [facility] [address] 08/22/2020 12:00:00 AM EST eCW1 ([facility]) [place] [address] [facility] [address] 08/20/2020 12:00:00 AM EST eCW1 ([facility]) Unknown [address] [facility] [place] [address] 07/10/2020 12:00:00 AM EST eCW1 ([facility]) Outpatient [address] [facility] [place] [address] 07/06/2020 12:00:00 AM EST eCW1 ([facility]) Unknown [address] [facility] [place] [address] 06/07/2020 12:00:00 AM EDT eCW1 ([facility]) [place] [address] [facility] [address] 06/04/2020 12:00:00 AM EDT eCW1 ([facility]) [place] [address] [facility] [address] 05/31/2020 12:00:00 AM EDT eCW1 ([facility]) [facility] [address] [facility] [address] 04/02/2020 12:00:00 AM EDT eCW1 ([facility]) Unknown [address] [facility] [address] 03/14/2020 12:00:00 AM EDT eCW1 ([facility]) Outpatient Attender: PATRICK BUENO Physical Therapy 03/13/2020 0 1:45:00 PM EDT MEDENT ([facility]) Outpatient [address] [facility] [address] 03/07/2020 12:00:00 AM EDT eCW1 ([facility]) Outpatient Attender: EVELYN ZUH MDReferrer: JERRY ELDER DO 03/06/2020 01:00:00 PM [facility] Outpatient Attender: Maxime Zuleta MDReferrer: Constantine RIVERS.CARIN-SJZeinaCARIN 2020 11:30:18 AM EDT - 2020 12:07:50 PM EDT [facility] Outpatient Attender: PATRICK BUENO Physical Therapy 02/01/2020 0 3:45:00 PM EDT MEDENT ([facility]) [facility] [address] [facility] [address] 01/31/2020 12:00:00 AM EDT eCW1 ([facility]) Outpatient Attender: Maxime RIVERS.CARIN-SJNeftali.CARIN 12/29 12:00:00 AM EDT [address] [address] 12/08/2019 12:00:00 AM EDT eCW1 ([facility]) Outpatient Attender: Jordin Marcus MD 12/06/2019 12:00:[address] [address] 11/25/2019 12:00:00 AM EDT eCW1 ([facility]) Outpatient Attender: Jordin Marcus MD 11/08/2019 12:00:[address] [facility] Outpatient Referrer: JERRY YU DO 11/07/2019 11:30:00 AM EDT [facility] Outpatient Referrer: JERRY YU DO 11/04/2019 05:28:00 AM EST [facility] Outpatient Attender: Jordin Marcus MD 11/04/2019 12:00:[address] [facility] Outpatient Attender: PATRICK BUENO Physical Therapy 10/21/2019 0 9:00:00 AM EST MEDENT ([facility]) OFFICE OUTPATIENT NEW 30 MINUTES Attender: Paco Abarca MD Physic al Therapy 09/30/2019 01:00:00 PM EST MED[facility] ([facility]) [address] [address] 09/15/2019 12:00:00 AM EST eCW1 ([facility]) [address] [address] 09/01/2019 12:00:00 AM EST eCW1 ([facility]) Outpatient Attender: Be Maria MD 08/29/2019 06:32:00 PM [facility] Admission cancelled. Disregard status an d admitted date. Outpatient Attender: Be Maria MDAend er: OLGA VILLALBA NPAttender: JERRY SCHULTZeferrer: JERRY YU DO 08/29/2019 10:00:[address] [address] 08/26/2019 12:00:00 AM EST eCW1 ([facility]) Immunizations Vaccine Date Status Description Data Source(s) influenza, recombinant, quadrIvalent,injectable, prese rvative free 07/06/2020 03:31:00 PM EST completed eCW1 ([facility]) influenza, recombinant, quadrIvalent,injectable, prese rvative free 07/06/2020 03:31:00 PM EST completed eCW1 ([facility]) influenza, recombinant, quadrIvalent,injectable, prese rvative free 07/06/2020 03:31:00 PM EST completed eCW1 ([facility]) influenza, recombinant, quadrIvalent,injectable, prese rvative free 07/06/2020 03:31:00 PM EST completed eCW1 ([facility]) influenza, recombinant, quadrIvalent,injectable, prese rvative free 07/06/2020 03:31:00 PM EST completed eCW1 ([facility]) influenza, recombinant, quadrIvalent,injectable, prese rvative free 07/06/2020 03:31:00 PM EST completed eCW1 ([facility]) influenza, recombinant, quadrIvalent,injectable, prese rvative free 07/06/2020 03:31:00 PM EST completed eCW1 ([facility]) Medications Medication Brand Name Start Date [...] {tablet} active Ma xalt 10 MG eCW1 ([facility]) rizatriptan 10 MG Oral Tablet [Maxalt] Maxalt 10 MG Maxalt 1 0 MG 07/06/2020 12:00:00 AM EST 1.0 {tablet} active Ma xalt 10 MG eCW1 ([facility]) rizatriptan 10 MG Oral Tablet [Maxalt] Maxalt 10 MG Maxalt 1 0 MG 07/06/2020 12:00:00 AM EST 1.0 {tablet} active Ma xalt 10 MG eCW1 ([facility]) rizatriptan 10 MG Oral Tablet [Maxalt] Maxalt 10 MG Maxalt 1 0 MG 07/06/2020 12:00:00 AM EST 1.0 {tablet} active Ma xalt 10 MG eCW1 ([facility]) 30 mg 06/08/2020 12:00:00 AM EDT [...] a ctive Duloxetine HCl 30 MG eCW1 ([facility]) duloxetine 30 MG Delayed Release Oral Capsule Duloxeti ne HCl 30 MG Duloxetine HCl 30 MG 06/07/2020 12:00:00 AM EDT 1.0 {capsule} a ctive Duloxetine HCl 30 MG eCW1 ([facility]) duloxetine 30 MG Delayed Release Oral Capsule Duloxeti ne HCl 30 MG Duloxetine HCl 30 MG 06/07/2020 12:00:00 AM EDT 1.0 {capsule} a ctive Duloxetine HCl 30 MG eCW1 ([facility]) duloxetine 30 MG Delayed Release Oral Capsule Duloxeti ne HCl 30 MG Duloxetine HCl 30 MG 06/07/2020 12:00:00 AM EDT 1.0 {capsule} a ctive Duloxetine HCl 30 MG eCW1 ([facility]) duloxetine 30 MG Delayed Release Oral Capsule Duloxeti ne HCl 30 MG Duloxetine HCl 30 MG 06/07/2020 12:00:00 AM EDT 1.0 {capsule} a ctive Duloxetine HCl 30 MG eCW1 ([facility]) Sulfamethoxazole 800 MG / Trimethoprim 160 [...] {application} act bryce Hydrocortisone 2.5 % eCW1 ([facility]) Hydrocortisone 25 MG/ML Topical Cream Hydrocortisone 2.5 % H ydrocortisone 2.5 % 03/07/2020 12:00:00 AM EDT 1.0 {application} act bryce Hydrocortisone 2.5 % eCW1 ([facility]) Hydrocortisone 25 MG/ML Topical Cream Hydrocortisone 2.5 % H ydrocortisone 2.5 % 03/07/2020 12:00:00 AM EDT 1.0 {application} act bryce Hydrocortisone 2.5 % eCW1 ([facility]) Hydrocortisone 25 MG/ML Topical Cream Hydrocortisone 2.5 % H ydrocortisone 2.5 % 03/07/2020 12:00:00 AM EDT 1.0 {application} act bryce Hydrocortisone 2.5 % eCW1 ([facility]) 2.5 % 03/07/2020 12:00:00 AM EDT cream 28 APPLY TO AFFECTED AREA(S) FOUR TIMES A DAY APPLY TO AFFECTED AREA(S) FOUR TIMES A DAY SOLD: 03/07/2020 [facility] Hydrocortisone 25 MG/ML Topical Cream Hydrocortisone 2.5 % H ydrocortisone 2.5 % 03/07/2020 12:00:00 AM EDT 1.0 {application} act bryce Hydrocortisone 2.5 % eCW1 ([facility]) Hydrocortisone 25 MG/ML Topical Cream Hydrocortisone 2.5 % H ydrocortisone 2.5 % 03/07/2020 12:00:00 AM EDT 1.0 {application} act bryce Hydrocortisone 2.5 % eCW1 ([facility]) 2.5 % 03/07/2020 12:00:00 AM EDT cream 28 APPLY TO AFFECTED AREA(S) FOUR TIMES A DAY APPLY TO AFFECTED AREA(S) FOUR TIMES A DAY SOLD: 04/10/2020 [facility] Hydrocortisone 25 MG/ML Topical Cream Hydrocortisone 2.5 % H ydrocortisone 2.5 % 03/07/2020 12:00:00 AM EDT 1.0 {application} act bryce Hydrocortisone 2.5 % eCW1 ([facility]) Hydrocortisone 25 MG/ML Topical Cream Hydrocortisone 2.5 % H ydrocortisone 2.5 % 03/07/2020 12:00:00 AM EDT 1.0 {application} act bryce Hydrocortisone 2.5 % eCW1 ([facility]) Hydrocortisone 25 MG/ML Topical Cream Hydrocortisone 2.5 % H ydrocortisone 2.5 % 03/07/2020 12:00:00 AM EDT 1.0 {application} act bryce Hydrocortisone 2.5 % eCW1 ([facility]) Hydrocortisone 25 MG/ML Topical Cream Hydrocortisone 2.5 % H ydrocortisone 2.5 % 03/07/2020 12:00:00 AM EDT 1.0 {application} act bryce Hydrocortisone 2.5 % eCW1 ([facility]) Hydrocortisone 25 MG/ML Topical Cream Hydrocortisone 2.5 % H ydrocortisone 2.5 % 03/07/2020 12:00:00 AM EDT 1.0 {application} act bryce Hydrocortisone 2.5 % eCW1 ([facility]) Hydrocortisone 25 MG/ML Topical Cream Hydrocortisone 2.5 % H ydrocortisone 2.5 % 03/07/2020 12:00:00 AM EDT 1.0 {application} act bryce Hydrocortisone 2.5 % eCW1 ([facility]) Medrol Medrol 02/01/2020 12:00:00 AM EDT active MEDENT ([facility]) 4 mg 02/01/2020 12:00:00 AM EDT [...] EST active Alendronate Sodium 70 MG eCW1 ([facility]) Alendronic acid 70 MG Oral Tablet Alendronate Sodium 7 0 MG Alendronate Sodium 70 MG 09/15/2019 12:00:00 AM EST active 1 tablet 30 minutes before the first food, beverage or medicine of the day with plain water eCW1 ([facility]) Alendronic acid 70 MG Oral Tablet Alendronate Sodium 7 0 MG Alendronate Sodium 70 MG 09/15/2019 12:00:00 AM EST active Alendronate Sodium 70 MG eCW1 ([facility]) Alendronic acid 70 MG Oral Tablet Alendronate Sodium 7 0 MG Alendronate Sodium 70 MG 09/15/2019 12:00:00 AM EST active 1 tablet 30 minutes before the first food, beverage or medicine of the day with plain water eCW1 ([facility]) 70 mg 09/15/2019 12:00:00 AM EST [...] EST active Alendronate Sodium 70 MG eCW1 ([facility]) 70 mg 09/15/2019 12:00:00 AM EST [...] EST active Alendronate Sodium 70 MG eCW1 ([facility]) Alendronic acid 70 MG Oral Tablet Alendronate Sodium 7 0 MG Alendronate Sodium 70 MG 09/15/2019 12:00:00 AM EST active Alendronate Sodium 70 MG eCW1 ([facility]) Alendronic acid 70 MG Oral Tablet Alendronate Sodium 7 0 MG Alendronate Sodium 70 MG 09/15/2019 12:00:00 AM EST active Alendronate Sodium 70 MG eCW1 ([facility]) 70 mg 09/15/2019 12:00:00 AM EST [...] EST active Alendronate Sodium 70 MG eCW1 ([facility]) 70 mg 09/15/2019 12:00:00 AM EST [...] EST active Alendronate Sodium 70 MG eCW1 ([facility]) Alendronic acid 70 MG Oral Tablet Alendronate Sodium 7 0 MG Alendronate Sodium 70 MG 09/15/2019 12:00:00 AM EST active Alendronate Sodium 70 MG eCW1 ([facility]) 70 mg 09/15/2019 12:00:00 AM EST [...] type / Coverage type Policy ID Covered alliance party ID Covered alliance party's relationship to lópez Policy López Plan Information AETNA MEDICARE [id number] SP MEBRW WZQ AETNA HEALTH INC MEBRWWZQ S MEB [id number] AETNA MEDICARE COMPLETE G [id number] Self MEBRWWZQ VINI [place]IS [place] W [id number] Empl [id number] AETNA MEDICARE [id number] SP [...] MEBRWWZQ SP MEBRW WZQ ANS-Medicare Part B [id number] ANS-Medicare Part B [id number] [facility] MEDICARE [id number] S [id number] [facility] MEDICARE [id number] S [id number] ESIS CLAIMS [id number] S [id number] BCBS EXCELLUS [id number] SPO RWB [id number] BCBS EXCELLUS [id number] S RWB [id number] BCBS HMO BLUE [id number] S YNE [id number] [facility] MEDICARE [id number] S [id number] [facility] MEDICAID [id number] SPO [id number] BC EMPIRE [id number] SPO [id number] BCBS EMPIRE [id number] S [id number] [employer] [id number] S [id number] AETNA MEBRWWZQ S [id number] ANS-Medicare Part B [id number] ANSI-Medicare Part B [id number] ANSI-Medicare Part B [id number] ANSI-Medicare Part B [id number] Aetna Commercial [id number] Self [id number] ANSI-Medicare Part B [id number] ANSI-Medicare Part B [id number] AETNA MEBRWWZQ S [id number] ANSI-Medicare Part B [id number] ANSI-Medicare Part B [id number] Medicare [facility] Medicare Primary [id number] Self [id number] Aetna Medigap Part B [id number] Self MEBRW WZQ BC/BS [place] Medigap Part B [id number] Self [id number] [employer] BCBS Medigap Part B [id number] Self [id number] [facility] Medicare Commercial [id number] Self [id number] ANSI-Medicare Part B [id number] ANSI-Medicare Part B [id number] MEDICARE [id number] SP [id number] ANSI-Commercial [id number] ANSI-Medicare Part B [id number] ANSI-Commercial [id number] ANSI-Medicare Part B [id number] ANSI-Medicare Part B [id number] ANSI-Commercial [id number] ANSI-Medicare Part B [id number] ANSI-Commercial [id number] MEDICARE COMPLETE [id number] SP [id number] ANSI-Medicare Part B [id number] ANSI-Commercial [id number] MEDICARE COMPLETE [id number] SP [id number] ANSI-Commercial [id number] ANSI-Medicare Part B [id number] [employer] MEDICARE [id number] S [id number] ANSI-Commercial [id number] ANSI-Medicare Part B [id number] [facility] [id number] [id number] ANSI-Commercial [id number] ANSI-Medicare Part B [id number] ANSI-Medicare Part B [id number] ANSI-Commercial [id number] ANSI-Commercial [id number] ANSI-Medicare Part B [id number] ANSI-Commercial [id number] ANSI-Medicare Part B [id number] MEDICARE COMPLETE [id number] 92 [id number] ANSI-Commercial [id number] ANSI-Medicare Part B [id number]-[id number] ANSI-Medicare Part B [id number]-[id number] e23y2wt5-5syt-18v3-s1ny-[id number] ANSI-Commercial a669c302-nd06-585s-e294-[id number] a765q315-gk16-647v-q470-z25323c635y6 ANSI-Medicare Part B [id number]-4gm6-51x0-829f-nj51rb1ty5q6 777hq76t-6ph1-73i2-654z-xi57hr8bl1s2 ANSI-Commercial 4got54p8-h341-4339-viq7-q9d9982b5nk9 1lmw44k9-q470-0159-ixu0-d2i2835s0sv0 ANSI-Medicare Part B [id number]-4s34-3ulm-4jl6-7be936s5g5nl 5g72ht2q-3s93-8esl-9af5-9xr649o8q3cn ANSI-Commercial 13t753kp-o760-4657-[id number] 45g637go-l814-8465-[id number] ANSI-Medicare Part B [id number]-[id number] [id number]-aki7-171j-v62l-[id number] ANSI-Commercial fv84j593-8913-6498-hp02-8266zh0099mv ar39l183-2026-5123-mw70-7963nl8805ry ANSI-Commercial w1c1f210-9j91-37h0-yu85-00cd8f0oqw73 a1j5p203-1l98-68b7-we43-10fm6o0sab29 ANSI-Medicare Part B [id number]-[id number] 4432o6mo-a2l4-0zk9-6f4b-[id number] ANSI-Medicare Part B [id number]-f5s3-07s1-6d1k-xj1024t3d2e5 [id number]-i3q6-17d1-4y5a-tc0145n0k2s8 ANSI-Commercial c1297d50-38k6-975h-8ccv-oq91ra6345s2 h4532u81-11w0-347a-7erc-xk48yi2904a2 ANSI-Commercial 13a0t36m-5789-5714-uu45-444t192ze4bk 98o6r24r-6639-1950-br08-791h867be9hm ANSI-Medicare Part B [id number]-[id number] dd13h16v-3435-78m8-503p-[id number] UHC UNITED MEDICARE COMPLETE G [id number] Self [id number] [facility] Medicare Medigap Part B [id number] Self [id number] BS iFACETS Commercial [id number] Self [id number] BC/BS [place] Medigap Part B [id number] Self [id number] [employer] Medigap Part B [id number] Self [id number] Unitedhealthcare Medicare Commercial [id number] Self [id number] [employer] [id number] S [id number] [employer] [id number] S [id number] BC/BS [place] Medigap Part B [id number] Self [id number] [employer] Medigap Part B [id number] Self [id number] BC/BS [place] Medigap Part B [id number] Self [id number] [employer] Medigap Part B [id number] Self [id number] BC/BS [place] Medigap Part B [id number] Self [id number] [employer] Medigap Part B [id number] Self [id number] [employer] C [id number] Self [id number] BC/BS [place] Medigap Part B Self [employer] Health Maintenance Organization (HMO) Self MEDICARE - [place] MCR [id number] S [id number] [place] BCBS B [id number] S [place] [id number] [place] P[place] 302/307 [id number] SP [id number] BS [place] Medigap Part B Family Dependent BS [place] Medigap Part B Self BS [place] Medigap Part B Family Dependent BS [place] Medigap Part B Self BS [place] Medigap Part B BS [place] Medigap Part B Self BS [place] Medigap Part B BS [place] Commercial Self [place]AT[place] PPO 302/307 [id number] SP [id number] [place]ST[place] [id number] SP [id number] DESTINEY [id number] HU2 [id number] BCBS OF [place] BC [id number] S YNE [id number] BCBS GENERIC C [id number] Unkn [id number] BLUE CARD C [id number] Spouse [id number] [place]ST[place] CARE BEVERLY HMO [id number] S [id number] DESTINEY CARE [place]EVERLY HMO [id number] S [id number] DESTINEY [id number] HU2 [id number] [id number] BS [place] Medigap Part B Family Dependent BS [place] Commercial Self BLUE CROSS [id number] HUS [id number] SELF PAY UNAVAILABLE [facility]A [facility] O UNAVAILABLE C UNAVAILABLE BLUE CROSS [id number] S [id number] [place] 305/805 [id number] HU2 [id number] BLUE CROSS [id number] S [id number] BCBS OF [place] BC [id number] SPO [place] [id number] [place]LL[place] BCBS P [id number] [place] [id number] EXCELLUS BCBS P [id number] S RWB [id number] 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 303/803 [id number] HU2 [id number] [facility] 303/803 [id number] SP [id number] ESIS CLAIMS WC [id number] S [id number] [place] BCBS P [id number] S RWB [id number] BCBS [facility] 303/803 [id number] HU2 [id number] [facility] [facility] 303/803 [id number] HU2 [id number] [facility] 303/803 [id number] SP [id number] Problems, Conditions, and Diagnoses Code Display Name Description Problem Type Effective Dates Data Source(s) E23.6 [id number] Pituitary cyst Problem 12/08/2019 12:00:00 A M EDT [facility] ([facility]) E23.6 [id number] Rathke's cleft cyst Problem 12/08/2019 12:00 :00 AM EDT [facility] ([facility]) E23.6 [id number] Rathke's cleft cyst Problem 12/08/2019 12:00 :00 AM EDT [facility] ([facility]) M81.0 [id number] Age-related osteoporosis without current pathological fracture Problem 09/15/2019 12:00:00 AM EST [facility] ([facility]) M81.0 [id number] Age-related osteoporosis without current pathological fracture Problem 09/15/2019 12:00:00 AM EST [facility] ([facility]) R06.89 Other abnormalities of breathing OTHER ABNORMALI TIES OF BREATHING Diagnosis 10/11/2020 04:21:00 PM [facility] Z12.31 Encounter for screening mammogram for ma lignant neoplasm of breast ENCNTR SCREEN MAMMOGRAM FOR MALIGNANT NEOPLASM OF BREAST Diagnosis 10:00:00 AM [facility] R92.2 Inconclusive mammogram INCONCLUSIVE MAMMOGRAM Diagnosi s 03/06/2020 01:00:00 PM [facility] R06.09 Other forms of dyspnea Other forms of dyspnea Diagnosi s 2020 11:30:18 AM EDT [facility] N95.1 Menopausal and female climacteric states MENOPAUSAL AND FEMALE CLIMACTERIC STATES Diagnosis 08/29/2019 10:00:00 AM [facility] l Z78.0 Asymptomatic menopausal state ASYMPTOMATIC MENOPAUSAL STATE Diagnosis 08/29/2019 10:00:00 AM [facility] M85.88 Other specified disorders of bone densit y and structure, other site OTH DISRD OF BONE DENSITY AND STRUCTURE, OTHER SITE Diagnosis 2018 10:00:00 AM [facility] M85.80 Other specified disorders of bone density and structure, unspecified site OTH DISRD OF BONE DENSITY AND STRUCTURE, UNSPECIFIED SITE Di agnosis 08/29/2019 10:00:00 AM [facility] Surgeries/Procedures Procedure Description Date Indications Data Source(s) CYSTOURETHROSCOPY 09/24/2020 12:00:00 AM EST [facility] ([facility]) CT ABDOMEN & PELVIS W/O CONTRST 1/> BODY REGIONS 09/24 12:00:00 AM EST [facility] ([facility]) Immunization: Flublok Quadrivalent (18 years & older) 0.5mL IM (Influenza) 07/06/2020 12:00:00 AM EST eCW1 ([facility]) PHYSICIAN TELEPHONE EVALUATION 11-20 MIN 12/08/2019 12 :00:00 AM EDT eCW1 ([facility]) RADEX SPINE LUMBOSACRAL MINIMUM 4 VIEWS 09/30/2019 12: 00:00 AM EST [facility] ([facility]) X-Ray Hips Bilateral With Pelvis 3-4 Views 09/30/2019 12:00:00 AM EST [facility] ([facility]) REVJ/RMVL PERIPHERAL NEUROSTIMULATOR ELECTRODE 020 12:00:00 AM EST [facility] ([facility]) REVISION/RMVL PERIPHERAL/GASTRIC NPGR 09/08/2019 12:00 :00 AM EST [facility] ([facility]) Results ID Date Data Source [id number] 10/16/2020 11:57:17 AM EST [facility] Name Value Range Interpretation Code Description Data Katty rce(s) Supporting Document(s) Progress Note [facility] [id number] lbm [file] [id number]= ID Date Data Source [id number] 09/24/2020 02:22:00 PM EST [facility] ([facility]) Name Value Range Interpretation Code Description Data Katty rce(s) Supporting Document(s) Protein [Presence] in Urine by Test strip Laboratory test result [facility] ([facility]) Glucose [Presence] in Urine Laboratory test result [facility] ([facility]) Ua Leuko Laboratory test result [facility] ([facility]) Blood [Presence] in Urine by Visual Laboratory test result [facility] ([facility]) Ua Nitrite Laboratory test result [facility] ([facility]) Ketones [Presence] in Urine by Test strip Laboratory test result [facility] ([facility] [place]) Color of Urine Laboratory test result [facility] ([facility]) pH of Urine by Test strip 5.5 5.0-7.5 [facility] ([facility]) Clarity of Urine Laboratory test result [facility] ([facility]) Ua Specific [place] Laboratory test result 1.003-1.030 [facility] ([facility]) Urobilinogen [Mass/volume] in Urine by Test strip 0.2 E.U./dL 0.0-1.0 [facility] ([facility]) Bilirubin.total [Presence] in Urine by Test strip Laboratory test res ult [facility] ([facility]) ID Date Data Source [id number] 09/05/2020 12:05:00 PM EST [facility] ([facility]) Name Value Range Interpretation Code Description Data Katty rce(s) Supporting Document(s) Creatinine [Mass/volume] in Serum or Plasma 0.74 mg/dL 0.57-1.11 [facility] ([facility]) eGFR - Descent 93.3 [facility] ([facility]) eGFR -- Non- Descent 77.0 [facility] ([facility]) ID Date Data Source [id number] 09/05/2020 12:05:00 PM EST [facility] ([facility]) Name Value Range Interpretation Code Description Data Katty rce(s) Supporting Document(s) Creatinine [Mass/volume] in Serum or Plasma Laboratory test result [facility] ([facility]) Urea nitrogen [Mass/volume] in Serum or Plasma 14.0 mg/dL 7.0-24.0 [facility] ([facility]) ID Date Data Source [id number] 09/05/2020 11:40:00 AM EST [facility] ([facility]) Name Value Range Interpretation Code Description Data Katty rce(s) Supporting Document(s) Ua Nitrite Laboratory test result [facility] ([facility]) Protein [Presence] in Urine by Test strip Laboratory test result [facility] ([facility]) Glucose [Presence] in Urine Laboratory test result [facility] ([facility]) Ua Leuko Laboratory test result [facility] ([facility]) Color of Urine Laboratory test result [facility] ([facility] [place]) Blood [Presence] in Urine by Visual Laboratory test result [facility] ([facility]) Ua Specific [place] 1.020 1.003-1.030 [facility] ([facility]) Clarity of Urine Laboratory test result [facility] ([facility]) Ketones [Presence] in Urine by Test strip Laboratory test result [facility] ([facility]) pH of Urine by Test strip 5.5 5.0-7.5 [facility] ([facility]) Bilirubin.total [Presence] in Urine by Test strip Laboratory test res ult [facility] ([facility]) Urobilinogen [Mass/volume] in Urine by Test strip 0.2 E.U./dL 0.0-1.0 [facility] ([facility]) ID Date Data Source [id number] 09/02/2020 05:50:00 PM EST [facility] [...] analyzed through the latest version of the [place] computer aideddiagnosis system. The patient states that [...] UA URINALYSIS 05/31/2020 03:06:16 AM EDT eCW1 ([facility]) Name Value Range Interpretation Code Description Data Katty rce(s) Supporting Document(s) Laboratory studies (set) UA URINALYS IS eCW1 ([facility]) ID Date Data Source [id number] 03/06/2020 01:44:00 PM EDT [facility] [...] rce(s) Supporting Document(s) ID Date Data Source [id number] 03/06/2020 01:43:00 PM EDT [facility] [...] rce(s) Supporting Document(s) ID Date Data Source [id number] 02/28/2020 12:52:00 PM EDT [facility] ([facility]) Name Value Range Interpretation Code Description Data Katty rce(s) Supporting Document(s) Creatinine For GFR 0.81 mg/dL 0.55-1.30 [facility] ([facility]) Glomerular Filtration Rate Laboratory test result [facility] ([facility]) <content>Units are mL/min/1.73 m2</content>
<content></content>
<content>Chronic Kidney Disease Staging per NKF:</content>
<content></content>
<content>Stage I & II GFR >=60 Normal to Mildly Decreased</content>
<content>Stage III GFR 30- 59 Moderately Decreased</content>
<content>Stage IV GFR 15-29 Severely Decreased</content>
<content>Stage V GFR <15 Very Little GFR Left</content>
<content>ESRD GFR <15 on GLOBAL CLIMATE CHANGE RESEARCHER</content>
<content></content> ID Date Data Source [id number] 02/28/2020 12:52:00 PM EDT [facility] ([facility]) Name Value Range Interpretation Code Description Data Katty rce(s) Supporting Document(s) Urea nitrogen [Mass/volume] in Serum or Plasma 10 mg/dL 7-18 [facility] ([facility]) ID Date Data Source [id number] 2020 07:47:51 PM EDT [facility] Name Value Range Interpretation Code Description Data Katty rce(s) Supporting Document(s) &PDF [facility] [id number]/[id number]SWFmU4LxiCyyRNuHH2LJTpQHQMVQGy3ZWUHL 0b3 [file] ICAgICAgICAgICAgICAgICAgICAgICAgICAgICAgICAgICAgICAgICAgICAgICAgICAgICAgICAgICAg ICAgICAgICAgICAgICAgICAgICANCiAgICAgICAgIC AgICAgICAgICAgICAgICAgICAgICAgICAgICAgICAgICAgICAgICAgICAgICAgICAgICAgICAgICAgIC AgICAgICAgICAgICAgICAgICAgICAgICAgICAgICANCiAgICAgICAgICAgICAgICAgICAgICAgICAgIC AgICAgICAgICAgICAgICAgICAgICAgICAgICAgICAg ICAgICAgICAgICAgICAgICAgICAgICAgICAgICAgICAgICAgICAgICANCiAgICAgICAgICAgICAgICAg ICAgICAgICAgICAgICAgICAgICAgICAgICAgICAgICAgICAgICAgICAgICAgICAgICAgICAgICAgICAg ICAgICAgICAgICAgICAgICAgICAgICANCiAgICAgIC AgICAgICAgICAgICAgICAgICAgICAgICAgICAgICAgICAgICAgICAgICAgICAgICAgICAgICAgICAgIC AgICAgICAgICAgICAgICAgICAgICAgICAgICAgICAgICANCiAgICAgICAgICAgICAgICAgICAgICAgIC AgICAgICAgICAgICAgICAgICAgICAgICAgICAgICAg ICAgICAgICAgICAgICAgICAgICAgICAgICAgICAgICAgICAgICAgICAgICANCiAgICAgICAgICAgICAg ICAgICAgICAgICAgICAgICAgICAgICAgICAgICAgICAgICAgICAgICAgICAgICAgICAgICAgICAgICAg ICAgICAgICAgICAgICAgICAgICAgICAgICANCiAgIC AgICAgICAgICAgICAgICAgICAgICAgICAgICAgICAgICAgICAgICAgICAgICAgICAgICAgICAgICAgIC AgICAgICAgICAgICAgICAgICAgICAgICAgICAgICAgICAgICANCiAgICAgICAgICAgICAgICAgICAgIC AgICAgICAgICAgICAgICAgICAgICAgICAgICAgICAg ICAgICAgICAgICAgICAgICAgICAgICAgICAgICAgICAgICAgICAgICAgICAgICANCiAgICAgICAgICAg ICAgICAgICAgICAgICAgICAgICAgICAgICAgICAgICAgICAgICAgICAgICAgICAgICAgICAgICAgICAg ICAgICAgICAgICAgICAgICAgICAgICAgICAgICANCj w/tMKjH3hnbUIgjrG6W7gbIr7VHr0PHF1rp2NcAYApCWgzarLkOdiLMuMqXMQnQplMLkr5QFgxQY9JyG PmT1JqI9LfYCmgDX3BKAYiZOZitGPcBGMsGCPsNwP9VVNsZQliBW0LpAPkPPdgFVDmXKBbFtCfICPgIA 6LHIBaL256bhOiKm5FAp6GCaGtGI6bhr5TMyRtJXXx YykBAwc3VTobOP0WgTBsJ6BzaSDxj1zGUzIzW9BDDEU2IQYuRq4MRVFfGcUmVFJtIVgeWY2hTRCdUKUP oQqxxmA0JB1UKC7pptVcRV7UQtTwPh4gFs9TRcXnN6MkK1UoWCGdJSOJDSvrYO9ZTYHlWME9UGNcBIYj IGWHKnIyE98wSH7HD2Dok52rInL3EMMrUxGnWGyyVA 63qLksekTrfYIzjHytJL4BYl6+JRwsyhQzWtdGQgacGXFUJyRtGbBCHdDxECQiMREfHDXkWqV2ZqDuKg 5QPBOeQHMtSPPlDsZpZFAwSQOqVWzcNVMfVMW6BAF0ZOQeXJUfXB8VKeUjZHOhKQr1IvAaORFbYCXjnb 5ITNLaGFAmZXO9JJLlFHLuJVQrXCcrQBQpYBTwZACk WTZgRRRvHI1CYeGcHXGjHTBxYUUpBLZwWIEqyc3CJKEzLIWsLpb7EzHpJQVkGBMoNTlwKDEoGGN6YKE7 QILwWXAzGI2WHhChPKBuMSBvNvLxTVSmPUYtxk5UMCZyWIQjKMEkEIUiAOXgVUCxQOhzPNNrJWW7HNYp QZZnCDTfLA2GWcWcIXVmZWV4AbFtLVMhGSQkxx2BNI EsEETjEqR7GwBzMZIdWWFzIXsuTUObBVR4XDGvIUItGYTpTX8DXiOvNSCdKFb5IBixXLYkBOHcln3IMF KlNDDgAVWxFTWsNPMtCZTsYIryIBWkHQZ5NZi7EPNkLVOjGG0BKkXcHLKpWJP1WPqsEBDlFKVyfw6YUO KhHMDjYdxqGQZdIKCmOHYoHRzeOAXeEEU6KbY1NKBl XYWzUO7GWaIeNIMvTYx1PJAjRNDmHATgdl0VfYLhgUweyq9JKTkGIi4EiAtdJZSsMZodFo6dfSEpHEAt CMUVZn3HpyIfPIQdLPXKWTrbGJHuTHP7L0EoYQPqQrkmZgNeSPh9YvMbCmc1IDY1PZecAAtlWmQ1JUpc NgO7SEN3OUYkHLA7HIDqKDRpKYl6MlxsG2R3BSO+IF 0gDQo+By7Cc7AecoN5gpMmPFzbRCk1Xk2KJNOKN3EYCb== ID Date Data Source [id number] 08/29/2019 01:23:00 PM EST [facility] [...] analyzed through the latest version of the [facility] computer aideddiagnosis system. The patient states [...] EST Former Smoker completed Former Smoker eCW1 ([facility]) Smoking 10/02/2020 12:00:00 AM EST Former Smoker completed Former Smoker eCW1 ([facility]) Smoking 10/02/2020 12:00:00 AM EST Former Smoker completed Former Smoker eCW1 ([facility]) Smoking 09/20/2020 12:00:00 AM EST Former Cigarette Smoker com pleted Former Cigarette Smoker [facility] ([facility]) Smoking 07/06/2020 12:00:00 AM EST Former Smoker completed Former Smoker eCW1 ([facility]) Smoking 07/06/2020 12:00:00 AM EST Former Smoker completed Former Smoker eCW1 ([facility]) Smoking 07/06/2020 12:00:00 AM EST Former Smoker completed Former Smoker eCW1 ([facility]) Smoking 07/06/2020 12:00:00 AM EST Former Smoker completed Former Smoker eCW1 ([facility]) Smoking 03/07/2020 12:00:00 AM EDT Former Smoker completed Former Smoker eCW1 ([facility]) Smoking 03/07/2020 12:00:00 AM EDT Former Smoker completed Former Smoker eCW1 ([facility]) Smoking 03/07/2020 12:00:00 AM EDT Former Smoker completed Former Smoker eCW1 ([facility]) Smoking 03/07/2020 12:00:00 AM EDT Former Smoker completed Former Smoker eCW1 ([facility]) Smoking 03/07/2020 12:00:00 AM EDT Former Smoker completed Former Smoker eCW1 ([facility]) Vital Signs ID Date Data Source UNK Name Value Range Interpretation Code Description Data Source(s) Diastolic blood pressure 79 mm[Hg] 79 mm[Hg] eCW1 ([facility]) Systolic blood pressure 115 mm[Hg] 115 mm[Hg] e CW1 ([facility]) Body temperature 97.3 [degF] 97.3 [degF] eCW1 ( [facility]) Respiratory rate 16 /min 16 /min eCW1 ([facility]) Heart rate 95 /min 95 /min eCW[facility] ([facility] Body mass index (BMI) [Ratio] 28.77 kg/m2 28.77 kg/m2 eCW1 ([facility]) Body height [in_i] eCW1 ([facility]) Body weight 165 [lb_av] 165 [lb_av] eCW1 ([facility]) Body temperature 97.0 [degF] 97.0 [degF] [facility] ([facility]) Heart rate 78 /min 78 /min [facility] ([facility] Diastolic blood pressure 90 mm[Hg] 90 mm[Hg] [facility] ([facility]) Systolic blood pressure 127 mm[Hg] 127 mm[Hg] M [facility] ([facility]) Body mass index (BMI) [Ratio] 28.0 kg/m2 28.0 k g/m2 [facility] ([facility]) Body weight 73.937 kg 73.937 kg [facility] ([facility] Body weight 163.00 [lb_av] 163.00 [lb_av] [facility] T ([facility]) Body height 64 [in_i] 64 [in_i] [facility] ([facility]) 5'4" Diastolic blood pressure 71 mm[Hg] 71 mm[Hg] eCW1 ([facility]) Systolic blood pressure 120 mm[Hg] 120 mm[Hg] e CW1 ([facility]) Body temperature 97.8 [degF] 97.8 [degF] eCW1 ( [facility]) Respiratory rate 18 /min 18 /min eCW1 ([facility]) Heart rate 93 /min 93 /min eCW1 ([facility] Body mass index (BMI) [Ratio] 28.07 kg/m2 28.07 kg/m2 eCW1 ([facility]) Body height [in_i] eCW1 ([facility]) Body weight 161 [lb_av] 161 [lb_av] eCW1 ([facility]) Diastolic blood pressure 84 mm[Hg] 84 mm[Hg] eCW1 ([facility]) Systolic blood pressure 129 mm[Hg] 129 mm[Hg] e CW1 ([facility]) Body temperature 96.8 [degF] 96.8 [degF] eCW1 ( [facility]) Respiratory rate 18 /min 18 /min eCW1 ([facility]) Heart rate 77 /min 77 /min eCW1 ([facility] Body mass index (BMI) [Ratio] 27.37 kg/m2 27.37 kg/m2 eCW1 ([facility]) Body height [in_i] eCW1 ([facility]) Body weight 157 [lb_av] 157 [lb_av] eCW1 ([facility]) Body mass index (BMI) [Ratio] 27.9 kg/m2 27.9 k g/m2 [facility] ([facility]) Body weight 156.25 [lb_av] 156.25 [lb_av] [facility] T ([facility]) Body height 62.75 [in_i] 62.75 [in_i] [facility] ([facility]) 5'2.75" Body temperature 97.9 [degF] 97.9 [degF] [facility] ([facility]) Diastolic blood pressure 66 mm[Hg] 66 mm[Hg] [facility] ([facility] Systolic blood pressure 114 mm[Hg] 114 mm[Hg] M [facility] ([facility]) Patient Treatment Plan of Care Planned Activity Planned Date Details Description Data Source (s) rizatriptan 10 MG Oral Tablet [Maxalt] 07/06/2020 12:00:00 AM EST eCW1 ([facility]) rizatriptan 10 MG Oral Tablet [Maxalt] 07/06/2020 12:00:00 AM EST eCW1 ([facility]) rizatriptan 10 MG Oral Tablet [Maxalt] 07/06/2020 12:00:00 AM EST eCW1 ([facility]) rizatriptan 10 MG Oral Tablet [Maxalt] 07/06/2020 12:00:00 AM EST eCW1 ([facility]) duloxetine 30 MG Delayed Release Oral Capsule 06/07/2020 12:00:00 A M EDT eCW1 ([facility]) Hydrocortisone 25 MG/ML Topical Cream 03/07/2020 12:00:00 AM EDT eCW1 ([facility]) Hydrocortisone 25 MG/ML Topical Cream 03/07/2020 12:00:00 AM EDT eCW1 ([facility]) Hydrocortisone 25 MG/ML Topical Cream 03/07/2020 12:00:00 AM EDT eCW1 ([facility]) Hydrocortisone 25 MG/ML Topical Cream 03/07/2020 12:00:00 AM EDT eCW1 ([facility]) Hydrocortisone 25 MG/ML Topical Cream 03/07/2020 12:00:00 AM EDT eCW1 ([facility]) Alendronic acid 70 MG Oral Tablet 09/15/2019 12:00:00 AM EST eCW1 ([facility]) Alendronic acid 70 MG Oral Tablet 09/15/2019 12:00:00 AM EST eCW1 ([facility]) Alendronic acid 70 MG Oral Tablet 09/15/2019 12:00:00 AM EST eCW1 ([facility]) Alendronic acid 70 MG Oral Tablet 09/15/2019 12:00:00 AM EST eCW1 ([facility]) Alendronic acid 70 MG Oral Tablet 09/15/2019 12:00:00 AM EST eCW1 ([facility]) Alendronic acid 70 MG Oral Tablet 09/15/2019 12:00:00 AM EST eCW1 ([facility])
[2020-10-22 18:09] LABS: ALBUMIN 3.7 GM/DL (3.2-5.2); ALT/SGPT 22 U/L (12-78); BILIRUBIN,DIRECT < 0.1 MG/DL (0.0-0.2); BILIRUBIN,TOTAL 0.5 MG/DL (0.2-1.0); BLOOD UREA NITROGEN 11 MG/DL (7-18); CALCIUM LEVEL 8.5 MG/DL (8.8-10.2); CARBON DIOXIDE LEVEL 25 MEQ/L (21-32); CHLORIDE LEVEL 112 MEQ/L (98-107); CK-MB VALUE MASS < 1.0 NG/ML (<3.6); CPK CREATINE PHOSPHOKINASE 74 U/L (26-192); CREATININE FOR GFR 0.75 MG/DL (0.55-1.30); GLOMERULAR FILTRATION RATE > 60.0 (>45); GLUCOSE, FASTING 86 MG/DL (70-100); MB/CK RELATIVE INDEX 1.35 (< OR =4); POTASSIUM SERUM 3.7 MEQ/L (3.5-5.1); SODIUM LEVEL 144 MEQ/L (136-145); THYROXINE (T4) 9.5 UG/DL (4.5-12.0); TOTAL PROTEIN 6.7 GM/DL (6.4-8.2); TROPONIN I < 0.02 NG/ML (< 0.10)
[2020-10-22] MEDS ORDERED: ISOVUE-370 76% 100ML VIAL As Ordered ONE (18:13)
--- NOTE | 2020-10-22 19:00 | REPVR ---
PROCEDURE INFORMATION: Exam: CT Angiography Chest With Contrast Exam date and time: 10/22/2020 5:28 PM Age: 65 years old Clinical indication: Shortness of breath; Chest pain; Other: Deep inspiration; Additional info: Pain with deep inspiration x 6 mo, SOB TECHNIQUE: Imaging protocol: Computed tomographic angiography of the chest with contrast. 3D rendering (Not supervised by radiologist): MIP and/or 3D reconstructed images were created by the technologist. Radiation optimization: All CT scans at this facility use at least one of these dose optimization techniques: automated exposure control; mA and/or kV adjustment per patient size (includes targeted exams where dose is matched to clinical indication); or iterative reconstruction. Contrast material: ISOVUE 370; Contrast volume: 75 ml; Contrast route: INTRAVENOUS (IV); COMPARISON: [place] Chest, 2 view PA, Lat 10/22/2020 4:45 PM FINDINGS: Pulmonary arteries: Normal. No pulmonary emboli. Aorta: Unremarkable. No aortic aneurysm. No aortic dissection. Lungs: Unremarkable. No consolidation. No masses. Pleural spaces: Unremarkable. No pneumothorax. No pleural effusion. Heart: Unremarkable. No cardiomegaly. No pericardial effusion. Lymph nodes: Unremarkable. No enlarged lymph nodes. Bones/joints: Unremarkable. No acute fracture. Soft tissues: Unremarkable. IMPRESSION: No acute findings. Electronically signed by: Bryan Ibarra On 10/22/2020 19:00:43 PM
[2020-10-22] MEDS ORDERED: GI COCKTAIL 50ML BTL(HYOSCYAMINE/MAALOX/LIDOCAINE VISCOUS)(1:3:1) PO ONE (19:15)
[2020-10-22 19:52] VITALS: BP 131/79
--- NOTE | 2020-10-23 16:26 | ECGEPIP ---
[facility] - ED Test Date: 2020-10-22 Pat Name: SANTOS GARCIA Department: Room: - Gender: Female [employer] Lecturer: chevy joel : 1955 Requested By: Rosy Burden Order Number: [id number] Reading MD: Andrew Chan Measurements Intervals [place] Rate: 89 P: 48 FL: 172 QRS: 5 QRSD: 80 T: 26 QT: 354 QTc: 430 Interpretive Statements Normal sinus rhythm Nonspecific ST-T wave abnormalities subtly changed from tracing done 09-18-14 Electronically Signed on 10-23-2020 16:25:55 EST by Andrew Chan
== END 2020-10-22 20:20 | disposition home or self-care (01) ==
LOC: M ED 16:11
DX: R07.89 Other chest pain (principal); R51.9 Headache, unspecified; K21.9 Gastro-esophageal reflux disease without esophagitis; Z87.891 Personal history of nicotine dependence; Z79.899 Other long term (current) drug therapy; Z91.89 Other specified personal risk factors, not elsewhere classified
CPT/HCPCS: 71046; 71275; 80048; 80076; 82550; 82553; 84436; 84443; 84484; 85025; 93005; 99284; Q9967

== ENCOUNTER → 2020-11-13 | Outpatient (CLI) | payer MEDICARE ==
[~2020-11-13] MED LIST changes: +ALEN70TA82; +DULO1CAP5; +E-Z-GAS II EFFERVESCENT PACKET (SODIUM BICARB./CITRIC ACID/SIMETHICONE) As Ordered ONE; +E-Z-HD 98% w/w 340GM SUSP BTL As Ordered ONE; +E-Z-PAQUE 96% w/w SUSP 176GM BTL As Ordered ONE; +OXYB-54; +TOPI100T9
--- NOTE | 2020-11-13 19:17 | REP ---
INDICATION: HEARTBURN, PAIN IN THROAT. COMPARISON: None. TECHNIQUE: The procedure was performed under the direct supervision of Dr. Hyde. The images were reviewed with Dr. Hyde. Liquid barium and gas producing crystals were given in the erect position as well as liquid barium in the prone oblique position in order to perform a double contrast upper GI examination. 1.9 minutes of fluoro time was utilized for this procedure. FINDINGS: The decorator hand film shows no organomegaly or pathological masses. The intestinal gas pattern is non-specific. The oral and pharyngeal stages of deglutition are unremarkable. During esophageal transporter tertiary waves demonstrated. There is no esophagitis or stricture mucosal ring or hiatal hernia. Gastroesophageal reflux is not demonstrated on this examination. Within the stomach there are prominent gastric folds which may represent gastritis. There is no valentine ulcer identified. In the post bulbar duodenum there are thickened folds which may represent duodenitis. There is no valentine ulcer identified. The visualized portion of the proximal small bowel appears normal in course and caliber. IMPRESSION: 1. Tertiary waves. 2. There are prominent folds within the stomach which may represent gastritis. There is no valentine ulcer identified. 3. There are thickened folds in the duodenum which may represent duodenitis. There is no valentine ulcer identified. <Electronically signed by Osvaldo Lomax > 11/13/20 [id number] <Electronically signed by John Hyde > 11/13/20 [id number]
== END ==
LOC: M RAD 08:34
PROVIDERS: ATTEND Physician Assistant Medical
DX: R12 Heartburn (principal)

== ENCOUNTER → 2020-12-13 | Outpatient (CLI) | payer MEDICARE ==
[~2020-12-13] MED LIST changes: -ALEN70TA82; +ALEN70TA82 PO; -DULO1CAP5; +DULO1CAP5 PO; -E-Z-GAS II EFFERVESCENT PACKET (SODIUM BICARB./CITRIC ACID/SIMETHICONE) As Ordered ONE; -E-Z-HD 98% w/w 340GM SUSP BTL As Ordered ONE; -E-Z-PAQUE 96% w/w SUSP 176GM BTL As Ordered ONE; +GREE1TAB PO; +OMEGCAP4 PO; +OSTETAB2 PO; -OXYB-54; +OXYB-54 PO; -TOPI100T9; +TOPI100T9 PO; +VITA30005 PO
== END ==
LOC: M LABSMTC 12:29
PROVIDERS: ATTEND Anesthesiology
DX: Z01.812 Encounter for preprocedural laboratory examination (principal); Z20.822 Contact with and (suspected) exposure to COVID-19

== ENCOUNTER 2020-12-18 13:18 | Day surgery (SDC) | payer MEDICARE ==
[~2020-12-18] VITALS: Ht 162.6 cm; Wt 72.1 kg
[~2020-12-18 13:18] MED LIST changes: +LIDOCAINE 2% 100MG/5ML SDV (FOR ANES.) As Ordered ONE; +NS 1,000 ML IV ONE; +propofoL 200 MG/20 ML VIAL As Ordered ONE
--- NOTE | 2020-12-18 15:53 | ROOR ---
Patient Name: Mirela Briones Procedure Date: 12/18/2020 3:34 PM Date of : 1955 Age: 65 Room: [facility] Gender: Female Note Status: Finalized Procedure: Upper GI endoscopy Indications: Abnormal UGI series Providers: Andrew WEBSTER MD Referring MD: JERRY YU DO Requesting Provider: Medicines: Monitored Anesthesia Care Complications: No immediate complications. Procedure: Pre-Anesthesia Assessment: - The heart rate, respiratory rate, oxygen saturations, blood pressure, adequacy of pulmonary ventilation, and response to care were monitored throughout the procedure. The Endoscope was introduced through the mouth, and advanced to the second part of duodenum. The upper GI endoscopy was accomplished without difficulty. The patient tolerated the procedure well. Findings: The esophagus was normal. The stomach was normal. The examined duodenum was normal. Several biopsies were obtained in the gastric body, in the gastric antrum and in the duodenal bulb with cold forceps for histology. Impression: - Normal esophagus. - Normal stomach. - Normal examined duodenum. - Several biopsies were obtained in the gastric body, in the gastric antrum and in the duodenal bulb. Recommendation: - Observe patient's clinical course. - Continue present medications. - Follow an antireflux regimen. - Telephone endoscopist for pathology results in 2 weeks. Procedure Code(s): --- Professional --- 55757, Esophagogastroduodenoscopy, flexible, transoral; with biopsy, single or multiple Diagnosis Code(s): --- Professional --- R93.3, Abnormal findings on diagnostic imaging of other parts of digestive tract CPT copyright 2019 [employer]. All rights reserved. The codes documented in this report are preliminary and upon utility bill collector review may be revised to meet current compliance requirements. Andrew Webster MD Andrew WEBSTER MD 12/18/2020 3:53:00 PM Electronically signed by Andrew WEBSTER MD Number of Addenda: 0 Note Initiated On: 12/18/2020 3:34 PM Estimated Blood Loss: Estimated blood loss: none.
[2020-12-18 16:18] VITALS: BP 133/87
== END 2020-12-18 16:19 | disposition home or self-care (01) ==
LOC: M OPP 13:18
PROVIDERS: ATTEND Internal Medicine Gastroenterology
DX: R93.3 Abnormal findings on diagnostic imaging of other parts of digestive tract (principal); R12 Heartburn; R07.0 Pain in throat; Z79.899 Other long term (current) drug therapy; Z91.040 Latex allergy status; Z87.891 Personal history of nicotine dependence; Z80.0 Family history of malignant neoplasm of digestive organs; Z80.3 Family history of malignant neoplasm of breast

== ENCOUNTER → 2020-12-26 | Outpatient (CLI) | payer MEDICARE ==
[~2020-12-26] MED LIST changes: +ISOVUE-370 76% 100ML VIAL As Ordered ONE; -LIDOCAINE 2% 100MG/5ML SDV (FOR ANES.) As Ordered ONE; -NS 1,000 ML IV ONE; -propofoL 200 MG/20 ML VIAL As Ordered ONE
--- NOTE | 2020-12-26 10:48 | REPVR ---
PROCEDURE INFORMATION: Exam: CT Neck With Contrast Exam date and time: 12/26/2020 10:16 AM Age: 65 years old Clinical indication: Other: Hemoptysis TECHNIQUE: Imaging protocol: Computed tomography images of the neck with contrast. Radiation optimization: All CT scans at this facility use at least one of these dose optimization techniques: automated exposure control; mA and/or kV adjustment per patient size (includes targeted exams where dose is matched to clinical indication); or iterative reconstruction. Contrast material: ISOVUE 370; Contrast volume: 75 ml; Contrast route: INTRAVENOUS (IV); COMPARISON: No relevant prior studies available. FINDINGS: Nasopharynx: Unremarkable. Oropharynx: There is subtle asymmetric prominence of the left palatine tonsil as compared to the right side. Hypopharynx: Unremarkable. Larynx: Unremarkable. Normal epiglottis. Retropharyngeal space: Unremarkable. Submandibular/Parotid glands: Normal. Glands are normal in size. Thyroid: Normal. No enlarged or calcified nodules. Lymph nodes: Unremarkable. No lymphadenopathy. Trachea: Visualized trachea is unremarkable. Lungs: Unremarkable as visualized. Bones/joints: Unremarkable. No acute fracture. Soft tissues: Unremarkable. No significant soft tissue swelling. IMPRESSION: Mild asymmetric prominence of the left palatine tonsil as compared to the left side. Direct inspection by ENT may be of benefit as warranted clinically. Electronically signed by: Charity Greenberg On 12/26/2020 10:47:51 AM
== END ==
LOC: M RAD 09:58
PROVIDERS: ATTEND Otolaryngology
DX: R04.2 Hemoptysis (principal); J35.9 Chronic disease of tonsils and adenoids, unspecified
CPT/HCPCS: 70491; Q9967

== ENCOUNTER → 2021-01-28 | Outpatient (REF) | payer MEDICARE ==
[~2021-01-28] MED LIST changes: -ISOVUE-370 76% 100ML VIAL As Ordered ONE
== END ==
LOC: M LAB REF 09:30
PROVIDERS: ATTEND Physician Assistant Medical
DX: R19.4 Change in bowel habit (principal)

== ENCOUNTER → 2021-03-11 | Outpatient (REF) | payer MEDICARE ==
[~2021-03-11] MED LIST changes: +OMEP40CA4 PO; -OMEP40CA97 PO
== END ==
LOC: M LAB REF 17:26
PROVIDERS: ATTEND Physician Assistant Medical
DX: R19.4 Change in bowel habit (principal)

== ENCOUNTER → 2021-04-03 | Outpatient (CLI) | payer MEDICARE ==
[~2021-04-03] MED LIST changes: +PROHANCE 279.3MG/ML 15ML VIAL As Ordered ONE
--- NOTE | 2021-04-11 14:54 | REP ---
INDICATION: SCREENING HIGH RISK BREAST CA. COMPARISON: Interpretation is withheld pending retrieval of comparison breast MRI study is retrieved from February 18, 2018. This was from [facility]. TECHNIQUE: Three Juliana MRI imaging was performed with a dedicated breast coil. Axial, coronal, and sagittal T1 and T2 weighted scans were obtained with and without fat saturation in the usual fashion. The study includes dynamically acquired post gadolinium-enhanced imaging with image subtraction. Maximum intensity projection and multi planar reformation imaging is included as well. This study is interpreted with the aid of LynkD, an FDA approved computer aided detection (CAD) software program, on a dedicated breast MRI workstation. The gadolinium enhancement dose is 14 mL of intravenous ProHance. FINDINGS: There is a moderate amount of fibroglandular tissue bilaterally corresponding with the mammographic pattern. There is mild background parenchymal enhancement. There is no evidence of axillary lymphadenopathy or significant breast cystic change. High-resolution pre and post-contrast T1 and T2 weighted scans show no suspicious morphologic abnormality in either breast. Dynamically acquired sequential postcontrast images show no suspicious area of enhancement and washout kinetics in either breast to suggest malignancy. Subtraction images show no additional abnormality. IMPRESSION: BI-RADS category 1 negative bilateral breast MRI findings. No change from comparison study. <Electronically signed by John Hyde > 04/11/21 [id number]
== END ==
LOC: M RAD 13:01
PROVIDERS: ATTEND Internal Medicine Hematology & Oncology
DX: Z15.01 Genetic susceptibility to malignant neoplasm of breast (principal); N60.31 Fibrosclerosis of right breast; N60.32 Fibrosclerosis of left breast
CPT/HCPCS: A9576; C8908

== ENCOUNTER → 2021-06-05 | Outpatient (REF) | payer MEDICARE ==
[~2021-06-05] MED LIST changes: -PROHANCE 279.3MG/ML 15ML VIAL As Ordered ONE
[2021-06-06 12:30] LABS: BLOOD UREA NITROGEN 16 MG/DL (7-18); CREATININE FOR GFR 0.71 MG/DL (0.55-1.30); GLOMERULAR FILTRATION RATE > 60.0 (>45)
== END ==
LOC: M LABDRAWC 11:12
PROVIDERS: ATTEND Otolaryngology
DX: J35.1 Hypertrophy of tonsils (principal)

== ENCOUNTER → 2021-06-06 | Outpatient (CLI) | payer MEDICARE ==
[~2021-06-06] MED LIST changes: +ISOVUE-370 76% 100ML VIAL As Ordered ONE
--- NOTE | 2021-06-06 16:26 | REPVR ---
PROCEDURE INFORMATION: Exam: CT Neck With Contrast Exam date and time: 06/06/2021 3:08 PM Age: 66 years old Clinical indication: Neck pain; Additional info: Hypertrophy of tonsils TECHNIQUE: Imaging protocol: Computed tomography images of the neck with contrast. Radiation optimization: All CT scans at this facility use at least one of these dose optimization techniques: automated exposure control; mA and/or kV adjustment per patient size (includes targeted exams where dose is matched to clinical indication); or iterative reconstruction. Contrast material: ISOVUE 370; Contrast volume: 75 ml; Contrast route: INTRAVENOUS (IV); COMPARISON: CT Neck with contrast 12/26/2020 10:19 AM FINDINGS: Nasopharynx: Unremarkable. Oropharynx: Again there is suboptimal visualization of the palatine and lingual tonsils due to beam hardening artifacts from dental work. Asymmetric enlargement of the left palatine tonsil persists. Elsewhere, relatively lesser degree of tonsillar tissue prominence, also stable. Hypopharynx: Unremarkable. Larynx: Unremarkable. Normal epiglottis. Retropharyngeal space: Unremarkable. Submandibular/Parotid glands: Normal. Glands are normal in size. Thyroid: Normal. No enlarged or calcified nodules. Lymph nodes: No pathologically enlarged lymph nodes identified. Trachea: Visualized trachea is unremarkable. Lungs: The lung apices appear emphysematous. Bones/joints: Severe degenerative changes of the temporomandibular joints. Moderate disc height loss and spondylosis from C4-C5 through C6-C7. Vasculature: Proximal left subclavian artery noncalcified plaque causes mild stenosis. Soft tissues: Unremarkable. No significant soft tissue swelling. IMPRESSION: Stable asymmetrically prominent left palatine tonsil. Electronically signed by: Deanne Spaulding On 06/06/2021 16:25:51 PM
== END ==
LOC: M RAD 14:49
PROVIDERS: ATTEND Otolaryngology
DX: J35.1 Hypertrophy of tonsils (principal)
CPT/HCPCS: 70491; Q9967

== ENCOUNTER → 2021-07-11 | Outpatient (REF) | payer MEDICARE ==
[~2021-07-11] MED LIST changes: -ISOVUE-370 76% 100ML VIAL As Ordered ONE
[2021-07-11 11:32] LABS: BASO # 0.1 10^3/uL (0.0-0.2); BASO % 0.7 % (0.0-1.0); EOS # 0.2 10^3/uL (0.0-0.5); EOS % 2.5 % (0.0-3.0); HEMATOCRIT 45.3 % (36.0-47.0); HEMOGLOBIN 14.4 g/dl (12.0-15.5); LYMPH # 2.2 10^3/uL (1.5-5.0); LYMPH % 32.5 % (24.0-44.0); MEAN CORPUSCULAR HEMOGLOBIN 29.2 pg (27.0-33.0); MEAN CORPUSCULAR HGB CONC 31.8 g/dl (32.0-36.5); MEAN CORPUSCULAR VOLUME 91.9 fl (80.0-96.0); MONO # 0.5 10^3/uL (0.0-0.8); MONO % 7.5 % (2.0-8.0); NEUTROPHILS # 3.8 10^3/uL (1.5-8.5); NEUTROPHILS % 56.4 % (36.0-66.0); PLATELET COUNT, AUTOMATED 282 10^3/uL (150-450); RED BLOOD COUNT 4.93 10^6/uL (4.00-5.40); WHITE BLOOD COUNT 6.8 10^3/uL (4.0-10.0)
[2021-07-11 12:10] LABS: BLOOD UREA NITROGEN 20 MG/DL (7-18); GLOMERULAR FILTRATION RATE > 60.0 (>45); GLUCOSE, FASTING 82 MG/DL (70-100); SODIUM LEVEL 143 MEQ/L (136-145)
[2021-07-11 12:11] LABS: ALBUMIN 3.6 GM/DL (3.2-5.2); ALT/SGPT 17 U/L (12-78); BILIRUBIN,TOTAL 0.4 MG/DL (0.2-1.0); CALCIUM LEVEL 9.7 MG/DL (8.8-10.2); CARBON DIOXIDE LEVEL 24 MEQ/L (21-32); CHLORIDE LEVEL 113 MEQ/L (98-107); CHOLESTEROL LEVEL 264 MG/DL (<200); CHOLESTEROL RISK RATIO 5.866 (<5); HDL CHOLESTEROL 45 MG/DL (>40); LDL CHOLESTEROL 185 MG/DL (<100); MAGNESIUM LEVEL 2.1 MG/DL (1.8-2.4); NON-HDL-C 219 MG/DL; POTASSIUM SERUM 4.3 MEQ/L (3.5-5.1); TRIGLYCERIDES LEVEL 169 MG/DL (<150)
== END ==
LOC: M SFHCCLAY 09:16
PROVIDERS: ATTEND Family Medicine
DX: E78.2 Mixed hyperlipidemia (principal); K21.9 Gastro-esophageal reflux disease without esophagitis

== ENCOUNTER → 2021-10-17 | Outpatient (CLI) | payer MEDICARE ==
[~2021-10-17] MED LIST changes: +CVS1CAP2 PO
== END ==
LOC: M LABSMTC 10:28
PROVIDERS: ATTEND Anesthesiology
DX: Z01.812 Encounter for preprocedural laboratory examination (principal); Z20.822 Contact with and (suspected) exposure to COVID-19

== ENCOUNTER → 2021-10-17 | Outpatient (CLI) | payer MEDICARE | LOC: M EKG 11:11 | PROVIDERS: ATTEND Anesthesiology | DX: Z01.812 Encounter for preprocedural laboratory examination (principal); Z20.822 Contact with and (suspected) exposure to COVID-19 ==

== ENCOUNTER → 2021-10-18 | Outpatient (REF) | payer MEDICARE ==
[2021-10-18 15:59] LABS: BASO # 0.1 10^3/uL (0.0-0.2); BASO % 0.9 % (0.0-1.0); EOS # 0.1 10^3/uL (0.0-0.5); EOS % 1.7 % (0.0-3.0); HEMATOCRIT 44.3 % (36.0-47.0); HEMOGLOBIN 14.3 g/dl (12.0-15.5); LYMPH # 2.2 10^3/uL (1.5-5.0); LYMPH % 38.4 % (24.0-44.0); MEAN CORPUSCULAR HEMOGLOBIN 29.5 pg (27.0-33.0); MEAN CORPUSCULAR HGB CONC 32.3 g/dl (32.0-36.5); MEAN CORPUSCULAR VOLUME 91.5 fl (80.0-96.0); MONO # 0.5 10^3/uL (0.0-0.8); MONO % 9.3 % (2.0-8.0); NEUTROPHILS # 2.9 10^3/uL (1.5-8.5); NEUTROPHILS % 49.4 % (36.0-66.0); PLATELET COUNT, AUTOMATED 269 10^3/uL (150-450); RED BLOOD COUNT 4.84 10^6/uL (4.00-5.40); WHITE BLOOD COUNT 5.8 10^3/uL (4.0-10.0)
[2021-10-18 16:18] LABS: INR 0.96; PROTHROMBIN TIME 13.2 SECONDS (12.7-14.5)
[2021-10-18 16:19] LABS: BLOOD UREA NITROGEN 12 MG/DL (7-18); CALCIUM LEVEL 8.7 MG/DL (8.8-10.2); CARBON DIOXIDE LEVEL 24 MEQ/L (21-32); CHLORIDE LEVEL 113 MEQ/L (98-107); CREATININE FOR GFR 0.84 MG/DL (0.55-1.30); GLOMERULAR FILTRATION RATE > 60.0 (>45); GLUCOSE, FASTING 84 MG/DL (70-100); POTASSIUM SERUM 4.6 MEQ/L (3.5-5.1); SODIUM LEVEL 143 MEQ/L (136-145)
== END ==
LOC: M SFHCCLAY 12:16
PROVIDERS: ATTEND Family Medicine
DX: Z01.818 Encounter for other preprocedural examination (principal)

== ENCOUNTER 2021-10-22 06:59 | Day surgery (SDC) | payer MEDICARE ==
[~2021-10-22] VITALS: Ht 162.6 cm; Wt 71.7 kg
[~2021-10-22 06:59] MED LIST changes: +LIDOCAINE 1% MDV 20ML VIAL SQ PRN; +LR 1,000 ML IV ONE; +dexameTHASONE 4 MG/ML 1ML VIAL (J1100 PER 1MG) IV ONE
[2021-10-22] MEDS ORDERED: LIDOCAINE 2% 100MG/5ML SDV (FOR ANES.) As Ordered ONE (09:00)
[2021-10-22] MEDS ORDERED: fentaNYL 250 MCG/5 ML INJECTION As Ordered ONE (09:00)
[2021-10-22] MEDS ORDERED: propofoL 200 MG/20 ML VIAL As Ordered ONE (09:00)
[2021-10-22] MEDS ORDERED: ROCURONIUM BROMIDE 50 MG/5 ML VIAL As Ordered ONE (09:00)
[2021-10-22] MEDS ORDERED: MIDAZOLAM INJ 2MG/2ML VIAL (J2250 PER 1MG) As Ordered ONE (09:00)
[2021-10-22] MEDS ORDERED: dexameTHASONE 4 MG/ML 1ML VIAL (J1100 PER 1MG) As Ordered ONE (09:00)
[2021-10-22] MEDS ORDERED: SUGAMMADEX SODIUM 500 MG/5 ML VIAL (BRIDION) As Ordered ONE (09:00)
[2021-10-22] MEDS ORDERED: ONDANSETRON 4MG/2ML VIAL As Ordered ONE (09:00)
[2021-10-22] MEDS ORDERED: ACETAMINOPHEN 1000MG 100ML IV BTL (OFIRMEV) (J0131 PER 10MG) As Ordered ONE (09:00)
[2021-10-22] MEDS ORDERED: ESMOLOL INJ 100MG/10ML VIAL As Ordered ONE (09:17)
[2021-10-22] MEDS ORDERED: OXYMETAZOLINE 0.05% NASAL SPRAY (AFRIN) As Ordered ONE (09:29)
[2021-10-22] MEDS ORDERED: LR 1,000 ML IV SCH ×2 (10:15)
[2021-10-22] MEDS ORDERED: METOCLOPRAMIDE INJ 10MG/2ML VIAL (J2765 PER 1) IV PRN (10:15)
[2021-10-22] MEDS ORDERED: fentaNYL 100 MCG/2 ML INJECTION IV PRN (10:15)
[2021-10-22] MEDS ORDERED: ONDANSETRON 4MG/2ML VIAL IV PRN (10:15)
[2021-10-22] MEDS: oxyCODONE 5MG TAB PO PRN ×2 (10:20→10:55)
[2021-10-22 11:09] VITALS: BP 111/72
== END 2021-10-22 11:43 | disposition home or self-care (01) ==
LOC: M SDC 06:59
PROVIDERS: ATTEND Otolaryngology
DX: J35.1 Hypertrophy of tonsils (principal); K21.9 Gastro-esophageal reflux disease without esophagitis; E78.2 Mixed hyperlipidemia; F41.9 Anxiety disorder, unspecified; F32.9 Major depressive disorder, single episode, unspecified; Z87.891 Personal history of nicotine dependence; Z79.899 Other long term (current) drug therapy
CPT/HCPCS: 42826; 88302; J0131; J1100; J2250; J2405; J3010

== ENCOUNTER → 2021-12-11 | Outpatient (CLI) | payer MEDICARE ==
[~2021-12-11] MED LIST changes: -LIDOCAINE 1% MDV 20ML VIAL SQ PRN; -LR 1,000 ML IV ONE; -dexameTHASONE 4 MG/ML 1ML VIAL (J1100 PER 1MG) IV ONE
== END ==
LOC: M CLY 11:14
PROVIDERS: ATTEND Family Medicine
DX: M54.50 Low back pain, unspecified (principal); M25.552 Pain in left hip; M47.816 Spondylosis without myelopathy or radiculopathy, lumbar region

== ENCOUNTER → 2022-01-07 | Outpatient (REF) | payer MEDICARE ==
[2022-01-08 13:05] LABS: FREE T4 0.91 NG/DL (0.76-1.46); THYROID STIMULATING HORMONE 1.83 uIU/ML (0.358-3.740); TOTAL T3 110.2 NG/DL (60.0-181.0)
== END ==
LOC: M SFHCCLAY 14:36
PROVIDERS: ATTEND Family Medicine
DX: L65.9 Nonscarring hair loss, unspecified (principal); Z13.29 Encounter for screening for other suspected endocrine disorder

== ENCOUNTER → 2022-04-02 | Outpatient (REF) | payer MEDICARE ==
[2022-04-02 21:03] LABS: BLOOD UREA NITROGEN 15 MG/DL (7-18); CREATININE FOR GFR 0.78 MG/DL (0.55-1.30); GLOMERULAR FILTRATION RATE > 60.0 (>45)
== END ==
LOC: M LABDRAWC 16:49
PROVIDERS: ATTEND Internal Medicine Hematology & Oncology
DX: M54.50 Low back pain, unspecified (principal); R53.83 Other fatigue; R63.0 Anorexia; Z80.3 Family history of malignant neoplasm of breast; R63.4 Abnormal weight loss

== ENCOUNTER → 2022-04-04 | Outpatient (CLI) | payer MEDICARE ==
[~2022-04-04] MED LIST changes: +PROHANCE 279.3MG/ML 15ML VIAL ONE
== END ==
LOC: M PLAIMG 13:07
PROVIDERS: ATTEND Internal Medicine Hematology & Oncology
DX: M54.50 Low back pain, unspecified (principal); R53.83 Other fatigue; R63.0 Anorexia; R63.4 Abnormal weight loss; Z80.3 Family history of malignant neoplasm of breast; R92.2 Inconclusive mammogram
CPT/HCPCS: A9576; C8908

== ENCOUNTER → 2022-08-07 | Outpatient (REF) | payer MEDICARE ==
[~2022-08-07] MED LIST changes: -PROHANCE 279.3MG/ML 15ML VIAL ONE
[2022-08-07 18:28] LABS: BASO # 0.1 10^3/uL (0.0-0.2); BASO % 0.7 % (0.0-1.0); EOS # 0.1 10^3/uL (0.0-0.5); EOS % 1.8 % (0.0-3.0); HEMATOCRIT 45.3 % (36.0-47.0); HEMOGLOBIN 14.5 g/dl (12.0-15.5); LYMPH # 2.6 10^3/uL (1.5-5.0); MEAN CORPUSCULAR HEMOGLOBIN 29.5 pg (27.0-33.0); MEAN CORPUSCULAR VOLUME 92.1 fl (80.0-96.0); MONO # 0.5 10^3/uL (0.0-0.8); MONO % 7.6 % (2.0-8.0); NEUTROPHILS # 3.7 10^3/uL (1.5-8.5); NEUTROPHILS % 52.5 % (36.0-66.0); PLATELET COUNT, AUTOMATED 352 10^3/uL (150-450); RED BLOOD COUNT 4.92 10^6/uL (4.00-5.40); WHITE BLOOD COUNT 7.1 10^3/uL (4.0-10.0)
[2022-08-07 18:56] LABS: MAGNESIUM LEVEL 2.1 MG/DL (1.8-2.4)
[2022-08-07 18:57] LABS: ALBUMIN 3.9 G/DL (3.2-5.2); ALKALINE PHOSPHATASE 81 U/L (46-116); ALT/SGPT 16 U/L (7.0-40); AST/SGOT 18 U/L (<34); BILIRUBIN,TOTAL 0.7 MG/DL (0.3-1.2); BLOOD UREA NITROGEN 19 MG/DL (9-23); CALCIUM LEVEL 8.8 MG/DL (8.3-10.6); CARBON DIOXIDE LEVEL 25 MMOL/L (20-31); CHLORIDE LEVEL 109 MMOL/L (98-107); CHOLESTEROL LEVEL 267 MG/DL (<200); CHOLESTEROL RISK RATIO 5.15 (<5); CREATININE FOR GFR 0.71 MG/DL (0.55-1.30); GLOMERULAR FILTRATION RATE > 60.0 (>45); GLUCOSE, FASTING 95 MG/DL (74-106); HDL CHOLESTEROL 51.8 MG/DL (>40); LDL CHOLESTEROL 192.8 MG/DL (<100); NON-HDL-C 215 MG/DL; POTASSIUM SERUM 4.6 MMOL/L (3.5-5.1); SODIUM LEVEL 142 MMOL/L (136-145); TOTAL PROTEIN 6.7 G/DL (5.7-8.2); TRIGLYCERIDES LEVEL 112 MG/DL (<150)
== END ==
LOC: M SFHCCLAY 13:41
PROVIDERS: ATTEND Family Medicine
DX: E78.2 Mixed hyperlipidemia (principal); K21.9 Gastro-esophageal reflux disease without esophagitis; R10.10 Upper abdominal pain, unspecified

== ENCOUNTER → 2022-08-12 | Outpatient (CLI) | payer MEDICARE ==
[~2022-08-12] MED LIST changes: +GASTROGRAFIN SOLUTION 30ML As Ordered ONE; +ISOVUE-370 76% 100ML VIAL As Ordered ONE
== END ==
LOC: M RAD 13:47
PROVIDERS: ATTEND Family Medicine
DX: R10.10 Upper abdominal pain, unspecified (principal)
CPT/HCPCS: 74177; Q9963; Q9967

== ENCOUNTER → 2022-08-13 | Outpatient (CLI) | payer MEDICARE ==
[~2022-08-13] MED LIST changes: -GASTROGRAFIN SOLUTION 30ML As Ordered ONE; -ISOVUE-370 76% 100ML VIAL As Ordered ONE
== END ==
LOC: M CLY 14:08
PROVIDERS: ATTEND Family Medicine
DX: R04.2 Hemoptysis (principal)

== ENCOUNTER → 2022-09-26 | Outpatient (REF) | payer MEDICARE ==
[2022-09-26 17:37] LABS: BLOOD UREA NITROGEN 17 MG/DL (9-23); CREATININE FOR GFR 0.77 MG/DL (0.55-1.30); GLOMERULAR FILTRATION RATE > 60.0 (>45)
== END ==
LOC: M LABDRAWC 16:37
PROVIDERS: ATTEND Internal Medicine Hematology & Oncology
DX: R53.83 Other fatigue (principal); Z80.3 Family history of malignant neoplasm of breast; R63.0 Anorexia; R63.4 Abnormal weight loss

== ENCOUNTER → 2022-09-30 | Outpatient (CLI) | payer MEDICARE ==
[~2022-09-30] MED LIST changes: +ISOVUE-370 76% 100ML VIAL As Ordered ONE
== END ==
LOC: M RAD 14:24
PROVIDERS: ATTEND Internal Medicine Hematology & Oncology
DX: M54.50 Low back pain, unspecified (principal); R53.83 Other fatigue; R63.0 Anorexia; R63.4 Abnormal weight loss; Z80.3 Family history of malignant neoplasm of breast; M54.2 Cervicalgia; R04.2 Hemoptysis; K76.0 Fatty (change of) liver, not elsewhere classified; J43.2 Centrilobular emphysema; R91.8 Other nonspecific abnormal finding of lung field
CPT/HCPCS: 70491; 71260; Q9967

== ENCOUNTER → 2022-10-24 | Outpatient (CLI) | payer MEDICARE ==
[~2022-10-24] MED LIST changes: -ISOVUE-370 76% 100ML VIAL As Ordered ONE
== END ==
LOC: M PLAIMG 10:59
PROVIDERS: ATTEND Neurological Surgery
DX: E23.6 Other disorders of pituitary gland (principal)

== ENCOUNTER → 2022-11-10 | Outpatient (REF) | payer MEDICARE ==
[2022-11-10 18:20] LABS: BASO # 0.1 10^3/uL (0.0-0.2); BASO % 1.2 % (0.0-1.0); EOS # 0.2 10^3/uL (0.0-0.5); EOS % 2.8 % (0.0-3.0); HEMATOCRIT 44.7 % (36.0-47.0); HEMOGLOBIN 14.3 g/dl (12.0-15.5); LYMPH # 2.5 10^3/uL (1.5-5.0); MEAN CORPUSCULAR HEMOGLOBIN 29.7 pg (27.0-33.0); MEAN CORPUSCULAR VOLUME 92.7 fl (80.0-96.0); MONO # 0.5 10^3/uL (0.0-0.8); MONO % 8.3 % (2.0-8.0); NEUTROPHILS # 2.8 10^3/uL (1.5-8.5); NEUTROPHILS % 46.5 % (36.0-66.0); PLATELET COUNT, AUTOMATED 304 10^3/uL (150-450); RED BLOOD COUNT 4.82 10^6/uL (4.00-5.40)
[2022-11-10 18:47] LABS: C REACTIVE PROTEIN QUANTITATIV < 0.40 MG/DL (<1.0); ERYTHROCYTE SEDIMENTATION RATE 13 mm/hr (0-30)
[2022-11-10 18:49] LABS: RHEUMATOID FACTOR QUANT 5.6 IU/ML (<14); THYROID STIMULATING HORMONE 1.829 uIU/ML (0.55-4.78)
[2022-11-10 18:50] LABS: ALBUMIN 3.6 G/DL (3.2-5.2); ALKALINE PHOSPHATASE 67 U/L (46-116); ALT/SGPT 12 U/L (7.0-40); AST/SGOT 15 U/L (<34); BILIRUBIN,TOTAL 0.5 MG/DL (0.3-1.2); BLOOD UREA NITROGEN 15 MG/DL (9-23); CALCIUM LEVEL 8.9 MG/DL (8.3-10.6); CARBON DIOXIDE LEVEL 26 MMOL/L (20-31); CHLORIDE LEVEL 110 MMOL/L (98-107); CREATININE FOR GFR 0.71 MG/DL (0.55-1.30); GLOMERULAR FILTRATION RATE > 60.0 (>45); GLUCOSE, FASTING 93 MG/DL (74-106); POTASSIUM SERUM 4.6 MMOL/L (3.5-5.1); SODIUM LEVEL 143 MMOL/L (136-145); TOTAL 25(OH) VITAMIN D 43.8 NG/ML (20.0-100.0); TOTAL PROTEIN 6.3 G/DL (5.7-8.2)
[2022-11-12 12:08] LABS: ANTINUCLEAR ANTIBODIES DIRECT Negative (Negative)
== END ==
LOC: M LABDRAWC 16:48
PROVIDERS: ATTEND Psychiatry & Neurology Neurology
DX: R51.9 Headache, unspecified (principal); Z79.899 Other long term (current) drug therapy

== ENCOUNTER → 2023-03-25 | Outpatient (CLI) | payer MEDICARE ==
[~2023-03-25] MED LIST changes: +PROHANCE 279.3MG/ML 15ML VIAL As Ordered ONE
== END ==
LOC: M RAD 10:36
PROVIDERS: ATTEND Internal Medicine Hematology & Oncology
DX: Z91.89 Other specified personal risk factors, not elsewhere classified (principal); Z80.3 Family history of malignant neoplasm of breast; R92.2 Inconclusive mammogram
CPT/HCPCS: A9576; C8908

== ENCOUNTER → 2023-04-29 | Outpatient (CLI) | payer MEDICARE ==
[~2023-04-29] MED LIST changes: +ISOVUE-370 76% 100ML VIAL As Ordered ONE; -PROHANCE 279.3MG/ML 15ML VIAL As Ordered ONE
== END ==
LOC: M RAD 07:55
PROVIDERS: ATTEND Internal Medicine Hematology & Oncology
DX: R04.2 Hemoptysis (principal); J43.2 Centrilobular emphysema; R91.8 Other nonspecific abnormal finding of lung field
CPT/HCPCS: 71260; Q9967

== ENCOUNTER → 2023-07-13 | Outpatient (REF) | payer MEDICARE ==
[~2023-07-13] MED LIST changes: -ISOVUE-370 76% 100ML VIAL As Ordered ONE
[2023-07-13 18:56] LABS: APPEARANCE, URINE CLEAR (CLEAR); BACTERIA, URINE AUTO NEGATIVE (NEGATIVE); BILIRUBIN, URINE AUTO NEGATIVE (NEGATIVE); BLOOD, URINE BLOOD NEGATIVE (NEGATIVE); COLOR, URINE YELLOW (YELLOW); GLUCOSE, URINE (UA) AUTO NEGATIVE (NEGATIVE); KETONE, URINE AUTO TRACE mg/dL (NEGATIVE); LEUKOCYTE ESTERASE, URINE AUTO TRACE (NEGATIVE); MUCUS, URINE SMALL (NEGATIVE); NITRITE, URINE AUTO NEGATIVE (NEGATIVE); PROTEIN, URINE AUTO NEGATIVE (NEGATIVE); RBC, URINE AUTO 0 /HPF (0-3); SQUAMOUS EPITHELIAL CELL UR AU 1 /HPF (0-6); UROBILINOGEN, URINE AUTO 0.2 mg/dL (0.0-2.0); WBC, URINE AUTO 7 /HPF (0-3)
== END ==
LOC: M SMT 17:29
PROVIDERS: ATTEND Physician Assistant
DX: R39.15 Urgency of urination (principal)

== ENCOUNTER → 2023-09-14 | Outpatient (REF) | payer MEDICARE ==
[~2023-09-14] MED LIST changes: -EFFE37.5 PO; +EFFE37.52 PO
[2023-09-14 17:55] LABS: BLOOD UREA NITROGEN 13 MG/DL (9-23); CREATININE FOR GFR 0.91 MG/DL (0.55-1.30); GLOMERULAR FILTRATION RATE > 60.0 (>45)
== END ==
LOC: M LABDRAWC 17:11
PROVIDERS: ATTEND Psychiatry & Neurology Neurology
DX: I10 Essential (primary) hypertension (principal)

== ENCOUNTER → 2023-09-23 | Outpatient (CLI) | payer MEDICARE | LOC: M RAD 15:00 | PROVIDERS: ATTEND Family Medicine | DX: M25.552 Pain in left hip (principal); M70.62 Trochanteric bursitis, left hip; M16.12 Unilateral primary osteoarthritis, left hip ==

== ENCOUNTER → 2023-10-13 | Outpatient (CLI) | payer MEDICARE | LOC: M RAD 14:03 | PROVIDERS: ATTEND Internal Medicine Pulmonary Disease | DX: R91.8 Other nonspecific abnormal finding of lung field (principal) ==

== ENCOUNTER → 2024-02-12 | Outpatient (REF) | payer MEDICARE ==
[2024-02-12 18:38] LABS: BLOOD UREA NITROGEN 13 MG/DL (9-23); CREATININE FOR GFR 0.73 MG/DL (0.55-1.30); GLOMERULAR FILTRATION RATE > 60.0 (>45)
== END ==
LOC: M LABDRAWC 16:44
PROVIDERS: ATTEND Psychiatry & Neurology Neurology
DX: I10 Essential (primary) hypertension (principal)

== ENCOUNTER → 2024-05-16 | Outpatient (REF) | payer MEDICARE ==
[~2024-05-16] MED LIST changes: +BREO1INH INH; +PROA1AER2 IN
[2024-05-16 17:06] LABS: BASO # 0.1 10^3/uL (0.0-0.2); BASO % 0.8 % (0.0-1.0); EOS # 0.2 10^3/uL (0.0-0.5); EOS % 2.3 % (0.0-3.0); HEMATOCRIT 45.3 % (36.0-47.0); HEMOGLOBIN 14.9 g/dl (12.0-15.5); LYMPH # 2.2 10^3/uL (1.5-5.0); LYMPH % 33.7 % (24.0-44.0); MEAN CORPUSCULAR HEMOGLOBIN 29.4 pg (27.0-33.0); MEAN CORPUSCULAR HGB CONC 32.9 g/dl (32.0-36.5); MEAN CORPUSCULAR VOLUME 89.5 fl (80.0-96.0); MONO # 0.5 10^3/uL (0.0-0.8); NEUTROPHILS # 3.6 10^3/uL (1.5-8.5); NEUTROPHILS % 54.7 % (36.0-66.0); PLATELET COUNT, AUTOMATED 311 10^3/uL (150-450); RED BLOOD COUNT 5.06 10^6/uL (4.00-5.40); WHITE BLOOD COUNT 6.5 10^3/uL (4.0-10.0)
[2024-05-16 17:40] LABS: ALBUMIN 3.8 G/DL (3.2-5.2); ALKALINE PHOSPHATASE 81 U/L (46-116); ALT/SGPT 18 U/L (7.0-40); AST/SGOT 16 U/L (<34); BILIRUBIN,TOTAL 0.7 MG/DL (0.3-1.2); BLOOD UREA NITROGEN 14 MG/DL (9-23); CARBON DIOXIDE LEVEL 25 MMOL/L (20-31); CHLORIDE LEVEL 111 MMOL/L (98-107); CHOLESTEROL LEVEL 264 MG/DL (<200); CREATININE FOR GFR 0.79 MG/DL (0.55-1.30); GLOMERULAR FILTRATION RATE > 60.0 (>45); GLUCOSE, FASTING 94 MG/DL (74-106); HDL CHOLESTEROL 62.8 MG/DL (>40); LDL CHOLESTEROL 185.2 MG/DL (<100); MAGNESIUM LEVEL 2.2 MG/DL (1.8-2.4); NON-HDL-C 201.2 MG/DL; POTASSIUM SERUM 4.7 MMOL/L (3.5-5.1); SODIUM LEVEL 141 MMOL/L (136-145); TOTAL PROTEIN 6.8 G/DL (5.7-8.2); TRIGLYCERIDES LEVEL 80 MG/DL (<150)
[2024-05-16 17:41] LABS: FREE T4 1.09 NG/DL (0.89-1.76); THYROID STIMULATING HORMONE 2.193 uIU/ML (0.55-4.78)
== END ==
LOC: M SFHCCLAY 09:27
PROVIDERS: ATTEND Family Medicine
DX: Z01.818 Encounter for other preprocedural examination (principal); K21.9 Gastro-esophageal reflux disease without esophagitis; E78.2 Mixed hyperlipidemia; R07.89 Other chest pain

== ENCOUNTER 2024-05-24 09:26 | Day surgery (SDC) | payer MEDICARE ==
[~2024-05-24] VITALS: Ht 162.6 cm; Wt 66.0 kg
[2024-05-24] MEDS: NS 1,000 ML IV ONE (09:59)
[2024-05-24] MEDS ORDERED: propofoL 200 MG/20 ML VIAL As Ordered ONE (10:15)
[2024-05-24 12:31] VITALS: TEMP 97.1
[2024-05-24 12:52] VITALS: BP 111/78; O2SAT 99
== END 2024-05-24 12:57 | disposition home or self-care (01) ==
LOC: M OPP 09:26
PROVIDERS: ATTEND Internal Medicine Gastroenterology
DX: Z86.010 Personal history of colon polyps (principal); Z80.0 Family history of malignant neoplasm of digestive organs; K63.5 Polyp of colon; Q43.8 Other specified congenital malformations of intestine; K63.89 Other specified diseases of intestine; K64.8 Other hemorrhoids; K44.9 Diaphragmatic hernia without obstruction or gangrene; E78.00 Pure hypercholesterolemia, unspecified; K21.9 Gastro-esophageal reflux disease without esophagitis; M19.90 Unspecified osteoarthritis, unspecified site; F41.9 Anxiety disorder, unspecified; J43.9 Emphysema, unspecified; Z91.048 Other nonmedicinal substance allergy status; Z79.51 Long term (current) use of inhaled steroids; Z79.899 Other long term (current) drug therapy

== ENCOUNTER → 2024-06-14 | Outpatient (REF) | payer MEDICARE | LOC: M LABDRAWC 16:30 | PROVIDERS: ATTEND Psychiatry & Neurology Neurology | DX: L93.0 Discoid lupus erythematosus (principal); Z11.8 Encounter for screening for other infectious and parasitic diseases ==

== ENCOUNTER → 2024-11-14 | Outpatient (CLI) | payer MEDICARE ==
[~2024-11-14] MED LIST changes: -AMIT24CA7 PO; +ISOVUE-300 61% 100ML VIAL As Ordered ONE; +LIDOCAINE 1% MDV 20ML VIAL As Ordered ONE; +LUBI24CA32 PO; +methylPREDNISolone SUSP 40MG/ML 1ML VIAL (DEPO MEDROL) As Ordered ONE
== END ==
LOC: M RAD 14:28
PROVIDERS: ATTEND Physician Assistant Surgical
DX: M16.12 Unilateral primary osteoarthritis, left hip (principal)
CPT/HCPCS: 20610; 77002; J1010; Q9967

== ENCOUNTER → 2024-11-30 | Outpatient (CLI) | payer MEDICARE ==
[~2024-11-30] MED LIST changes: -ISOVUE-300 61% 100ML VIAL As Ordered ONE; -LIDOCAINE 1% MDV 20ML VIAL As Ordered ONE; -methylPREDNISolone SUSP 40MG/ML 1ML VIAL (DEPO MEDROL) As Ordered ONE
== END ==
LOC: M RAD 13:45
PROVIDERS: ATTEND Internal Medicine Pulmonary Disease
DX: R91.8 Other nonspecific abnormal finding of lung field (principal); J43.9 Emphysema, unspecified

== ENCOUNTER → 2024-12-23 | Outpatient (CLI) | payer MEDICARE ==
[~2024-12-23] MED LIST changes: +TOPI-257 PO; -TOPI100T9 PO
== END ==
LOC: M PLAIMG 09:26
PROVIDERS: ATTEND Physician Assistant Surgical
DX: M47.26 Other spondylosis with radiculopathy, lumbar region (principal)

== ENCOUNTER → 2025-03-21 | Outpatient (REF) | payer MEDICARE | LOC: M SFHCCLAY 15:52 | PROVIDERS: ATTEND Physician Assistant | DX: R30.0 Dysuria (principal) ==

== ENCOUNTER → 2025-05-22 | Outpatient (REF) | payer MEDICARE ==
[2025-05-22 17:49] LABS: CREATININE FOR GFR 0.78 MG/DL (0.55-1.30); GLOMERULAR FILTRATION RATE 82.7 (>45)
== END ==
LOC: M LABDRAWC 17:03
PROVIDERS: ATTEND Psychiatry & Neurology Neurology
DX: I10 Essential (primary) hypertension (principal)

== ENCOUNTER → 2025-05-22 | Outpatient (REF) | payer MEDICARE ==
[2025-05-22 17:22] LABS: APPEARANCE, URINE HAZY (CLEAR); BACTERIA, URINE AUTO 1+ (NEGATIVE); BILIRUBIN, URINE AUTO NEGATIVE (NEGATIVE); BLOOD, URINE BLOOD NEGATIVE (NEGATIVE); GLUCOSE, URINE (UA) AUTO NEGATIVE (NEGATIVE); KETONE, URINE AUTO NEGATIVE (NEGATIVE); LEUKOCYTE ESTERASE, URINE AUTO NEGATIVE (NEGATIVE); MUCUS, URINE SMALL (NEGATIVE); NITRITE, URINE AUTO NEGATIVE (NEGATIVE); PROTEIN, URINE AUTO NEGATIVE (NEGATIVE); RBC, URINE AUTO 0 /HPF (0-3); SPECIFIC GRAVITY URINE AUTO 1.017 (1.002-1.035); SQUAMOUS EPITHELIAL CELL UR AU 1 /HPF (0-6); UROBILINOGEN, URINE AUTO 0.2 mg/dL (0.0-2.0); WBC, URINE AUTO 2 /HPF (0-3)
== END ==
LOC: M SFHCCLAY 10:58
PROVIDERS: ATTEND Family Medicine
DX: R39.15 Urgency of urination (principal); R30.0 Dysuria

== ENCOUNTER → 2025-05-22 | Outpatient (REF) | payer MEDICARE ==
[2025-05-22 17:20] LABS: PLATELET COUNT, AUTOMATED 294 10^3/uL (150-450)
[2025-05-22 17:24] LABS: INR 0.95
== END ==
LOC: M LABDRAWC 17:01
PROVIDERS: ATTEND Orthopaedic Surgery
DX: Z01.818 Encounter for other preprocedural examination (principal)

== ENCOUNTER → 2025-08-07 | Outpatient (REF) | payer MEDICARE ==
[2025-08-07 18:46] LABS: BASO # 0.1 10^3/uL (0.0-0.2); BASO % 0.9 % (0.0-1.0); EOS # 0.1 10^3/uL (0.0-0.5); EOS % 1.8 % (0.0-3.0); LYMPH # 2.2 10^3/uL (1.5-5.0); LYMPH % 33.9 % (24.0-44.0); MONO # 0.5 10^3/uL (0.0-0.8); MONO % 8.1 % (2.0-8.0); NEUTROPHILS # 3.6 10^3/uL (1.5-8.5); NEUTROPHILS % 55.0 % (36.0-66.0); PLATELET COUNT, AUTOMATED 333 10^3/uL (150-450)
[2025-08-07 18:49] LABS: RHEUMATOID FACTOR QUANT < 3.5 IU/ML (<14)
[2025-08-07 18:52] LABS: ALT/SGPT 17 U/L (7.0-40); AST/SGOT 20 U/L (<34); CALCIUM LEVEL 9.0 MG/DL (8.3-10.6); CARBON DIOXIDE LEVEL 27 MMOL/L (20-31); CHLORIDE LEVEL 107 MMOL/L (98-107); CHOLESTEROL LEVEL 246 MG/DL (<200); CHOLESTEROL RISK RATIO 3.87 (<5); CREATININE FOR GFR 0.80 MG/DL (0.55-1.30); GLOMERULAR FILTRATION RATE 80.2 (>45); LDL CHOLESTEROL 164.5 MG/DL (<100); MAGNESIUM LEVEL 2.5 MG/DL (1.8-2.4); NON-HDL-C 182.5 MG/DL; POTASSIUM SERUM 4.7 MMOL/L (3.5-5.1); SODIUM LEVEL 142 MMOL/L (136-145); TRIGLYCERIDES LEVEL 90 MG/DL (<150)
[2025-08-07 20:26] LABS: C REACTIVE PROTEIN QUANTITATIV < 0.50 MG/DL (<1.0)
== END ==
LOC: M SFHCCLAY 10:47
PROVIDERS: ATTEND Family Medicine
DX: K21.9 Gastro-esophageal reflux disease without esophagitis (principal); K58.1 Irritable bowel syndrome with constipation; M25.50 Pain in unspecified joint; E78.2 Mixed hyperlipidemia